=== PATIENT | male | born 1945 | race Caucasian/White ===

== ENCOUNTER 2018-04-23 07:25 | Inpatient (IN) | payer MEDICARE, BC ==
[2018-04-23] MEDS ORDERED: methylPREDNISolone 125 MG* 2 ML VIAL IV ONE (07:31)
[2018-04-23] MEDS ORDERED: Albuterol/Ipratropium NEB.SOL* Albuterol 2.5 MG/Ipratropium 0.5 MG 3 ML INH ONE (07:31)
[2018-04-23] MEDS ORDERED: NS 0.9% 1000 ML* 1,000 ML IV ONE ×2 (07:32→08:03)
[2018-04-23] MEDS ORDERED: Azithromycin IV(*) 500 MG in NS 0.9% 250 ML* 250 ML IVPB ONE (07:34)
[2018-04-23 07:42] LABS: ABS Basophils 0.1 10^3/ul (0-0.2); ABS Eosinophils 0.4 10^3/ul (0-0.6); ABS Lymphocytes 4.5 10^3/ul (1.0-4.8); ABS Monocytes 0.9 10^3/ul (0-0.8); ABS Neutrophils 7.7 10^3/ul (1.5-7.7); ABS Nucleated RBC 0 10^3/ul; Eosinophil % 3.1 % (0-6); Hematocrit 30 % (42-52); Hemoglobin 9.5 g/dl (14.0-18.0); Lymphocyte % 33.2 % (25-47); Mean Corpuscular HGB Conc 31 g/dl (31-36); Mean Corpuscular Hemoglobin 30 pg (27-31); Mean Corpuscular Volume 95 fL (80-94); Mean Platelet Volume 9.5 um3 (7.4-10.4); Nucleated Red Blood Cells % 0.1; Platelet Count 297 10^3/ul (150-450); Red Blood Count 3.18 10^6/ul (4.00-5.40); Red Cell Distribution Width 14 % (10.5-15); White Blood Count 13.6 10^3/ul (3.5-10.8)
--- NOTE | 2018-04-23 07:54 | ED ---
Respiratory - HPI Summary HPI Summary: This patient is a 73 year old M BIBA to ED with a chief complaint of COPD exacerbation since 299 this morning. The patient notes difficulty breathing overnight and called EMS in the morning. EMS reports finding him adkins, mottled and with an episode of unresponsiveness. PIV established by EMS, patient put on CPAP with ECO2 of 10, RR 8 and SPO2 88%. Albuterol and Atrovent given by EMS. The patient rates the pain 0/10 in severity. Symptoms aggravated by nothing. Symptoms alleviated by EMS treatment. Nurse in room reports wheezing. Patient denies CP and abdominal pain. The patient reports he smokes 2 PPD. Patient is not on O2 at home. PMHx of DM and HTN. No hx of DVT. - History of Current Complaint Chief Complaint: EDRespiratoryDistress Stated Complaint: RESP DISTRESS Time Seen by Provider: 04/23/18 07:35 Hx Obtained From: Patient Onset/Duration: Sudden Onset, Lasting Hours - since 299, Still Present Current Severity: None Pain Intensity: 0 Character: Wheezing Aggravating Factor(s): Nothing Alleviating Factor(s): Other - treatment given by EMS (CPAP with ECO2 of 10, RR 8 and SPO2 88%, Albuterol and Atrovent) - Allergy/Home Medications Allergies/Adverse Reactions: Allergies Allergy/AdvReac Type Severity Reaction Status Date / Time levofloxacin Allergy Hives/Diff. Verified 04/23/18 07:36 Breathing/I tching Penicillins Allergy Rash Verified 04/23/18 07:36 PMH/Surg Hx/FS Hx/Imm Hx Endocrine/Hematology History: Reports: Hx Diabetes - TYPE 2 Cardiovascular History: Reports: Hx Hypertension - ON MEDS, Other Cardiovascular Problems/Disorders - HIGH CHOLESTEROL Respiratory History: Denies: Other Respiratory Problems/Disorders GI History: Reports: Hx Gastroesophageal Reflux Disease Denies: Other GI Disorders History: Reports: Hx Kidney Stones - current Denies: Other Problems/Disorders Musculoskeletal History: Denies: Other Musculoskeletal History Sensory History: Reports: Hx Cataracts - VINNIE Denies: Hx Hearing Aid Comment Only: Hx Contacts or Glasses - GLASSES Opthamlomology History: Reports: Hx Cataracts - VINNIE Comment Only: Hx Contacts or Glasses - GLASSES Neurological History: Reports: Hx Migraine - IN THE PAST Denies: Other Neuro Impairments/Disorders Psychiatric History: Reports: Hx Anxiety - PAST, Hx Depression - PAST - Surgical History Surgery Procedure, Year, and Place: LEFT SHOULDER , 1990, [place]. [place] [facility] [place] HYDROCELE REPAIR, 1970S. ARM FX, 1954. TONSILECTOMY A CHILD WITH ADENOIDECTOMY. [place]RETERAL ST[place] 02/[place], [facility] [place] Hx Anesthesia Reactions: No Infectious Disease History: No Infectious Disease History: Denies: Traveled Outside the [place] in Last 30 Days - Family History Known Family History: Positive: Other Family History: hiatal hernia - mother - Social History Alcohol Use: Rare Alcohol Amount: 3 PER YEAR Substance Use Type: Reports: None Smoking Status (MU): Heavy Every Day Tobacco Smoker Type: Cigarettes Amount Used/How Often: 2 PACKS A DAY Length of Time of Smoking/Using Tobacco: pack and a half a day Have You Smoked in the Last Year: Yes Review of Systems Positive: Other - per EMS, the patient was deutsch, mottled, and had 1 episode of unresponsiveness Negative: Chest Pain Positive: Other - COPD exacerbation, difficulty breathing, wheezing Negative: Abdominal Pain All Other Systems Reviewed And Are Negative: Yes Physical Exam - Summary Physical Exam Summary: GENERAL: Patient is a well developed and nourished M who is lying comfortable in the stretcher. Patient is not in any acute respiratory distress. HEAD AND FACE: Normocephalic EYES: PERRLA, EOMI x 2. EARS: Hearing grossly intact. MOUTH: Oropharynx within normal limits. NECK: Supple, trachea is midline, no adenopathy, no JVD, no carotid bruit. CHEST: Symmetric, no tenderness at palpation LUNGS: No crackles. Wheezing throughout. Increased work of breathing. CVS: Regular rhythm, Tachycardic, S1 and S2 present, no murmurs or gallops appreciated. ABDOMEN: Soft, non-tender. Bowel sounds are normal. No abdominal abnormal pulsations. EXTREMITIES: Full ROM in all major joints, no cyanosis or clubbing. Bilateral pedal edema, worse on L than on R. NEURO: Alert and oriented x 3. No acute neurological deficits. Speech is normal and follows commands. SKIN: Dry and warm Triage Information Reviewed: Yes Vital Signs On Initial Exam: Initial Vitals Temp Pulse Resp BP Pulse Ox 95.4 F 113 20 190/83 91 04/23/18 07:31 04/23/18 07:31 04/23/18 07:31 04/23/18 07:31 04/23/18 07:31 Vital Signs Reviewed: Yes Diagnostics - Vital Signs Vital Signs Temp Pulse Resp BP Pulse Ox 04/23/18 07:41 102 29 206/95 100 04/23/18 07:39 103 20 100 04/23/18 07:37 104 22 204/95 100 04/23/18 07:34 20 04/23/18 07:31 95.4 F 113 20 190/83 91 - Laboratory Lab Results: Lab Results 04/23/18 Range/Units 07:32 WBC 13.6 H (3.5-10.8) 10^3/ul RBC 3.18 L (4.00-5.40) 10^6/ul Hgb 9.5 L (14.0-18.0) g/dl Hct 30 L (42-52) % MCV 95 H (80-94) fL MCH 30 (27-31) pg MCHC 31 (31-36) g/dl RDW 14 (10.5-15) % Plt Count 297 (150-450) 10^3/ul MPV 9.5 (7.4-10.4) um3 Neut % (Auto) 56.4 (38-83) % Lymph % (Auto) 33.2 (25-47) % Turner % (Auto) 6.9 (0-7) % Eos % (Auto) 3.1 (0-6) % Baso % (Auto) 0.4 (0-2) % Absolute Neuts (auto) 7.7 (1.5-7.7) 10^3/ul Absolute Lymphs (auto) 4.5 (1.0-4.8) 10^3/ul Absolute Monos (auto) 0.9 H (0-0.8) 10^3/ul Absolute Eos (auto) 0.4 (0-0.6) 10^3/ul Absolute Basos (auto) 0.1 (0-0.2) 10^3/ul Absolute Nucleated RBC 0 10^3/ul Nucleated RBC % 0.1 Result Diagrams: 04/23/18 07:32 04/24/18 06:00 Lab Statement: Any lab studies that have been ordered have been reviewed, and results considered in the medical decision making process. - Radiology CXR Radiology Interpretation Completed By: Radiologist - In this clinical setting chest x-ray findings are most consistent with vascular congestion and/or pulmonary edema. ED physician has reviewed this radiology report. - EKG 0739 Cardiac Rate: Tachycardia - 103 BPM EKG Rhythm: Sinus Tachycardia EKG Interpretation: RBBB, LVH Disposition - Course Assessment/Plan: This patient is a 73 year old M BIBA to ED with a chief complaint of COPD exacerbation since 0300 this morning. Labs were reviewed and remarkable for pH for 7.19, pCO2 at 40, and bicarb of 15.5, consistent for metabolic acidosis. Remarkable WBC of 13.6, creatinine of 3.3 and BUN of 52, which is chronic. Lactic acid is 2.9. glucose is 375. BNP is 629. CXR reveals pulmonary edema. Covered broadly with vancomycin and aztreonam, given that he is allergic to penicillin. The patient was started on insulin drip. Patient is currently stable on BiPAP and admitted to ICU. Case discussed with Dr. De Santiago who spoke to the hospitalist, Dr. Guzman, who accepts the patient for admisison. I discussed results with patient. The patient agrees with this plan. - Diagnoses Provider Diagnoses: Difficulty breathing, Hyperglycemia - Physician Notifications Discussed Care Of Patient With: Ryan De Santiago Time Discussed With Above Provider: 08:50 Instructed by Provider To: Other - Consulted Dr. De Santiago about the patient's case ; he will consult Dr. De Santiago about the patient. Dr. De Santiago consulted Dr. Guzman who accepts the patient for admission. - Critical Care Time Critical Care Time: 30-74 min - 45 minutes Discharge - Sign-Out/Discharge Documenting (check all that apply): Patient Departure - Discharge Plan Condition: Stable Disposition: ADMITTED TO [facility] - Billing Disposition and Condition Condition: STABLE Disposition: Admitted to [facility] - Attestation Statements Document Initiated by Scribe: Yes Documenting Scribe: Jorge Crooks Provider For Whom Dao is Documenting (Include Credential): Chase Seay MD Scribe Attestation: Jorge Alvarez, scribed for Chase Seay MD on 04/24/18 at 0757. Scribe Documentation Reviewed: Yes Provider Attestation: The documentation as recorded by the scribJorge murphy accurately reflects the service I personally performed and the decisions made by me, Chase Seay MD
[2018-04-23 08:03] LABS: INR 0.9 (0.77-1.02)
[2018-04-23 08:36] LABS: EGFR Non-African American 18.2 (>60)
[2018-04-23] MEDS ORDERED: Vancomycin(*) 1,000 MG in NS 0.9% 250 ML* 250 ML IVPB ONE (08:44)
[2018-04-23] MEDS ORDERED: Insulin IVPB 100 units/100 ml 100 UNITS/100 ML UNIT IVPB ONE (08:53)
[2018-04-23] MEDS ORDERED: Aztreonam (*) 1 GM in NS 0.9% 50 ML* 50 ML IVPB SCH (09:00)
[2018-04-23] MEDS ORDERED: Acetaminophen TAB* 325 MG PO PRN (09:10)
[2018-04-23] MEDS ORDERED: NS 0.9% 1000 ML* 1,000 ML IV SCH (09:15)
[2018-04-23] MEDS ORDERED: cefTRIAXone(*) 1 GM in NS 0.9% 50 ML* 50 ML IVPB SCH ×2 (10:00→12:00)
[2018-04-23] MEDS ORDERED: Insulin IVPB 100 units/100 ml 100 UNITS/100 ML UNIT IVPB SCH (10:00)
--- NOTE | 2018-04-23 10:06 | RAD ---
INDICATION: Shortness of breath. COMPARISON: Most recent comparison chest x-rays dated March 22, 2010 TECHNIQUE: Single AP portable view of the chest was obtained. FINDINGS: Image quality is compromised due to the relative inferiority of a portable chest x-ray. An automatic external defibrillator pad is noted overlying the right upper lung. The heart and mediastinum exhibit normal size and contour. The pulmonary vasculature appears engorged and indistinct. There are faint patchy densities overlying the bilateral lungs. There is no lobar consolidation. The costophrenic angles are adequately defined. Visualized bones are normal for the patient's age. IMPRESSION: In this clinical setting chest x-ray findings are most consistent with vascular congestion and/or pulmonary edema.
[2018-04-23] MEDS ORDERED: cefTRIAXone(*) 1 GM ADVAN/BAG ONE (10:37)
[2018-04-23] MEDS ORDERED: Albuterol/Ipratropium NEB.SOL* Albuterol 2.5 MG/Ipratropium 0.5 MG 3 ML INH SCH (11:00)
[2018-04-23] MEDS ORDERED: Metoprolol Tartrate IV* 1 MG/ML 5 ML VIAL IV PRN (12:08)
[2018-04-23] MEDS ORDERED: Metoprolol Tartrate IV* 1 MG/ML 5 ML VIAL ONE (12:15)
[2018-04-23] MEDS ORDERED: Perflutren Lipid Microsphere* 3 ML VIAL ONE (12:41)
[2018-04-23] MEDS ORDERED: hydrALAZINE IV* 20 MG/ML VIAL IV SLOW PU ONE (13:00)
[2018-04-23] MEDS: Polyethylene Glycol 3350* 17 GM PACKET PO SCH ×2 (13:09→21:45)
[2018-04-23] MEDS ORDERED: Heparin VIAL(*) 5000 UNITS/ML VIAL (FIVE THOUSAND) SUBCUT SCH (14:00)
[2018-04-23] MEDS ORDERED: Morphine INJ* 2 MG/ML 1 ML SYRINGE (TWO MG - NEW SYRINGE VERSION) ONE (14:24)
[2018-04-23] MEDS ORDERED: Heparin DRIP 25,000 UNITS(*) 25,000 UNITS/500 ML BAG IV SCH (14:45)
--- NOTE | 2018-04-23 14:55 | HP ---
CC: Dr. Mcleod; Intensive Care Physician; Dr. Berhane De Santiago HISTORY AND PHYSICAL: DATE OF ADMISSION: 04/23/18 TIME OF EVALUATION: 8:45 a.m. PRIMARY CARE PHYSICIAN: Dr. Mcleod. CHIEF COMPLAINT: Shortness of breath. Please note that the history is limited as the patient is in respiratory distress on BiPAP. HISTORY OF PRESENT ILLNESS: Mr. Damon is a 73-year-old male with a past medical history of hypertension, type 2 diabetes, GERD, hyperlipidemia, nephrolithiasis, who presented to the emergency room with severe shortness of breath. The patient states that he was feeling well yesterday and around 3 in the morning, he started to feel short of breath and that progressed quickly. He states that he took a breathing treatment and the symptoms continue to worsen and then he called 911. Originally, the patient was called to the emergency room as an ABC alert as EMS found him in respiratory distress described as "deutsch , mottled, and with an episode of unresponsiveness." The patient was put on CPAP with an end tidal CO2 of 10, respiratory rate is 8, oxygen saturation of 88 % and he received albuterol and Atrovent. As per the ED records, the patient is a heavy smoker and he was hypertensive on arrival with a blood pressure of 206/95. The patient denies chest pain, palpitation. He said he had some chest tightness and he could not breathe well. At this point, he offers no other complaints. PAST MEDICAL HISTORY: 1. GERD. 2. Type 2 diabetes. 3. Hyperlipidemia, 4. Hypertension. 5. Lymphoma. 6. Nephrolithiasis. 7. CKD, stage 3. MEDICATION LIST: Medication list is not available at this time and will be obtained. ALLERGIES: With PENICILLIN, the patient had a rash and with LEVOFLOXACIN, he had hives, difficulty breathing and itching. FAMILY HISTORY: As per records is noncontributory. SOCIAL HISTORY: As per record, the patient smokes a [id number]-half a day. No history of alcohol or drug use. 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 REVIEW OF SYSTEMS: It is very limited due to the patient's respiratory distress , so all the pertinent negative and positive findings are in the HPI. PHYSICAL EXAMINATION GENERAL: The patient is an elderly gentleman, sitting up in the ED stretcher, in mild respiratory distress with BiPAP on. VITAL SIGNS: Temperature 97.0, heart rate 98, respiratory rate is 18, oxygen saturation is 100% on BiPAP 16/80, FiO2 70%, blood pressure 127/64. CHEST: Breath sounds bilaterally diminished with scattered wheeze and bibasilar rales. CVS: S1, S2. Regular rate and rhythm. ABDOMEN: Soft. Bowel sounds are present. EXTREMITIES: Mild bilateral lower extremity pitting edema. NEURO: He is alert, oriented x3. Able to move all 4 extremities. LABORATORY/IMAGING DATA: The patient had a CBC that showed WBC of 13.6, hemoglobin of 9.5, hematocrit of 30, platelets of 297 with 56% neutrophils. INR is 0.9. ABG showed pH of 7.19, pCO2 of 40, pO2 227 with a bicarb of 15. Chemistry showed sodium 137, potassium 0.7, chloride 107, bicarb of 17, anion gap of 13, BUN of 52, creatinine of 3.34, glucose 375, lactic acid of 2.9, calcium of 8.6, LFTs are normal. Troponin is 0.6, CRP 14.8, BNP 629. Chest x-ray has not yet been officially read, but to my read shows vascular congestion. EKG done 04/23 at 7:39 shows sinus tachycardia at 102 beats per minute with a right bundle-branch block and no acute ischemic changes. He has taller T waves , but the right bundle-branch block was already present in 2009. ASSESSMENT AND PLAN: Mr. Damon is a 73-year-old with a past medical history of gastroesophageal reflux disease, type 2 diabetes, hyperlipidemia, hypertension, lymphoma, nephrolithiasis, who presented to the emergency room in respiratory distress. 1. Acute hypoxemic respiratory failure. Etiology is unclear at this time. He appears to have some signs of chronic obstructive pulmonary disease exacerbation, so he will be continued on bronchodilators, steroids, ceftriaxone , and Zithromax. We will continue respiratory support with BiPAP. His initial blood gas showed a metabolic acidosis and we are going to repeat it. Another possibility is that this respiratory failure is cardiac in nature as the patient's x-rays suggest vascular congestion and he does have elevation of his troponin, but it is unclear if this is the cause or consequence of his respiratory failure. I am going to check an echocardiogram and the patient is going to have serial troponins. His EKG shows no acute ischemic changes and he has no complaints of chest pain at this time. Another possibility would be pulmonary embolism to explain the sudden onset of his shortness of breath. The patient has a right bundle-branch block on his EKG , but this is not new. He has no complaints of chest or lower extremity pain. I am going to check a lower extremity Doppler to rule out deep vein thrombosis. Unfortunately with his renal function, he cannot have a CTA of the chest, so when he is more stable, he will probably benefit from a v/Q scan. 2. Anion gap metabolic acidosis. Suspect secondary to his respiratory distress with poor perfusion, but the patient may also have mild diabetic ketoacidosis as his glucose is 375 and he has anion gap of 13. The patient will be admitted to intensive care unit, we are going to check fingersticks q.1 hour and he will be started on regular insulin drip and we will adjust according to his glucose. 3. Hypertensive urgency, likely secondary to his respiratory distress as his blood pressure is now normal after being on respiratory support with BiPAP. 4. DVT prophylaxis, the patient has a score of 4 on the DVT Prophylaxis Risk Assessment Guide and he will be started on subcutaneous heparin. 5. Code status is full. TIME SPENT: Approximately 55 minutes of critical care time was spent to complete the admission. [id number]/CPS #: [id number] MANGO
[2018-04-23] MEDS ORDERED: D5W NS 0.9% 20Meq KCL 1000 ML* 1,000 ML IV SCH (15:00)
[2018-04-23] MEDS ORDERED: nitroGLYCERIN DRIP* 25,000 MCG/250 ML BTL IV SCH (15:00)
[2018-04-23 15:03] LABS: Urine Appearance Cloudy; Urine Blood 3+ (Negative); Urine Color Yellow; Urine Ketones Negative (Negative); Urine Protein 2+(100 mg/dL) (Negative); Urine Red Blood Cell 1+(3-5/hpf) (Absent); Urine Specific Gravity 1.016 (1.010-1.030); Urine Urobilinogen Negative (Negative); Urine White Blood Cell Trace(0-5/hpf) (Absent)
[2018-04-23] MEDS ORDERED: Atorvastatin* 80 MG TAB PO ONE (15:39)
[2018-04-23] MEDS ORDERED: Heparin(*) 1000 UNIT/ML 10 ML VIAL CATH LAB IV ONE (15:56)
[2018-04-23] MEDS ORDERED: Midazolam* 1 MG/ML 10 ML VIAL (10 MG) ONE (15:56)
[2018-04-23] MEDS ORDERED: VERAPAMIL 2.5 MG/ML 2 ML VIAL ** 5 mg/2 ml ONE (15:56)
[2018-04-23] MEDS ORDERED: fentaNYL* 50 MCG/ML 2 ML VIAL (100 MCG VIAL) ONE (15:56)
[2018-04-23] MEDS ORDERED: Heparin 2 UNITS/ML IVPREMIX* 3,000 ML IV ONE (15:56)
[2018-04-23] MEDS ORDERED: nitroGLYCERIN DRIP* 25,000 MCG/250 ML BTL ONE (15:57)
[2018-04-23] MEDS ORDERED: Iodixanol* (CONTRAST) 320 MG/ML 100 ML SDV ONE (15:58)
[2018-04-23] MEDS ORDERED: Lidocaine 1%* 5 ML VIAL ONE (15:58)
--- NOTE | 2018-04-23 15:58 | ECHO ---
Patient: ARNULFO LEW [facility] Rec#: [id number] : 1945 Date: 04/23/2018 Age: 73y Height: 173 cm / 68.1 in Weight: 67 kg / 147.7 lbs Sex: M BSA: 1.8 Room#: ICU 10 Admit Date#: 04/23/2018 Type: Inpatient Referring: Micaela Seth MD Reading: Yamel Pollock MD Receiving Worker: Naida Clements,RADHACS,RDMS CC: Jignesh Mcleod MD Transthoracic Echocardiogram Indication: CHF BP: 174/78 HR: 86 Rhythm: NSR Findings History: COPD, smoker, HTN, HLD, DM Technical Comments: The study quality is fair. The study is technically limited due to the patient's history of COPD. Left Ventricle: The left ventricular chamber size is normal. Moderate concentric left ventricular hypertrophy is observed. There is a focal wall motion abnormality present.Hypokinesis of the basilar 2/3 of the posterior wall extending into the inferior wall and septum, best seen on 3 chamber view. The estimated ejection fraction is 40-45%. Abnormal left ventricular diastolic function is observed. Left Atrium: The left atrium is slightly dilated. Right Ventricle: The right ventricle is not well visualized. The right ventricular global systolic function is normal. Right Atrium: The right atrium is not well visualized. Aortic Valve: The aortic valve leaflets are moderately thickened. There is no evidence of aortic regurgitation. There is no evidence of aortic stenosis. Mitral Valve: The mitral valve leaflets are mildly thickened. There is trace to mild mitral regurgitation. There is no evidence of mitral stenosis. Tricuspid Valve: The tricuspid valve leaflets are normal. There is no evidence of tricuspid valve regurgitation. Unable to estimate the right ventricular systolic pressure. Pulmonic Valve: The pulmonic valve structure is not well visualized. Pericardium: There is no significant pericardial effusion. Aorta: The ascending aorta is not well visualized. The aortic arch is not well visualized. The aortic root is normal in size. Pulmonary Artery: The main pulmonary artery is not well visualized. Venous: The inferior vena cava appears normal in size. There is no change in the dimension of the inferior vena cava with respiration consistent with markedly increased right atrial pressure. Contrast: Definity was used to optimize study. A total of 3 ml was used. Administered by Chai (RING MAKER) Conclusions Moderate concentric left ventricular hypertrophy is observed. Posterior wall hypokinesis extending to the inferior wall and the septum. The estimated ejection fraction is 40. Abnormal left ventricular diastolic function is observed. The right ventricular global systolic function is normal. The aortic valve leaflets are moderately thickened, no evidence of significant stenosis, DI is 0.62 . There is trace to mild mitral regurgitation. No prior echo to compare. Measurements Name Value Normal Range IVSd (2D) 1.6 cm (0.6 - 1) LVPWd (2D) 1.4 cm (0.6 - 1) LVIDd (2D) 4.6 cm (3.6 - 5.4) LVIDs (2D) 3.7 cm - LV FS (2D) 20 % (25 - 45) Aortic Annulus 2.1 cm (1.4 - 2.6) Ao root diameter (2D) 2.9 cm (2.1 - 3.5) LA dimension (AP) 2D 4.4 cm (2.3 - 3.8) LAd ISD 4CH 4.5 cm (2.9 - 5.3) LA ISD 4CH W 5 cm (2.5 - 4.5) Name Value Normal Range LA ESV BP (A/L) index 26 ml/m2 - Name Value Normal Range MV E-wave Vmax 0.8 m/sec - MV deceleration time 182 msec - MV A-wave Vmax 0.8 m/sec - MV E:A ratio 1 ratio - LV septal e' Vmax 0.03 m/sec - LV lateral e' Vmax 0.08 m/sec - LV E:e' septal ratio 23 ratio - LV E:e' lateral ratio 10 ratio - Name Value Normal Range AV Vmax 1.2 m/sec - AV VTI 21 cm - AV peak gradient 6 mmHg - AV mean gradient 3 mmHg - LVOT Vmax 0.8 m/sec - LVOT VTI 13 cm - LVOT peak gradient 2.6 mmHg - LVOT mean gradient 1 mmHg - Name Value Normal Range RAP 8 mmHg - IVC diameter 2.1 cm - Name Value Normal Range PV Vmax 1.2 m/sec - PV peak gradient 6 mmHg -
[2018-04-23] MEDS ORDERED: Aspirin TAB* 325 MG ONE (16:22)
[2018-04-23] MEDS ORDERED: Furosemide IV* 10 MG/ML VIAL (40 MG) ONE (16:45)
[2018-04-23] MEDS ORDERED: methylPREDNISolone SOD 40 MG* 1 ML VIAL IV SCH (17:00)
[2018-04-23] MEDS ORDERED: niCARdipine 0.1MG/ML IVPREMIX* 20 MG/200 ML BAG ONE (17:17)
[2018-04-23] MEDS ORDERED: Ticagrelor* 90 MG TAB PO ONE (17:40)
[2018-04-23] MEDS ORDERED: Nitroglycerin TAB 0.4 MG* 0.4 MG TAB SL PRN (18:50)
[2018-04-23] MEDS: Albuterol/Ipratropium NEB.SOL* Albuterol 2.5 MG/Ipratropium 0.5 MG 3 ML INH PRN (20:07)
[2018-04-23] MEDS: Insulin LISPRO* 1 UNITS UNIT SUBCUT SCH (20:36)
[2018-04-23] MEDS: Ondansetron INJ* 2 MG/ML VIAL IV SCH (20:37)
--- NOTE | 2018-04-23 20:53 | RAD ---
EXAM: US Duplex Bilateral Lower Extremity Veins CLINICAL HISTORY: 73 years old, male; Signs and symptoms; Other: Short of breath; Additional info: Respiratory failure, R/O dvt TECHNIQUE: Real-time duplex ultrasound scan of the bilateral lower extremity veins integrating B-mode two-dimensional vascular structure, Doppler spectral analysis, color flow Doppler imaging and compression. COMPARISON: No relevant prior studies available. FINDINGS: Right deep veins: Unremarkable. No DVT in the right common femoral, femoral, proximal deep femoral or popliteal veins. The veins demonstrate normal color flow, are normally compressible, with normal phasic flow and/or augmentation response. Right superficial veins: Unremarkable. No thrombus in the visualized right great saphenous vein. Left deep veins: Unremarkable. No DVT in the left common femoral, femoral, proximal deep femoral or popliteal veins. The veins demonstrate normal color flow, are normally compressible, with normal phasic flow and/or augmentation response. Left superficial veins: Unremarkable. No thrombus in the visualized left great saphenous vein. Soft tissues: No acute findings. No popliteal cyst. IMPRESSION: Normal bilateral lower extremity duplex venous ultrasound.
[2018-04-23] MEDS ORDERED: Metoprolol Tartrate TAB* 25 MG PO SCH (21:00)
--- NOTE | 2018-04-23 21:01 | CONS ---
CC: Jignesh Mcleod MD CARDIOLOGY CONSULTATION REPORT: DATE OF CONSULT: 04/23/18 REASON FOR CONSULT: Shortness of breath, mild elevation in troponins, concern for ischemia. CHIEF COMPLAINT: Chest tightness and shortness of breath. HISTORY OF PRESENT ILLNESS: Mr. Damon is a 73-year-old gentleman with known renal insufficiency, ath erosclerotic risk of hypertension, type 2 diabetes and dyslipidemia but no past cardiac history. The patient has been constipated, was trying to have a bowel movement and was successful and afterwar ds developed acute shortness of breath and tightness around the lower ribcage, chest and epigastric a naveen. It was quite severe and the supervisor toy parts former were called. He was found deutsch, mottled and unresponsive. The patient was admitted to the unit through the ED, but has had ongoing shortness of breath and ches t tightness. His initial troponin was 0.6. An ECG showed some nonspecific lateral ST depression. PAST MEDICAL HISTORY: 1. Chronic renal insufficiency stage 3. 2. Type 2 diabetes. 3. Dyslipidemia. 4. Hypertension. 5. Reflux. 6. Lymphoma. 7. Nephrolithiasis. CURRENT INPATIENT MEDICATIONS: Include: 1. Albuterol nebulizer. 2. Subcutaneous heparin, converted to heparin drip. 3. Insulin. 4. Lopressor 25 mg b.i.d. 5. Morphine sulfate p.r.n. 6. Nitroglycerin drip. 7. MiraLax. 8. Potassium. ALLERGIES: Include LEVOFLOXACIN, and PENICILLIN. FAMILY HISTORY: Significant in that his father of a heart attack at age 64. SOCIAL HISTORY: The patient is an active smoker, a pack and a half a day. Denies recreational drug use. 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 REVIEW OF SYSTEMS: A 15-point review of system was positive for constipation. He was vague about an y medication adjustments recently. Positive for the acute onset of chest discomfort and shortness of breath. Negative for recent fevers, chills, sweats. PHYSICAL EXAM: The patient is 5 feet 8 inches, weighs 148 pounds with a BMI of 22.5. Vital Signs: On arrival to the emergency room, blood pressure 190/83, pulse is 113 and regular, respiratory rate 2 0, afebrile, oxygen saturation is 91% on CPAP. Currently, the patient's blood pressure is 159/59, pulse is 91, respiratory rate is 30, oxygen satura tion is 94% with oxygen of 50%. The patient is a tachypneic older gentleman, lying at 40 degrees, a bit vague (recent morphine). Psychologically pleasant and cooperative. Neurologically again vague w ith recent morphine, but awake, alert, and oriented to person and place. I did not check for time. He follows commands well and speech is articulate. HEENT: Mucous membranes moderately moist with ma sk on. Neck: No carotid bruits appreciated. Breath sounds good effort, few crackles in the bases. Coronary: S1, S2 regular with a soft systolic murmur heard in the upper sternal border. Abdomen: Active bowel sounds. Soft, nontender. He has strong radial pulses and 1 to 2+ posterior tibial puls es that are symmetrical. DIAGNOSTIC STUDIES/LAB DATA: A 12-lead ECG today shows normal sinus rhythm, 85 beats per minute, QRS axis -75, normal AV conduction times. He has a right bundle- branch block and he has a very subtle ST depression in the lateral leads, unchanged from EKG this morning. When compared with the old EKG of 2009, at that time he had a left anterior fascicular block and right bundle-branch block but no Q' s in the inferior leads as he does today. Sodium 137, potassium 3.7, bicarb 17, BUN 52, creatinine 3.34, glucose 375, lactic acid 2.9. AST 18, ALT 16. Troponin #1 of 0.60. Troponin #2 of 1.33. Troponin #3 of 31.42. White count 13.6, hemogl obin 9.5, hematocrit 30 (baseline in 2016 was 35). ABG from 7:40 this morning: pH 7.19, pCO2 of 40, pO2 of 227. Venous blood gas from 2 p.m. today: pH 7.16, pCO2 of 47, pO2 of 28. Venous oxygenatio n 41, base excess -11. Echocardiogram showed inferior wall hypokinesis and aortic valve sclerosis, full report to follow. Chest x-ray from 7:30 this morning, consistent with vascular congestion/pulmonary edema. SUMMARY: In summary, Vasquez Damon is a 73-year-old gentleman, who presented with acute onset of shor tness of breath and chest tightness following a difficult bowel movement with constipation. He was f ound obtunded and responded to CPAP in terms of respiratory distress, but continues to have ongoing c hest tightness and shortness of breath. Although his EKG did not show remarkable findings and he may have even had an old inferior wall myocardial infarction with Q's in lead 3 and aVF, the story and t roponins are very concerning for an acute inferior wall myocardial infarction, possibly circumflex as this can be hidden on EKG. As he has ongoing pain despite beta-blockers, heparin and nitro drip and troponins rising acutely, we have discussed going to the labor standards director even with the risk to his kidneys. The case has been discussed with Dr. Olsen and the labor standards director has been alerted. In the interim, we will continue with aggressive risk factor modification. I will initiate a statin as it is not listed as an allergy and he has a history of dyslipidemia and LFTs are normal. I will l eave the decision about anti-platelet agents in Dr. Olsen' hands. Mr. Damon is a high risk candidat e for interventions, but I think he is at higher risk for not intervening. I did discuss the risk of the need for dialysis and permanent kidney damage with the patient. [id number]/[facility] #: [id number]
[2018-04-23] MEDS: Ticagrelor* 90 MG TAB PO SCH (21:45)
[2018-04-23] MEDS: Metoprolol Tartrate TAB* 25 MG PO SCH (21:46)
[2018-04-23 21:47] LABS: EGFR Non-African American 20.2 (>60)
--- NOTE | 2018-04-23 23:13 | CATH ---
CC: Dr. Mcleod; Sabi Olsen MD * STENT REPORT: DATE OF PROCEDURE: 04/23/18 - ROOM #ICU-10 PRIMARY CARE PHYSICIAN: Dr. Mcleod. PROCEDURE: Right radial artery access, left heart catheterization, bilateral selective coronary cineangiography, FFR evaluation left main. Stent placement RCA 3.5 x 20 mm drug-eluting stent. FFR evaluation distal RCA. Angiosculpt Angioplasty RPDA 2.5 x 15, stent placement distal RCA 2.5 x 20 Synergy drug- eluting stent post dilated to 2.75 mm. HISTORY: A 73-year-old male with CKD stage 3, diabetes, hypertension, and hyperlipidemia; initially presented with diagnoses of respiratory failure and DKA. Subsequent history revealed a component of chest discomfort, his troponin increased to 30, he developed inferior Q-waves. Cardiology was consulted. CXR showed CHF. Echocardiogram showed an inferior wall-motion abnormality with LVEF of 40% to 45%. Pre labor arbitrator hearing office, he was in respiratory distress with expiratory wheezing and tachypnea, had been receiving IV fluids. ACCESS: Right radial artery sheath 6-F Slender. MEDICATIONS: 1. Lasix 80 mg IV in CCL prior to cath. 2. Nitroglycerin IV at 30 mcg per minute, titrated up to 90 mcg per minute because of persisting hypertension. At the end of the case, Cardene 5 mg per hour IV was added after 100 mcg of Cardene IV, reduced his systolic blood pressure to 140. 3. Radial cocktail 3000 units, nitroglycerin 300 mcg, verapamil 3 mg IA. 4. Additional heparin 2000 units, 2000 units. 5. IV adenosine was used for assessment of the left main with FFR. The adenosine was not required for assessment of the distal RCA stenosis given a significant resting abnormal FFR. DIAGNOSTIC CATHETER: 5F TIG4 which was also used to measure LV pressure. GUIDING CATHETER: RCA 6F R4, wire 14 BMW. After diagnostic coronary angiography, FFR of the left main was performed using the TIG4 catheter and IV adenosine with the catheter disengaged from the ostium. FFR was nonischemic. Left main FFR was 0.85. The 6F R4 guide was then introduced, with the plan of revascularizing the ulcerated mid RCA stenosis and then evaluate the more distal complex bifurcation disease with FFR with the hope of not needing to use additional contrast given his severe renal dysfunction. The mid RCA was stented with a 3.5 x 20 Synergy drug-eluting stent deployed at 11 atmospheres and then post dilated with a 3.5 x 20 NC balloon to 20 atmospheres for 30 seconds. FFR wire was then positioned in the RCA continuation where resting FFR was 0.66, ischemic. It was then redirected into the PDA where the FFR was 0.57, again ischemic. A 2.5 x 15 AngioSculpt balloon was therefore advanced over the FFR wire into the PDA ostium where it was inflated to 8 atmospheres for 2 minutes. The AngioSculpt balloon was removed, a 2.5 x 20 Synergy drug-eluting stent was then deployed across the PDA ostium at 11 atmospheres and then postdilated with a 2.75 x 20 NC balloon to 16 atmospheres at 30 seconds. Angiographic reassessment demonstrated a good angiographic result. Hemostatic band was used for right radial artery hemostasis. HEMODYNAMICS: Initial BP 182/88, precontrast LV pressure 163/14-35, no aortic valve gradient on pull back. ANGIOGRAPHY: Due to very low GFR # of injections and contrast per injection were minimized. Left main. The left main is short, has an ostial eccentric 50% stenosis seen best in the ROMERO cranial projection. This was hemodynamically insignificant by FFR. LAD. The LAD is calcified, moderate in size, extends to the apex, with a moderate diagonal. The LAD has no flow-limiting stenosis. Circumflex. The circumflex is not dominant, is moderate, there is a high first marginal which has a fairly short 80% stenosis which was not approached. This is followed by a small second marginal, circumflex ends with a small posterolateral. RCA. The RCA is large, dominant with a large distribution, has a proximal luminal irregularity, before the crux there is an ulcerated 80% stenosis with some haziness. The vessel then reconstitutes, then tapers, and ends with another 80% stenosis at the crux. The PDA is moderate, RCA continuation supplies a smaller and then a moderate posterolateral. Post FFR, left main and LAD anatomy is unchanged. After revascularization of the RCA mid and distal, flow is JOSE-3, including into the PDA. The PDA ostium has less than 50% stenosis, was not redilated. Distal RCA continuation is unchanged with JOSE-3 flow. CONCLUSION: 1. Two-vessel disease of circumflex OM and RCA, with intermediate ostial left main stenosis. 2. Normal FFR, left main. Excellent angiographic result with drug-eluting stent placement mid RCA, as well as distal RCA after angiosculpt balloon dilatation of the RPDA with markedly ischemic resting FFR. 3. Markedly elevated LVDP in the setting of hypertension and heart failure precath. 4. Hypertension treated with titrated IV nitroglycerin as well as Cardene. 5. Successful right radial artery access. 6. Severe renal insufficiency. [id number]/[facility] #: [id number] [place]
[2018-04-24] MEDS ORDERED: Acetaminophen TAB* 325 MG PO PRN (00:43)
[2018-04-24] MEDS ORDERED: Acetaminophen TAB* 325 MG ONE (01:05)
[2018-04-24] MEDS: Ondansetron INJ* 2 MG/ML VIAL IV SCH ×6 (02:42→20:49)
[2018-04-24] MEDS: Insulin GLARGINE(*) 1 UNITS UNIT SUBCUT SCH (02:48)
[2018-04-24] MEDS: Metoprolol Tartrate TAB* 25 MG PO SCH ×4 (02:51→20:33)
[2018-04-24] MEDS: Insulin LISPRO* 1 UNITS UNIT SUBCUT SCH ×6 (06:44→21:15)
[2018-04-24 07:49] LABS: EGFR Non-African American 20.2 (>60)
[2018-04-24] MEDS ORDERED: Azithromycin IV(*) 500 MG in NS 0.9% 250 ML* 250 ML IVPB SCH (08:00)
[2018-04-24] MEDS: Ticagrelor* 90 MG TAB PO SCH ×2 (08:51→21:33)
[2018-04-24] MEDS: Aspirin EC TAB* 81 MG TAB.EC PO SCH (08:52)
[2018-04-24] MEDS: Polyethylene Glycol 3350* 17 GM PACKET PO SCH ×2 (08:52→21:15)
[2018-04-24] MEDS ORDERED: Isosorbide Mononitrate ER TAB* 30 MG PO SCH (09:00)
[2018-04-24 13:13] LABS: ABS Basophils 0 10^3/ul (0-0.2); ABS Eosinophils 0 10^3/ul (0-0.6); ABS Lymphocytes 0.8 10^3/ul (1.0-4.8); ABS Monocytes 0.6 10^3/ul (0-0.8); ABS Neutrophils 16.3 10^3/ul (1.5-7.7); ABS Nucleated RBC 0 10^3/ul; Eosinophil % 0 % (0-6); Hematocrit 21 % (42-52); Hemoglobin 7.1 g/dl (14.0-18.0); Lymphocyte % 4.6 % (25-47); Mean Corpuscular HGB Conc 33 g/dl (31-36); Mean Corpuscular Hemoglobin 31 pg (27-31); Mean Corpuscular Volume 93 fL (80-94); Nucleated Red Blood Cells % 0.1; Platelet Count 205 10^3/ul (150-450); Red Blood Count 2.31 10^6/ul (4.00-5.40); Red Cell Distribution Width 14 % (10.5-15); White Blood Count 17.7 10^3/ul (3.5-10.8)
[2018-04-24] MEDS: Atorvastatin* 80 MG TAB PO SCH (17:14)
[2018-04-24] MEDS ORDERED: Isosorbide Mononitrate ER TAB* 30 MG PO ONE (19:23)
--- NOTE | 2018-04-24 20:02 | PN ---
Date of Service: 04/24/18 Critical Care Services: Major problem today is a lower GI bleed - about 500 mls of BRB per rectum. Patient has a history of diverticulosis. Is scheduled for 2 units of packed RBCs. Has been hemodynamically stable. Vital Signs: Temp Pulse Resp BP SpO2 FiO2 98.8 F 75 20 181/75 97 55 Physical Exam: Gen:Alert, oriented Lungs: No crackles or wheezes Abdomen:Not distended Extremities:No cyanosis or edema Fluid Balance (Past 24 Hours): 04/24/18 04/25/18 06:59 06:59 Intake Total 3647 1125 Output Total 800 300 Balance 2847 825 Weight 154 lb Intake: IV Fluids 2847 165 D5W NS 20 meq KCL 1057 165 NS (0.9%) 290 IVPB 55 ABX - CEFTRIAXONE 55 Medicated IV 405 CC - Nicarpidine/Cardene 184 CC - Nitroglycerine/ 221 Tridil Oral 340 960 Output: Urine 800 300 Other: Estimated Void Medium Date of Last Bowel 02/22/18 Movement Estimated Stool Amount Large # Voids 4 Labs: 04/24/18 04/24/18 04/24/18 01:00 02:44 06:00 Sodium 133 L Potassium 5.0 Chloride 107 Carbon Dioxide 15 L Anion Gap 11 BUN 58 H Creatinine 3.05 BUN/Creatinine Ratio 19.0 Glucose 167 H POC Glucose (mg/dL) 185 H Calcium 8.2 L Total Creatine Kinase 799 H 647 H CK-MB (CK-2) 112.9 H 89.5 H Troponin I > 78.00 H* > 74.00 H* Triglycerides Cholesterol LDL Cholesterol HDL Cholesterol Blood Type Antibody Screen Crossmatch 04/24/18 04/24/18 04/24/18 12:30 13:00 16:13 WBC 17.7 Hgb 7.1 Hct 21 MCV 93 MCH 31 MCHC 33 RDW 14 Plt Count 205 Sodium Potassium Chloride Carbon Dioxide Anion Gap BUN Creatinine Est GFR ( Amer) Est GFR (Non-Af Amer) BUN/Creatinine Ratio Glucose POC Glucose (mg/dL) 234 H Calcium Total Creatine Kinase CK-MB (CK-2) Troponin I Triglycerides Cholesterol LDL Cholesterol HDL Cholesterol Blood Type O Positive Antibody Screen Negative Crossmatch See Detail Studies: GI Consult Nutrition: Oral diet Impression: 1. Lower GI bleeding (one episode), probably diverticular in origin, and facilitated by antiplatelet Rx for stented coronary arteries. 2. Renal insufficiency (chronic) - stable at the present time. Plan: 1. Plan is to continue antiplatelet Rx for now. 2. Transfuse 2 units packed RBCs - keep Hb > 7 g/dL 3. Keep systolic BP at 150 mm Hg or lower (for LV dysfunction). 4. Watch for return of lower GI bleed. Critical Care Time: 60 minutes
[2018-04-24] MEDS: Morphine INJ* 2 MG/ML 1 ML SYRINGE (TWO MG - NEW SYRINGE VERSION) IV PRN (20:29)
[2018-04-24] MEDS: niCARdipine 0.1MG/ML IVPREMIX* 20 MG/200 ML BAG IV SCH (20:41)
--- NOTE | 2018-04-24 20:56 | CONS ---
CC: Dr. De Santiago; Dr. Mcleod; Dr. Olson * CONSULTATION REPORT: DATE OF CONSULT: 04/24/18 REQUESTING PHYSICIAN: Dr. De Santiago. INDICATION: Bright red blood per rectum. NARRATIVE: Mr. Damon is a pleasant 73-year-old gentleman with a history of GERD , type 2 diabetes, hyperlipidemia, nephrolithiasis, and hypertension, who came to the emergency room yesterday. In the emergency room, he was having chest pain, was seen by Cardiology, and it was felt he should need a cardiac catheterization. He underwent a cardiac catheterization and had 2 stents placed. He was started on Brilinta. This morning, he felt the urge to have a bowel movement and had a bowel movement that contained a moderate amount of bright red blood. He denies any pain. He does have a history of pushing and straining as he is constipated. Of note, he did just have a colonoscopy in May of 2017, at which time internal hemorrhoids and diverticulosis was noted. A few benign polyps were removed. The patient again denies any abdominal pain. There have been no changes in his vital signs. His heart rate has not changed and his blood pressure has not changed at all. The stool was bright red blood. A few hours later, he had another urge, smaller bowel movements that had just slightly darker bright red or a slightly darker red stool. Nothing that was black. He did have a repeat hemoglobin and it was found to be 7.1 and he has been started on blood. We are now being consulted to manage GI bleeding. PAST MEDICAL HISTORY: Please see the HPI. MEDICATIONS: Upon admission include: 1. Albuterol. 2. Insulin. 3. Lopressor. 4. MiraLax. 5. Potassium. ALLERGIES: LEVO and PENICILLIN. FAMILY HISTORY: Coronary artery disease. SOCIAL HISTORY: He continues to smoke. REVIEW OF SYSTEMS: Twelve systems were reviewed other than that mentioned in the HPI were unremarkable. PHYSICAL EXAM: Temperature is normal, blood pressure is 152/65, pulse is 71, O2 sat is 98% on room air. General: Well-appearing elderly male, appears as his stated age. Alert, oriented, pleasant, and fluent. HEENT: Mucous membranes are moist without lesions, ulcers, or exudate. Neck is supple. Trachea is midline. Head is normocephalic, atraumatic. Heart: Regular rate and rhythm. Lungs: Clear to auscultation. Abdomen is obese, positive bowel sounds. Soft, nontender, nondistended. No hepatosplenomegaly, masses, rebound , or guarding. Skin is warm and dry. LABORATORY DATA: Of note, hemoglobin is 7.1 down from 9.5, platelets of 205, white count of 17.7. BUN is 58, creatinine is 3.05. ASSESSMENT AND PLAN: This is a 73-year-old gentleman with coronary artery disease, status post recent stents yesterday, who is now on Brilinta, who has developed gastrointestinal bleed, likely this is a lower gastrointestinal bleed given the fact that his BUN is elevated, but still nonetheless stable. His vital signs are stable. These 2 things do point somewhat against this being a brisk upper gastrointestinal bleed. He also recently just had a colonoscopy 10 months ago, which revealed moderate diverticulosis on the left side and internal hemorrhoids. Most likely, he could be experiencing a lower gastrointestinal bleed secondary to diverticulosis. Unfortunately, he is now on anticoagulation for his stents. I will talk this over with a physician office secretary. I did page Dr. Olson, who is in the middle of a procedure right now and I will discuss this with him later on today. My concern is if we continue the Brilinta , he has had increased risk for further bleeding, however often times diverticular bleeding will stop on its own. I do not think we need to jump right in and do a colonoscopy right now as he just had one 10 months ago, I am not concerned about more ominous findings, and I again do not think that this is an upper gastrointestinal bleed given the normal BUN and normal vital signs. I do need to discuss with Dr. Olson what the patient's risk for occlusion of the stent if we stop the Brilinta that may be more of a risk than any further continued bleeding from potential diverticular bleed. I will discuss this later with Dr. Olson. [id number]/[facility] #: [id number] [facility]ITAL[facility]adine
[2018-04-24 22:42] LABS: Hematocrit 29 % (42-52); Hemoglobin 9.4 g/dl (14.0-18.0)
[2018-04-25] MEDS: Albuterol/Ipratropium NEB.SOL* Albuterol 2.5 MG/Ipratropium 0.5 MG 3 ML INH PRN (00:03)
[2018-04-25] MEDS: niCARdipine 0.1MG/ML IVPREMIX* 20 MG/200 ML BAG IV SCH ×5 (00:04→20:40)
[2018-04-25] MEDS: Insulin GLARGINE(*) 1 UNITS UNIT SUBCUT SCH (01:00)
[2018-04-25] MEDS: Insulin LISPRO* 1 UNITS UNIT SUBCUT SCH ×6 (01:00→21:12)
[2018-04-25] MEDS: Ondansetron INJ* 2 MG/ML VIAL IV SCH ×6 (01:57→20:44)
[2018-04-25] MEDS: Metoprolol Tartrate TAB* 25 MG PO SCH ×2 (02:00→09:10)
[2018-04-25] MEDS ORDERED: Furosemide IV* 10 MG/ML VIAL (40 MG) IV ONE (02:58)
[2018-04-25 05:10] LABS: Hematocrit 27 % (42-52); Hemoglobin 8.9 g/dl (14.0-18.0)
[2018-04-25] MEDS: Isosorbide Mononitrate ER TAB* 30 MG PO SCH (09:10)
[2018-04-25] MEDS: Aspirin EC TAB* 81 MG TAB.EC PO SCH (09:10)
[2018-04-25] MEDS: Ticagrelor* 90 MG TAB PO SCH ×2 (09:11→20:44)
[2018-04-25] MEDS: Polyethylene Glycol 3350* 17 GM PACKET PO SCH ×2 (09:11→20:43)
[2018-04-25] MEDS ORDERED: Pantoprazole IV* 40 MG IV ONE (09:22)
--- NOTE | 2018-04-25 09:32 | PN ---
Progress Note - Progress Note Date of Service: 04/25/18 Note: Progress Note -- Critical Care 24 hour events/significant events: -in ICU, vomiting this morning, brownish material, possible coffee ground. BP stable, awake/alert. No abd pain. No further bowel movements since yesterday. s/ p 2 prbc yesterday Tele: NSR Vitals: Vital Signs Temp 97.4 F 04/25/18 08:00 Pulse 84 04/25/18 08:00 Resp 17 04/25/18 08:00 BP 129/71 04/25/18 08:00 Pulse Ox 97 04/25/18 08:00 Intake & Output 04/24/18 04/25/18 04/25/18 18:59 06:59 18:59 Intake Total 1125 1441 Output Total 300 750 Balance 825 691 Weight 71.6 kg Intake: IV Fluids 165 35 D5W NS 20 meq KCL 165 NS to Maintain IV Patency 35 Medicated IV 632 CC - Nicarpidine/Cardene 632 Oral 960 180 Packed Cells 594 Output: Urine 300 300 Emesis 450 Other: Date of Last Bowel 02/22/18 Movement Estimated Stool Amount Large O2/Vent: hiflow 100% 30lpm Infusions: cardene Medications: Acetaminophen (Tylenol Tab*) 650 mg PO Q6H PRN PRN Reason: PAIN Albuterol/Ipratropium (Duoneb (Albuterol 2.5 Mg/Ipratropium 0.5 Mg)) 1 neb INH Q4H PRN PRN Reason: SOB/WHEEZING Last Admin: 04/25/18 00:03 Dose: 1 neb Aspirin (Aspirin Ec Tab*) 81 mg PO DAILY [facility] Last Admin: 04/25/18 09:10 Dose: Not Given Atorvastatin Calcium (Lipitor*) 80 mg PO 1700 [facility] Last Admin: 04/24/18 17:14 Dose: 80 mg Insulin Human Regular (Insulin Regular Ivpb) 100 units in 100 mls @ 6.713 mls/ hr IVPB .(INITIAL RATE) [facility]; Protocol Nitroglycerin/Dextrose (Nitroglycerin Drip*) 25,000 mcg in 250 mls @ 6 mls/hr IV .PER PARAMETERS [facility]; Protocol Last Admin: 04/23/18 15:18 Dose: 3 mls/hr Nicardipine/Sodium Chloride (Cardene 0.1mg/Ml Ivpremix*) 20 mg in 200 mls @ 50 mls/hr IV .(as Initial Rate) COUNTS INCLUDE 234 BEDS AT THE [facility] Last Admin: 04/25/18 08:43 Dose: 50 mls/hr Pantoprazole Sodium 80 mg/ (Sodium Chloride) 250 mls @ 25 mls/hr IVPB Q10H COUNTS INCLUDE 234 BEDS AT THE [facility] Insulin Glargine (Lantus(*)) 10 units SUBCUT Q24H COUNTS INCLUDE 234 BEDS AT THE [facility] Last Admin: 04/25/18 01:00 Dose: 10 unit Insulin Human Lispro (Humalog*) 0 units SUBCUT Q4H COUNTS INCLUDE 234 BEDS AT THE [facility]; Protocol Last Admin: 04/25/18 09:00 Dose: 2 unit Isosorbide Mononitrate (Imdur Er Tab*) 60 mg PO DAILY COUNTS INCLUDE 234 BEDS AT THE [facility] Last Admin: 04/25/18 09:10 Dose: Not Given Metoprolol Tartrate (Lopressor Iv*) 2.5 mg IV Q6H COUNTS INCLUDE 234 BEDS AT THE [facility] Morphine Sulfate (Morphine Inj ((Syringe))*) 4 mg IV Q2H PRN PRN Reason: PAIN Last Admin: 04/24/18 20:29 Dose: 4 mg Nitroglycerin (Nitroglycerin Tab 0.4 Mg*) 0.4 mg SL Q5M PRN PRN Reason: ANGINA Ondansetron HCl (Zofran Inj*) 4 mg IV Q4H COUNTS INCLUDE 234 BEDS AT THE [facility] Last Admin: 04/25/18 04:46 Dose: 4 mg Polyethylene Glycol/Electrolytes (Miralax*) 17 gm PO BID COUNTS INCLUDE 234 BEDS AT THE [facility] Last Admin: 04/25/18 09:11 Dose: Not Given Ticagrelor (Brilinta*) 90 mg PO BID COUNTS INCLUDE 234 BEDS AT THE [facility] Last Admin: 04/25/18 09:11 Dose: Not Given Physical Exam: General: awake, alert, no distress, no diaphoresis Head: normocephalic, atraumatic HEENT: no pallor, no icterus, moist mucous membranes Neck: soft, supple, no jvd, no stridor CVS: normal rate, regular, no murmur Resp: bilateral air entry, no rhales, no wheeze, no rhonchi, no acc muscle use Abdomen: soft, NT, minimal distension, nondistended, bowel sounds present Ext: pulses+, warm, no edema Skin: intact Neuro: awake, alert, orientedx3, moving all extremities, no gross focal deficit Labs: Laboratory Results - last 24 hr 04/24/18 04/24/18 04/24/18 12:13 12:30 13:00 WBC 17.7 H RBC 2.31 L Hgb 7.1 L Hct 21 L MCV 93 MCH 31 MCHC 33 RDW 14 Plt Count 205 MPV 10.0 Neut % (Auto) 92.3 H Lymph % (Auto) 4.6 L [place] % (Auto) 3.1 Eos % (Auto) 0 Baso % (Auto) 0 Absolute Neuts (auto) 16.3 H Absolute Lymphs (auto) 0.8 L Absolute Monos (auto) 0.6 Absolute Eos (auto) 0 Absolute Basos (auto) 0 Absolute Nucleated RBC 0 Nucleated RBC % 0.1 POC Glucose (mg/dL) 243 H Blood Type O Positive Antibody Screen Negative Crossmatch See Detail Transfusion React Rpt Donor Unit # Post-Trans Blood Type Post-Trans [facility] 04/24/18 04/24/18 04/24/18 16:13 20:53 21:52 WBC RBC Hgb Hct MCV MCH MCHC RDW Plt Count MPV Neut % (Auto) Lymph % (Auto) [place] % (Auto) Eos % (Auto) Baso % (Auto) Absolute Neuts (auto) Absolute Lymphs (auto) Absolute Monos (auto) Absolute Eos (auto) Absolute Basos (auto) Absolute Nucleated RBC Nucleated RBC % POC Glucose (mg/dL) 234 H 159 H Blood Type Antibody Screen Crossmatch Transfusion React Rpt Donor Unit # [id number] Post-Trans Blood Type O Positive Post-Trans [facility] Negative 04/24/18 04/25/18 04/25/18 22:30 00:24 04:44 WBC RBC Hgb 9.4 L Hct 29 L MCV MCH MCHC RDW Plt Count MPV Neut % (Auto) Lymph % (Auto) [place] % (Auto) Eos % (Auto) Baso % (Auto) Absolute Neuts (auto) Absolute Lymphs (auto) Absolute Monos (auto) Absolute Eos (auto) Absolute Basos (auto) Absolute Nucleated RBC Nucleated RBC % POC Glucose (mg/dL) 135 H 170 H Blood Type Antibody Screen Crossmatch Transfusion React Rpt Donor Unit # Post-Trans Blood Type Post-Trans [place] 04/25/18 04/25/18 04:50 08:17 WBC RBC Hgb 8.9 L Hct 27 L MCV MCH MCHC RDW Plt Count MPV Neut % (Auto) Lymph % (Auto) [place] % (Auto) Eos % (Auto) Baso % (Auto) Absolute Neuts (auto) Absolute Lymphs (auto) Absolute Monos (auto) Absolute Eos (auto) Absolute Basos (auto) Absolute Nucleated RBC Nucleated RBC % POC Glucose (mg/dL) 153 H Blood Type Antibody Screen Crossmatch Transfusion React Rpt Donor Unit # Post-Trans Blood Type Post-Trans [facility] Imaging: LE duplex 04/24 negative dvt TTE 04/24 LVEF 40-45%, posterior wall hypokinesis cxr 04/24 pulm congestion+ Assessment: 73y M pmhx of DM, HTN, smoker, CKD3, Lymphoma; comes to ER for respiratory distress, hypoxia, suspected COPD exacerbation. Noted to have elevated troponins. Taken to lab director, noted to have severe mid/distal RCA disease, s/p PCI x2. In ICU, developed lower GI bleed, s/p 2 prbc. -Acute hypoxic respiratory failure -pulmonary congestion -acute decompensated LV systolic heart failure -NSTEMI, s/p PCI to RCA x2 -Ischemic CMP -Lower GI bleeding -acute blood loss anemia -hypertension CKD3 Plan: Neuro- stable; delirium prec. CVS- hypertensive, cont cardene, titrate to keep SBP <140. cont metoprolol to IV 2.5mg q6h. Cont asa/brillinta PO; may need integrillin if unable to take PO later today. hold IVF. monitor h/h, keep >7 Resp- hypoxic, noted pulm congestion yesterday. s/p IV lasix. CXR today. No wheezing noted. Lasix PRN. ID- afebrile. last wbc 17, pending cbc today. nontoxic appearing. cxr with congestion. blood cultures. hold abx for now. GI- NPO. vomiting, antiemetics prn. suspected Lower GI bleed. some upper brownish material. monitoring h/h. start PPI infusion. KUB today. GI consult for possible EGD/colonoscopy. NPO. insert ngt. Renal-CKD 3, monitor K and bicarb. metabolic acidosis from prior. pending BMP. no rodriguez. s/p cardiac cath 04/25 Heme- acute blood loss; s/p prbc x2; hg 8.9 this morning. check h/h q6h. plt okay, on DAPT. resume DAPT for coronary stents. Endo- fingersticks, insulin protocol Musculsk- pressure ulcer prophylaxis. oob to chair Wounds- none Nutrition- NPO DVT prophylaxis: scds GI prophylaxis: ppi Central Line: no Arterial Line: no Rodriguez Cathetor: no Disposition: ICU Code Status: full code Total Critical Care time is 30 minutes, excluding procedures/teaching Robert Helms MD [employer] C[employer] (Electronically Signed)
[2018-04-25] MEDS: Metoprolol Tartrate IV* 1 MG/ML 5 ML VIAL IV SCH ×3 (10:29→21:12)
[2018-04-25] MEDS: Pantoprazole IV* 80 MG in NS 0.9% 250 ML* 250 ML IVPB SCH ×2 (10:30→20:40)
[2018-04-25 11:41] LABS: Hematocrit 25 % (42-52); Hemoglobin 8.4 g/dl (14.0-18.0)
[2018-04-25] MEDS ORDERED: Furosemide IV* 10 MG/ML VIAL (40 MG) IV SLOW PU ONE (12:56)
[2018-04-25 13:13] LABS: EGFR Non-African American 17.5 (>60)
[2018-04-25 13:35] LABS: Mean Corpuscular HGB Conc 33 g/dl (31-36); Mean Corpuscular Hemoglobin 29 pg (27-31); Mean Corpuscular Volume 88 fL (80-94); Mean Platelet Volume 9.6 um3 (7.4-10.4); Platelet Count 199 10^3/ul (150-450); Red Blood Count 2.91 10^6/ul (4.00-5.40); Red Cell Distribution Width 17 % (10.5-15); White Blood Count 16.2 10^3/ul (3.5-10.8)
[2018-04-25 13:36] LABS: ABS Basophils 0 10^3/ul (0-0.2); ABS Eosinophils 0 10^3/ul (0-0.6); ABS Lymphocytes 0.7 10^3/ul (1.0-4.8); ABS Monocytes 0.9 10^3/ul (0-0.8); ABS Nucleated RBC 0 10^3/ul; Eosinophil % 0 % (0-6); Lymphocyte % 3.2 % (25-47); Mean Corpuscular HGB Conc 32 g/dl (31-36); Mean Corpuscular Hemoglobin 29 pg (27-31); Mean Corpuscular Volume 89 fL (80-94); Mean Platelet Volume 9.9 um3 (7.4-10.4); Nucleated Red Blood Cells % 0; Platelet Count 214 10^3/ul (150-450); Red Blood Count 3.01 10^6/ul (4.00-5.40); Red Cell Distribution Width 17 % (10.5-15); White Blood Count 20.5 10^3/ul (3.5-10.8)
--- NOTE | 2018-04-25 13:52 | RAD ---
INDICATION: Congestion. COMPARISON: April 23, 2018 TECHNIQUE: An AP portable view obtained at 1024 hours is submitted. FINDINGS: Bones/Soft Tissues: There are no acute bony findings. Cardiomediastinal: The heart is normal in size. Central pulmonary vessels and interstitium are prominent consistent with worsening vascular congestion. Lungs: Interstitial and alveolar changes most consistent with interstitial and alveolar edema. Pleura: Moderate-sized bilateral pleural effusions. Other: None IMPRESSION: INTERSTITIAL AND ALVEOLAR EDEMA WITH WORSENING.
--- NOTE | 2018-04-25 13:57 | RAD ---
INDICATION: Vomiting. GI bleed. Distention COMPARISON: None TECHNIQUE: A single view of the abdomen is submitted. FINDINGS: Bones: There are no acute bony findings. Soft tissues: The soft tissues appear normal. The psoas margins are sharp. Bowel gas pattern: There is no obstruction. There is a posterior bowel gas. Calcifications: There are no abnormal calcifications. Other: None IMPRESSION: NO ACUTE DIAGNOSTIC FINDINGS.
[2018-04-25] MEDS ORDERED: fentaNYL* 50 MCG/ML 2 ML VIAL (100 MCG VIAL) ONE (13:59)
[2018-04-25] MEDS ORDERED: Midazolam* 1 MG/ML 10 ML VIAL (10 MG) ONE (13:59)
[2018-04-25 17:56] LABS: Hematocrit 25 % (42-52); Hemoglobin 8.2 g/dl (14.0-18.0)
[2018-04-25] MEDS: Atorvastatin* 80 MG TAB PO SCH (20:44)
[2018-04-25] MEDS: Morphine INJ* 2 MG/ML 1 ML SYRINGE (TWO MG - NEW SYRINGE VERSION) IV PRN (23:12)
--- NOTE | 2018-04-25 23:21 | PRO ---
DATE: 04/25/18 - ROOM #ICU-10 REFERRING PHYSICIANS: Jignesh Mcleod; Berhane Olson.* PROCEDURE: Upper gastrointestinal endoscopy through fourth portion of duodenum. INDICATION: This 73-year-old man who came in with an acute coronary, troponins well over 50, apparently had 2 stents placed 2 days ago, had some bright red rectal bleeding yesterday, and then overnight persisting nausea and emesis that became coffee-ground and thus an NG tube was placed today. He had a colonoscopy in fall showing diverticulosis and that seemed to fit his symptoms yesterday. Today, looking in the old database, he did have upper endoscopy by Dr. Tirado, October 2008, showing severe erosive GERD and a stricture that was dilated. He was placed on omeprazole and says he continues on that. He did not list that originally with his history and physical. He originally denied any history of gastrointestinal problems or surgery or procedures and then suddenly recalled Dr. Tirado' name. He denies any use of NSAIDs and multiple trade names were used. He says he has been on disability from work for many years but says not working, the pain has faded away and he is not on any chronic pain medicines. On admission, his hemoglobin was 9.5 and dropped to 7.1, so he was transfused 2 units. He has been placed on Protonix drip late morning today. Discussion was held with Dr. Olson and Dr. Helms and the information for upper endoscopy was felt to be worth the procedural risk of moderate sedation. ENDOSCOPIST: Dr. Rajan. MEDICATIONS: Midazolam 4.5, 75 fentanyl. FINDINGS: He is a somewhat chronically ill-appearing older man, in no overt distress at this time. He has an NG placed. His lungs are clear but effort is poor. Heart sounds are regular. The abdomen is mildly rounded with positive bowel sounds, though no mechanical sounds. There is no tenderness and there is medium consistency "neither soft nor firm". There are no masses. EGD: Larynx - symmetric, limited views. Esophagus - normal mucosa in the upper and mid esophagus and then beginning at 35 to 36, there is some granular eroded change though no obvious stricture. There is no clear hiatal hernia with EG junction at 40 to 41. Stomach - bilious secretions and a couple of pills are present. There are no ulcers or erosions in the stomach. The rugal pattern appears normal. The antrum appears normal. Duodenum - the pylorus, bulb, and second through fourth portions appear normal. IMPRESSION: 1. Erosive esophagitis - moderate. 2. Otherwise normal EGD. 3. Anemia and bright red rectal bleeding - I agree a lower source is most likely the etiology of this, although his BUN has gone up to 71, total corresponding rising creatinine to 3.45. He will be continuing Brilinta. He will continue his PPI drip and then can transition to twice a day oral PPI. [id number]/[facility] #: [id number] [employer]
[2018-04-26] MEDS: Insulin LISPRO* 1 UNITS UNIT SUBCUT SCH ×6 (00:47→21:32)
[2018-04-26] MEDS: Insulin GLARGINE(*) 1 UNITS UNIT SUBCUT SCH (00:50)
[2018-04-26] MEDS: Ondansetron INJ* 2 MG/ML VIAL IV SCH ×6 (00:51→21:32)
[2018-04-26] MEDS: niCARdipine 0.1MG/ML IVPREMIX* 20 MG/200 ML BAG IV SCH ×5 (00:56→20:30)
[2018-04-26] MEDS ORDERED: Furosemide IV* 10 MG/ML VIAL (40 MG) IV ONE (03:28)
[2018-04-26] MEDS: Metoprolol Tartrate IV* 1 MG/ML 5 ML VIAL IV SCH ×4 (03:59→21:32)
[2018-04-26 05:53] LABS: Hematocrit 25 % (42-52); Hemoglobin 8.3 g/dl (14.0-18.0); Mean Corpuscular HGB Conc 33 g/dl (31-36); Mean Corpuscular Hemoglobin 29 pg (27-31); Mean Corpuscular Volume 88 fL (80-94); Platelet Count 219 10^3/ul (150-450); Red Blood Count 2.84 10^6/ul (4.00-5.40); Red Cell Distribution Width 17 % (10.5-15); White Blood Count 14.8 10^3/ul (3.5-10.8)
[2018-04-26 06:19] LABS: EGFR Non-African American 16.3 (>60)
[2018-04-26] MEDS: Pantoprazole IV* 80 MG in NS 0.9% 250 ML* 250 ML IVPB SCH (07:01)
[2018-04-26] MEDS: Ticagrelor* 90 MG TAB PO SCH (08:10)
[2018-04-26] MEDS: Polyethylene Glycol 3350* 17 GM PACKET PO SCH ×2 (08:11→21:33)
[2018-04-26] MEDS: Isosorbide Mononitrate ER TAB* 30 MG PO SCH (08:11)
[2018-04-26] MEDS: Aspirin EC TAB* 81 MG TAB.EC PO SCH (08:11)
--- NOTE | 2018-04-26 11:20 | PN ---
Progress Note - Progress Note Date of Service: 04/26/18 Note: Progress Note -- Critical Care 24 hour events/significant events: -nauseous this morning; no further blood or bleeding from below or vomitting of coffee ground -s/p EGD 04/25 - old gastritis noted and esophageal erosions only -remains on cardene -no headache/cp/sob/dizziness. no diarrhea. Tele: NSR Vitals: Vital Signs Temp 99.8 F 04/26/18 08:00 Pulse 86 04/26/18 07:00 Resp 16 04/26/18 08:00 BP 145/66 04/26/18 07:00 Pulse Ox 98 04/26/18 07:00 Intake & Output 04/25/18 04/26/18 04/26/18 18:59 06:59 18:59 Intake Total 656.8 1231 Output Total 1150 1375 Balance -493.2 -144 Weight 66.9 kg Intake: Medicated IV 356.8 1051 CC - Nicarpidine/Cardene 280 660 Protonix 76.8 391 Oral 300 180 Output: NG Tube Drainage Amount 650 Urine 500 1375 Other: Date of Last Bowel 04/25/18 Movement Estimated Stool Amount Medium O2/Vent: hiflow 100% 40lpm Infusions: cardene Medications: Acetaminophen (Tylenol Tab*) 650 mg PO Q6H PRN PRN Reason: PAIN Albuterol/Ipratropium (Duoneb (Albuterol 2.5 Mg/Ipratropium 0.5 Mg)) 1 neb INH Q4H PRN PRN Reason: SOB/WHEEZING Last Admin: 04/25/18 00:03 Dose: 1 neb Aspirin (Aspirin Ec Tab*) 81 mg PO DAILY [facility] Last Admin: 04/26/18 08:11 Dose: 81 mg Atorvastatin Calcium (Lipitor*) 80 mg PO 1700 [facility] Last Admin: 04/25/18 20:44 Dose: 80 mg Carvedilol (Coreg Tab*) 6.25 mg PO BID [facility] Clopidogrel Bisulfate (Plavix Tab*) 300 mg PO ONCE ONE Stop: 04/26/18 18:01 Clopidogrel Bisulfate (Plavix Tab*) 75 mg PO DAILY [facility] Insulin Human Regular (Insulin Regular Ivpb) 100 units in 100 mls @ 6.713 mls/ hr IVPB .(INITIAL RATE) [facility]; Protocol Nitroglycerin/Dextrose (Nitroglycerin Drip*) 25,000 mcg in 250 mls @ 6 mls/hr IV .PER PARAMETERS [facility]; Protocol Last Admin: 04/23/18 15:18 Dose: 3 mls/hr Nicardipine/Sodium Chloride (Cardene 0.1mg/Ml Ivpremix*) 20 mg in 200 mls @ 50 mls/hr IV .(as Initial Rate) [facility] Last Admin: 04/26/18 08:23 Dose: 50 mls/hr Insulin Glargine (Lantus(*)) 10 units SUBCUT Q24H [facility] Last Admin: 04/26/18 00:50 Dose: 10 unit Insulin Human Lispro (Humalog*) 0 units SUBCUT Q4H [facility]; Protocol Last Admin: 04/26/18 09:12 Dose: 2 unit Isosorbide Mononitrate (Imdur Er Tab*) 60 mg PO DAILY [facility] Last Admin: 04/26/18 08:11 Dose: 60 mg Metoprolol Tartrate (Lopressor Iv*) 2.5 mg IV Q6H [facility] Last Admin: 04/26/18 08:09 Dose: 2.5 mg Morphine Sulfate (Morphine Inj ((Syringe))*) 4 mg IV Q2H PRN PRN Reason: PAIN Last Admin: 04/25/18 23:12 Dose: 4 mg Nitroglycerin (Nitroglycerin Tab 0.4 Mg*) 0.4 mg SL Q5M PRN PRN Reason: ANGINA Ondansetron HCl (Zofran Inj*) 4 mg IV Q4H [facility] Last Admin: 04/26/18 08:07 Dose: 4 mg Pantoprazole Sodium (Protonix Iv*) 40 mg IV BID [facility] Polyethylene Glycol/Electrolytes (Miralax*) 17 gm PO BID [facility] Last Admin: 04/26/18 08:11 Dose: Not Given Prochlorperazine Edisylate (Compazine Inj*) 5 mg IV Q6H PRN PRN Reason: NAUSEA/VOMITING Physical Exam: General: awake, alert, no distress, no diaphoresis Head: normocephalic, atraumatic HEENT: no pallor, no icterus, moist mucous membranes Neck: soft, supple, no jvd, no stridor CVS: normal rate, regular, no murmur Resp: bilateral air entry, no rhales, no wheeze, no rhonchi, no acc muscle use Abdomen: soft, NT, minimal distension, nondistended, bowel sounds present Ext: pulses+, warm, no edema Skin: intact Neuro: awake, alert, orientedx3, moving all extremities, no gross focal deficit Labs: Laboratory Results - last 24 hr 04/24/18 04/25/18 04/25/18 21:52 04:50 08:50 WBC 20.5 H RBC 3.01 L Hgb Hct MCV 89 MCH 29 MCHC 32 RDW 17 H Plt Count 214 MPV 9.9 Neut % (Auto) 92.5 H Lymph % (Auto) 3.2 L [place] % (Auto) 4.2 Eos % (Auto) 0 Baso % (Auto) 0.1 Absolute Neuts (auto) 19.0 H Absolute Lymphs (auto) 0.7 L Absolute Monos (auto) 0.9 H Absolute Eos (auto) 0 Absolute Basos (auto) 0 Absolute Nucleated RBC 0 Nucleated RBC % 0 Sodium 135 Potassium 4.6 Chloride 106 Carbon Dioxide 17 L Anion Gap 12 H BUN 71 H Creatinine 3.45 H Est GFR ( Amer) 21.2 Est GFR (Non-Af Amer) 17.5 BUN/Creatinine Ratio 20.6 H Glucose 161 H POC Glucose (mg/dL) Calcium 8.5 L Total Creatine Kinase 186 CK-MB (CK-2) 21.1 H Troponin I 17.27 H* Reaction Interpretation 04/25/18 04/25/18 04/25/18 11:20 12:19 16:53 WBC 16.2 H RBC 2.91 L Hgb 8.4 L Hct 25 L MCV 88 MCH 29 MCHC 33 RDW 17 H Plt Count 199 MPV 9.6 Neut % (Auto) Lymph % (Auto) [place] % (Auto) Eos % (Auto) Baso % (Auto) Absolute Neuts (auto) Absolute Lymphs (auto) Absolute Monos (auto) Absolute Eos (auto) Absolute Basos (auto) Absolute Nucleated RBC Nucleated RBC % Sodium Potassium Chloride Carbon Dioxide Anion Gap BUN Creatinine Est GFR ( Amer) Est GFR (Non-Af Amer) BUN/Creatinine Ratio Glucose POC Glucose (mg/dL) 141 H 131 H Calcium Total Creatine Kinase CK-MB (CK-2) Troponin I Reaction Interpretation 04/25/18 04/25/18 04/26/18 17:50 20:49 00:46 WBC RBC Hgb 8.2 L Hct 25 L MCV MCH MCHC RDW Plt Count MPV Neut % (Auto) Lymph % (Auto) [place] % (Auto) Eos % (Auto) Baso % (Auto) Absolute Neuts (auto) Absolute Lymphs (auto) Absolute Monos (auto) Absolute Eos (auto) Absolute Basos (auto) Absolute Nucleated RBC Nucleated RBC % Sodium Potassium Chloride Carbon Dioxide Anion Gap BUN Creatinine Est GFR ( Amer) Est GFR (Non-Af Amer) BUN/Creatinine Ratio Glucose POC Glucose (mg/dL) 234 H 95 Calcium Total Creatine Kinase CK-MB (CK-2) Troponin I Reaction Interpretation 04/26/18 04/26/18 04/26/18 04:42 05:40 05:40 WBC 14.8 H RBC 2.84 L Hgb 8.3 L Hct 25 L MCV 88 MCH 29 MCHC 33 RDW 17 H Plt Count 219 MPV 9.0 Neut % (Auto) Lymph % (Auto) [place] % (Auto) Eos % (Auto) Baso % (Auto) Absolute Neuts (auto) Absolute Lymphs (auto) Absolute Monos (auto) Absolute Eos (auto) Absolute Basos (auto) Absolute Nucleated RBC Nucleated RBC % Sodium 139 Potassium 4.0 Chloride 108 Carbon Dioxide 21 L Anion Gap 10 BUN 70 H Creatinine 3.66 H Est GFR ( Amer) 19.8 Est GFR (Non-Af Amer) 16.3 BUN/Creatinine Ratio 19.1 Glucose 131 H POC Glucose (mg/dL) 133 H Calcium 8.3 L Total Creatine Kinase CK-MB (CK-2) Troponin I Reaction Interpretation 04/26/18 07:47 WBC RBC Hgb Hct MCV MCH MCHC RDW Plt Count MPV Neut % (Auto) Lymph % (Auto) [place] % (Auto) Eos % (Auto) Baso % (Auto) Absolute Neuts (auto) Absolute Lymphs (auto) Absolute Monos (auto) Absolute Eos (auto) Absolute Basos (auto) Absolute Nucleated RBC Nucleated RBC % Sodium Potassium Chloride Carbon Dioxide Anion Gap BUN Creatinine Est GFR ( Amer) Est GFR (Non-Af Amer) BUN/Creatinine Ratio Glucose POC Glucose (mg/dL) 154 H Calcium Total Creatine Kinase CK-MB (CK-2) Troponin I Reaction Interpretation Imaging: LE duplex 04/24 negative dvt TTE 04/24 LVEF 40-45%, posterior wall hypokinesis cxr 04/24 pulm congestion+ Assessment: 73y M pmhx of DM, HTN, smoker, CKD3, Lymphoma; comes to ER for respiratory distress, hypoxia, suspected COPD exacerbation. Noted to have elevated troponins. Taken to bolt labeler, noted to have severe mid/distal RCA disease, s/p PCI x2. In ICU, developed lower GI bleed, s/p 2 prbc. -Acute hypoxic respiratory failure -pulmonary congestion -acute decompensated LV systolic heart failure -NSTEMI, s/p PCI to RCA x2 -Ischemic CMP -Lower GI bleeding -acute blood loss anemia -hypertension -KATIE on CKD3 Plan: Neuro- stable; delirium prec. CVS- hypertensive, cont cardene, titrate to keep SBP <140. start coreg 6.25 bid today. metoprolol to IV 2.5mg q6h. start to wean cardene and PO meds started. Possible n/v from brillinta? discussed with cardgiology, change to plavix 300mg load and 75mg daily. cont statin/asa. monitor h/h Resp- on hiflow, discussed with resp, wean down. no resp distress. diuresed. s/ p IV lasix. No wheezing noted. Lasix PRN. ID- afebrile. wbc 15. nontoxic appearing. cxr with congestion. blood cultures neg so far. monitoring off abx. GI- clear liquid diet, but has vomitting. zofran prn, added compazine also. change PPi to IV bid. No further bleeding noted. hg stable. s/p EGD 04/25 with old gastritis only. Renal- KATIE on CKD 3, K okay, bicarb okay. Cr up, s/p IV lasix. hold lasix today. some loss form vomitting also. no rodriguez. s/p cardiac cath 04/25 Heme- acute blood loss; s/p prbc x2; hg 8.3 this morning. h/h daily. plt okay, on DAPT for coronary stents. Endo- fingersticks, insulin protocol Musculsk- pressure ulcer prophylaxis. oob to chair Wounds- none Nutrition- clear liquid diet DVT prophylaxis: scds GI prophylaxis: ppi Central Line: no Arterial Line: no Rodriguez Cathetor: no Disposition: ICU Code Status: full code Robert Helms MD [employer] Building [employer] (Electronically Signed)
[2018-04-26] MEDS: Pantoprazole IV* 40 MG IV SCH ×2 (12:28→21:33)
[2018-04-26] MEDS: PROCHLORPERAZINE INJ 5 MG/ML 2 ML VIAL IV PRN ×2 (12:50→20:30)
[2018-04-26] MEDS: Atorvastatin* 80 MG TAB PO SCH (16:39)
[2018-04-26] MEDS ORDERED: Clopidogrel TAB* 300 MG PO ONE (18:00)
[2018-04-26] MEDS: Carvedilol TAB* 6.25 MG PO SCH (21:32)
[2018-04-26] MEDS ORDERED: LORazepam INJ* 2 MG/ML 1 ML VIAL IV PUSH ONE (22:22)
[2018-04-26] MEDS ORDERED: Calcium Carbonate CHEW TAB* 500 MG (TUMS) PO PRN (23:15)
[2018-04-26] MEDS ORDERED: Calcium Carbonate CHEW TAB* 500 MG (TUMS) ONE (23:19)
[2018-04-27] MEDS: Ondansetron INJ* 2 MG/ML VIAL IV SCH ×6 (01:02→20:01)
[2018-04-27] MEDS: Insulin GLARGINE(*) 1 UNITS UNIT SUBCUT SCH (01:27)
[2018-04-27] MEDS: Insulin LISPRO* 1 UNITS UNIT SUBCUT SCH ×6 (01:28→20:43)
[2018-04-27] MEDS: PROCHLORPERAZINE INJ 5 MG/ML 2 ML VIAL IV PRN (02:28)
[2018-04-27] MEDS ORDERED: Al Hydrox/Mg Hydrox/Simet LIQ* 30 ML UDC PO PRN (02:39)
[2018-04-27] MEDS: Albuterol/Ipratropium NEB.SOL* Albuterol 2.5 MG/Ipratropium 0.5 MG 3 ML INH PRN (02:53)
[2018-04-27 03:35] LABS: Hematocrit 23 % (42-52); Hemoglobin 7.4 g/dl (14.0-18.0); Mean Corpuscular HGB Conc 33 g/dl (31-36); Mean Corpuscular Hemoglobin 29 pg (27-31); Mean Corpuscular Volume 89 fL (80-94); Mean Platelet Volume 8.9 um3 (7.4-10.4); Platelet Count 198 10^3/ul (150-450); Red Blood Count 2.54 10^6/ul (4.00-5.40); Red Cell Distribution Width 16 % (10.5-15); White Blood Count 13.1 10^3/ul (3.5-10.8)
[2018-04-27] MEDS ORDERED: ALPRAZolam TAB* 0.25 MG PO ONE (03:44)
[2018-04-27] MEDS: Metoprolol Tartrate IV* 1 MG/ML 5 ML VIAL IV SCH ×4 (04:11→22:24)
[2018-04-27 05:17] LABS: EGFR Non-African American 13.6 (>60)
--- NOTE | 2018-04-27 07:43 | RAD ---
INDICATION: Nausea and vomiting COMPARISON: Chest x-ray April 25, 2018 TECHNIQUE: A single view of the abdomen is submitted. FINDINGS: Bones: There are no acute bony findings. Soft tissues: The soft tissues appear normal. The psoas margins are sharp. Bowel gas pattern: There is a paucity of bowel gas Calcifications: There are no abnormal calcifications. Other: There are bilateral pleural effusions right greater than left. These effusions are smaller IMPRESSION: NO ACUTE DIAGNOSTIC FINDINGS.
[2018-04-27] MEDS: Carvedilol TAB* 6.25 MG PO SCH ×2 (09:03→20:06)
[2018-04-27] MEDS: Clopidogrel TAB* 75 MG PO SCH (09:03)
[2018-04-27] MEDS: Aspirin EC TAB* 81 MG TAB.EC PO SCH (09:03)
[2018-04-27] MEDS: Polyethylene Glycol 3350* 17 GM PACKET PO SCH ×2 (09:07→21:06)
[2018-04-27] MEDS: Pantoprazole IV* 40 MG IV SCH (09:07)
--- NOTE | 2018-04-27 09:14 | PN ---
Progress Note - Progress Note Date of Service: 04/27/18 Note: Progress Note -- Critical Care 24 hour events/significant events: -less nausea overnight, no vomitting; bowel movement+ -off cardene now -no cp; mild sob -afebrile Tele: NSR Vitals: Vital Signs Temp 97.9 F 04/27/18 08:00 Pulse 75 04/27/18 06:00 Resp 19 04/27/18 06:00 BP 111/42 04/27/18 06:00 Pulse Ox 89 04/27/18 06:00 Intake & Output 04/26/18 04/27/18 04/27/18 18:59 06:59 18:59 Intake Total 618 499 Output Total 400 240 Balance 218 259 Weight 72.2 kg Intake: Medicated IV 618 409 CC - Nicarpidine/Cardene 452 409 Protonix 166 Oral 90 Output: Urine 400 240 Other: # Bowel Movements 1 Estimated Stool Amount Small Small O2/Vent: NC 15L Infusions: heplock Medications: Acetaminophen (Tylenol Tab*) 650 mg PO Q6H PRN PRN Reason: PAIN Al Hydrox/Mg Hydrox/Simethicone (Maalox Plus*) 30 ml PO ONCE PRN PRN Reason: INDIGESTION Last Admin: 04/27/18 04:11 Dose: 30 ml Albuterol/Ipratropium (Duoneb (Albuterol 2.5 Mg/Ipratropium 0.5 Mg)) 1 neb INH Q4H PRN PRN Reason: SOB/WHEEZING Last Admin: 04/27/18 02:53 Dose: 1 neb Aspirin (Aspirin Ec Tab*) 81 mg PO DAILY [facility] Last Admin: 04/27/18 09:03 Dose: 81 mg Calcium Carbonate (Tums*) 500 mg PO Q4H PRN PRN Reason: INDIGESTION Carvedilol (Coreg Tab*) 6.25 mg PO BID [facility] Last Admin: 04/27/18 09:03 Dose: 6.25 mg Clopidogrel Bisulfate (Plavix Tab*) 75 mg PO DAILY [facility] Last Admin: 04/27/18 09:03 Dose: 75 mg Insulin Human Regular (Insulin Regular Ivpb) 100 units in 100 mls @ 6.713 mls/ hr IVPB .(INITIAL RATE) [facility]; Protocol Nitroglycerin/Dextrose (Nitroglycerin Drip*) 25,000 mcg in 250 mls @ 6 mls/hr IV .PER PARAMETERS [facility]; Protocol Last Admin: 04/23/18 15:18 Dose: 3 mls/hr Nicardipine/Sodium Chloride (Cardene 0.1mg/Ml Ivpremix*) 20 mg in 200 mls @ 50 mls/hr IV .(as Initial Rate) [facility] Last Admin: 04/26/18 20:30 Dose: 50 mls/hr Insulin Glargine (Lantus(*)) 10 units SUBCUT Q24H [facility] Last Admin: 04/27/18 01:27 Dose: 10 unit Insulin Human Lispro (Humalog*) 0 units SUBCUT Q4H [facility]; Protocol Last Admin: 04/27/18 09:04 Dose: 2 unit Metoprolol Tartrate (Lopressor Iv*) 2.5 mg IV Q6H [facility] Last Admin: 04/27/18 09:07 Dose: 2.5 mg Morphine Sulfate (Morphine Inj ((Syringe))*) 4 mg IV Q2H PRN PRN Reason: PAIN Last Admin: 04/25/18 23:12 Dose: 4 mg Nitroglycerin (Nitroglycerin Tab 0.4 Mg*) 0.4 mg SL Q5M PRN PRN Reason: ANGINA Ondansetron HCl (Zofran Inj*) 4 mg IV Q4H [facility] Last Admin: 04/27/18 09:04 Dose: 4 mg Pantoprazole Sodium (Protonix Iv*) 40 mg IV BID [facility] Last Admin: 04/27/18 09:07 Dose: 40 mg Polyethylene Glycol/Electrolytes (Miralax*) 17 gm PO BID [facility] Last Admin: 04/27/18 09:07 Dose: Not Given Prochlorperazine Edisylate (Compazine Inj*) 5 mg IV Q6H PRN PRN Reason: NAUSEA/VOMITING Last Admin: 04/27/18 02:28 Dose: 5 mg Physical Exam: General: awake, alert, no distress, no diaphoresis Head: normocephalic, atraumatic HEENT: no pallor, no icterus, moist mucous membranes Neck: soft, supple, no jvd, no stridor CVS: normal rate, regular, no murmur Resp: bilateral air entry, no rhales, no wheeze, no rhonchi, no acc muscle use Abdomen: soft, NT, nondistended, bowel sounds present Ext: pulses+, warm, no edema Skin: intact Neuro: awake, alert, orientedx3, moving all extremities, no gross focal deficit Labs: Laboratory Results - last 24 hr 04/26/18 04/26/18 04/26/18 07:47 12:38 16:39 WBC RBC Hgb Hct MCV MCH MCHC RDW Plt Count MPV Sodium Potassium Chloride Carbon Dioxide Anion Gap BUN Creatinine Est GFR ( Amer) Est GFR (Non-Af Amer) BUN/Creatinine Ratio Glucose POC Glucose (mg/dL) 154 H 104 H 192 H Calcium Total Bilirubin AST ALT Alkaline Phosphatase Troponin I Total Protein Albumin Globulin Albumin/Globulin Ratio 04/26/18 04/26/18 04/27/18 21:15 22:41 01:16 WBC RBC Hgb Hct MCV MCH MCHC RDW Plt Count MPV Sodium Potassium Chloride Carbon Dioxide Anion Gap BUN Creatinine Est GFR ( Amer) Est GFR (Non-Af Amer) BUN/Creatinine Ratio Glucose POC Glucose (mg/dL) 233 H 182 H Calcium Total Bilirubin AST ALT Alkaline Phosphatase Troponin I 8.97 H* Total Protein Albumin Globulin Albumin/Globulin Ratio 04/27/18 04/27/18 04/27/18 03:10 03:10 04:15 WBC 13.1 H RBC 2.54 L Hgb 7.4 L Hct 23 L MCV 89 MCH 29 MCHC 33 RDW 16 H Plt Count 198 MPV 8.9 Sodium 134 L Potassium 4.5 Chloride 103 Carbon Dioxide 19 L Anion Gap 12 H BUN 78 H Creatinine 4.29 H Est GFR ( Amer) 16.5 Est GFR (Non-Af Amer) 13.6 BUN/Creatinine Ratio 18.2 Glucose 118 H POC Glucose (mg/dL) 113 H Calcium 8.0 L Total Bilirubin 0.60 AST 27 ALT 21 Alkaline Phosphatase 62 Troponin I 8.68 H* Total Protein 6.0 L Albumin 3.4 Globulin 2.6 Albumin/Globulin Ratio 1.3 Imaging: LE duplex 04/24 negative dvt TTE 04/24 LVEF 40-45%, posterior wall hypokinesis cxr 04/24 pulm congestion+ Assessment: 73y M pmhx of DM, HTN, smoker, CKD3, Lymphoma; comes to ER for respiratory distress, hypoxia, suspected COPD exacerbation. Noted to have elevated troponins. 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 In ICU, developed lower GI bleed, s/p 2 prbc. -Acute hypoxic respiratory failure -pulmonary congestion -acute decompensated LV systolic heart failure -NSTEMI, s/p PCI to RCA x2 -Ischemic CMP -Lower GI bleeding -acute blood loss anemia -hypertension -KATIE on CKD3 -Bronchospasm Plan: Neuro- stable; delirium prec. CVS- off cardene; cont coreg 6.25mg bid; add norvasc 5mg daily. hold acei/arb due to CKD. keep SBP <140. cont asa/plavix for CAD. Statin held for now. drop in h/h, will need 2 prbc. Resp- on NC 15 L now; unclear why. CXR now, add on BNP. hold lasix for now. no cough, no sputum; mild wheezing+. add steroids, bronchodilators q4h. ID- afebrile. wbc 13, decreasing. nontoxic appearing. CXR today. blood cultures neg so far. monitoring off abx. GI- -clear liquid diet, tolerating some. nausea/vom decreased now. no bleeding noted further so far from lower. zofran/compazine prn. PPI PO bid. Drop in h/h noted; not on AC. transfuse 2 prbc. Have to consider lower EGD now, will discuss with GI. -s/p EGD 04/25 with old gastritis only. Renal- KATIE on CKD 3; Cr still rising. K 4.5, mild metabolic acidosis. mulitfactorial etiology of KATIE - GI bleed, GI loss from vomitting, CHF exacc, NSTEMI requiring cath and some degree of DANIEL developing; no evidence of shock. no karl/arbs. Renal consult. hold lasix for now, pending cxr, prn after PRBC. Heme- acute blood loss; h/h 7.4, hypoxia. transfuse 2 prbc. GI losses still? plt okay, on DAPT for coronary stents. Endo- fingersticks, insulin protocol Musculsk- pressure ulcer prophylaxis. oob to chair Wounds- none Nutrition- clear liquid diet DVT prophylaxis: scds GI prophylaxis: ppi Central Line: no Arterial Line: no Daily Cathetor: no Disposition: ICU Code Status: full code Total critical care time 35 min, not including procedures/teaching Robert Helms MD Safe Deposit Clerk (Electronically Signed)
[2018-04-27] MEDS ORDERED: methylPREDNISolone 125 MG* 2 ML VIAL IV ONE (09:33)
--- NOTE | 2018-04-27 09:44 | RAD ---
INDICATION: Hypoxia COMPARISON: Most recent comparison chest x-rays dated April 25, 2018 TECHNIQUE: Single AP portable view of the chest was obtained. FINDINGS: Image quality is compromised due to the relative inferiority of a portable chest x-ray. Similar the prior chest x-ray there is mild cardiomegaly. There are densities of securing the bilateral lung bases causing bilateral costophrenic angle blunting. The pulmonary vasculature is engorged and indistinct. Visualized bones are normal for the patient's age. IMPRESSION: Chest x-ray findings are consistent with cardiogenic pulmonary edema similar in appearance to the most recent chest x-ray. Densities at the bilateral lung bases could be pleural effusion with or without compressive atelectasis. Overall the degree of aeration is slightly improved when compared to the eighth 2017 chest x-ray.
[2018-04-27] MEDS: Albuterol/Ipratropium NEB.SOL* Albuterol 2.5 MG/Ipratropium 0.5 MG 3 ML INH SCH ×4 (11:17→23:24)
--- NOTE | 2018-04-27 11:57 | CONS ---
CC: Dr. Monika Crooks, [facility] in [place]; Dr. Jignesh Mcleod * NEPHROLOGY CONSULTATION: DATE OF CONSULT: HISTORY OF PRESENT ILLNESS: Mr. Damon is a 73-year-old gentleman with a history of chronic renal insufficiency secondary to diabetes mellitus and hypertension. He presented because of chest tightness and shortness of breath and was found to have coronary artery disease, had a cardiac catheterization and received 2 stents. It is noted that his serum creatinine has been rising since then. His course has also been complicated by gastrointestinal bleed, probably secondary to gastritis, but he also has a history of bright red blood per rectum and a known history of diverticulitis. He is presently feeling somewhat better, but he is tired. He does have some anorexia. He has some orthopnea. PAST MEDICAL HISTORY: Significant for stage 3 chronic kidney disease, hyperlipidemia, gastroesophageal reflux disease. He has a history of lymphoma and he has history of nephrolithiasis as well as previously noted diabetes mellitus type 2. MEDICATIONS: At the time of admission included: 1. Albuterol nebulizer. 2. Insulin. 3. Lopressor 25 mg b.i.d. 4. Nitroglycerin drip. 5. MiraLax. 6. He has received some supplemental potassium. ALLERGIES: He is allergic to LEVOFLOXACIN and PENICILLIN. FAMILY HISTORY: Significant for his father had heart attack age 64. SOCIAL HISTORY: He smokes approximately a pack and half cigarettes per day. REVIEW OF SYSTEMS: No visual disturbances, no hearing problems. He has a history of constipation. He has nocturia typically 3 times per night. He has no pedal edema. No arthropathies. PHYSICAL EXAM: He is a well-developed, obviously fatigued gentleman. He is afebrile. Blood pressure is 132/51 with a pulse of 71, respirations 24. He is anicteric. His extraocular muscles are intact. Mucous membranes are moist. The chest revealed some wheezing, but I heard no rales. The heart revealed regular rhythm. I could not hear any murmurs. The abdomen is soft and nontender. Bowel sounds are positive. He has trace pedal edema. LABORATORY DATA: Review of his laboratory studies reveals a white count of 13.1 , hemoglobin of 7.4, he had been up to 9.4 on 04/24/18 after transfusion, platelet of 198,000. Sodium 134, potassium 4.5, total CO2 of 19, chloride 103, BUN 78, creatinine of 4.29 up from a baseline of 2.6 in 2016. Calcium 8 with an albumin of 3.4. Urine analysis reveals 2+ protein, 3+ blood, some hyaline and granular casts. IMPRESSION: Acute on chronic renal insufficiency. This is likely multifactorial and that he did have non-ST segment elevation myocardial infarction. He did have a dye load. His ejection fraction is suppressed to 45% . At the present time, we do not need to proceed on with dialysis, obviously nephrotoxin should be avoided. I would probably buffer his acidosis with Bicitra 15 cc t.i.d. I have discussed the case with Dr. Helms and Dr. Olson. [id number]/[facility] #: [id number] MANGO
[2018-04-27] MEDS ORDERED: Piperacillin/Tazobac ADVAN(*) 3.375 GM in NS 0.9% 100 ML* 100 ML IVPB SCH (12:00)
[2018-04-27] MEDS: cefTRIAXone(*) 1 GM in NS 0.9% 50 ML* 50 ML IVPB SCH (12:36)
[2018-04-27] MEDS: metroNIDAZOLE IV 500 MG/100ML* 500 MG/100 ML BAG IVPB SCH (13:32)
[2018-04-27] MEDS: Morphine INJ* 2 MG/ML 1 ML SYRINGE (TWO MG - NEW SYRINGE VERSION) IV PRN (14:05)
[2018-04-27] MEDS: methylPREDNISolone SOD 40 MG* 1 ML VIAL IV SCH (20:01)
[2018-04-27] MEDS: CMC:Pantoprazole TAB (NF) 40 MG TAB PO SCH (20:44)
[2018-04-27] MEDS ORDERED: amLODIPine TAB* 5 MG PO ONE (21:00)
[2018-04-27] MEDS ORDERED: Atorvastatin* 80 MG TAB PO ONE (21:00)
[2018-04-27] MEDS ORDERED: Furosemide IV* 10 MG/ML 2 ML VIAL (20 MG) IV SLOW PU ONE (22:39)
[2018-04-28] MEDS: Albuterol 2.5 MG/3 ML NEB.SOL* (0.083%) INH SCH ×2 (01:02→01:14)
[2018-04-28] MEDS: Insulin LISPRO* 1 UNITS UNIT SUBCUT SCH ×6 (01:18→20:01)
[2018-04-28] MEDS: Insulin GLARGINE(*) 1 UNITS UNIT SUBCUT SCH (01:18)
[2018-04-28] MEDS: metroNIDAZOLE IV 500 MG/100ML* 500 MG/100 ML BAG IVPB SCH ×2 (01:18→13:57)
[2018-04-28] MEDS: Albuterol/Ipratropium NEB.SOL* Albuterol 2.5 MG/Ipratropium 0.5 MG 3 ML INH SCH ×8 (01:58→07:53)
[2018-04-28] MEDS ORDERED: Albuterol 2.5 MG/3 ML NEB.SOL* (0.083%) INH ONE (01:59)
[2018-04-28] MEDS: Ondansetron INJ* 2 MG/ML VIAL IV SCH ×6 (03:21→21:05)
[2018-04-28] MEDS: Morphine INJ* 2 MG/ML 1 ML SYRINGE (TWO MG - NEW SYRINGE VERSION) IV PRN (03:26)
[2018-04-28] MEDS: Metoprolol Tartrate IV* 1 MG/ML 5 ML VIAL IV SCH (03:55)
[2018-04-28] MEDS ORDERED: LORazepam INJ* 2 MG/ML 1 ML VIAL IV PUSH ONE (04:19)
[2018-04-28] MEDS ORDERED: LORazepam INJ* 2 MG/ML 1 ML VIAL ONE (04:22)
[2018-04-28 05:58] LABS: Hematocrit 34 % (42-52); Hemoglobin 11.3 g/dl (14.0-18.0); Mean Corpuscular HGB Conc 34 g/dl (31-36); Mean Corpuscular Hemoglobin 29 pg (27-31); Mean Corpuscular Volume 87 fL (80-94); Mean Platelet Volume 9.3 um3 (7.4-10.4); Platelet Count 211 10^3/ul (150-450); Red Blood Count 3.89 10^6/ul (4.00-5.40); Red Cell Distribution Width 16 % (10.5-15); White Blood Count 8.2 10^3/ul (3.5-10.8)
[2018-04-28 06:13] LABS: EGFR Non-African American 12.8 (>60)
[2018-04-28] MEDS: Carvedilol TAB* 6.25 MG PO SCH ×4 (08:32→21:09)
[2018-04-28] MEDS: amLODIPine TAB* 5 MG PO SCH ×3 (08:32→11:55)
[2018-04-28] MEDS: Aspirin EC TAB* 81 MG TAB.EC PO SCH ×2 (08:32→11:55)
[2018-04-28] MEDS: Clopidogrel TAB* 75 MG PO SCH ×2 (08:32→11:55)
--- NOTE | 2018-04-28 08:32 | RAD ---
INDICATION: Short of breath COMPARISON: April 27, 2018 TECHNIQUE: An AP portable view obtained at 0813 hours is submitted. FINDINGS: Bones/Soft Tissues: There are no acute bony findings. Cardiomediastinal: The heart is normal in size. The central pulmonary vessels and interstitium are prominent with mild worsening consistent with worsening vascular congestion. Lungs: Interstitial and alveolar edema. Given these diffuse changes, coexistent infiltrates are not excluded radiographically. Pleura: Small bilateral pleural effusions. Other: None IMPRESSION: INTERSTITIAL AND ALVEOLAR EDEMA WITH MILD INTERVAL WORSENING
[2018-04-28] MEDS: CMC:Pantoprazole TAB (NF) 40 MG TAB PO SCH ×3 (08:33→19:45)
[2018-04-28] MEDS ORDERED: Furosemide IV* 10 MG/ML 10 ML VIAL (100 MG) IV ONE (08:45)
[2018-04-28] MEDS ORDERED: Albuterol/Ipratropium NEB.SOL* Albuterol 2.5 MG/Ipratropium 0.5 MG 3 ML INH SCH ×2 (09:00→11:00)
[2018-04-28] MEDS: methylPREDNISolone SOD 40 MG* 1 ML VIAL IV SCH (09:17)
[2018-04-28] MEDS ORDERED: Haloperidol INJ IV/IM* 5 MG/ML AMP IV SLOW PU PRN (09:20)
[2018-04-28] MEDS ORDERED: LORazepam INJ* 2 MG/ML 1 ML VIAL IV PUSH PRN (09:21)
[2018-04-28] MEDS ORDERED: Haloperidol INJ IV/IM* 5 MG/ML AMP ONE (09:24)
--- NOTE | 2018-04-28 09:26 | PN ---
Progress Note - Progress Note Date of Service: 04/28/18 Note: Progress Note -- Critical Care 24 hour events/significant events: -hypoxic overnight, increased secretions, started on NIV; restless this morning ; on NIV, mild tachypnea but no acc muscles, follows commands, awake -echo being done -hypertensive+, mild tachycardia -rodriguez placed, making urine -given lasix 60mg iv last night -afebrile Tele: Nsr, some tachycardia Vitals: O2/Vent: NIV 08/03 100% Infusions: - Medications: Acetaminophen (Tylenol Tab*) 650 mg PO Q6H PRN PRN Reason: PAIN Al Hydrox/Mg Hydrox/Simethicone (Maalox Plus*) 30 ml PO ONCE PRN PRN Reason: INDIGESTION Last Admin: 04/27/18 04:11 Dose: 30 ml Albuterol/Ipratropium (Duoneb (Albuterol 2.5 Mg/Ipratropium 0.5 Mg)) 1 neb INH Q4H [facility] Amlodipine Besylate (Norvasc Tab*) 5 mg PO DAILY [facility] Aspirin (Aspirin Ec Tab*) 81 mg PO DAILY [facility] Last Admin: 04/27/18 09:03 Dose: 81 mg Calcium Carbonate (Tums*) 500 mg PO Q4H PRN PRN Reason: INDIGESTION Carvedilol (Coreg Tab*) 6.25 mg PO BID [facility] Last Admin: 04/27/18 20:06 Dose: 6.25 mg Clopidogrel Bisulfate (Plavix Tab*) 75 mg PO DAILY [facility] Last Admin: 04/27/18 09:03 Dose: 75 mg Furosemide (Lasix Iv*) 60 mg IV Q8H [facility] Haloperidol Lactate (Haldol Inj Iv/Im*) 5 mg IV SLOW PU Q4H PRN PRN Reason: AGITATION Haloperidol Lactate (Haldol Inj Iv/Im*) 2.5 mg IV SLOW PU ONCE LETICIA Insulin Human Regular (Insulin Regular Ivpb) 100 units in 100 mls @ 6.713 mls/ hr IVPB .(INITIAL RATE) [facility]; Protocol Nitroglycerin/Dextrose (Nitroglycerin Drip*) 25,000 mcg in 250 mls @ 6 mls/hr IV .PER PARAMETERS [facility]; Protocol Last Admin: 04/23/18 15:18 Dose: 3 mls/hr Nicardipine/Sodium Chloride (Cardene 0.1mg/Ml Ivpremix*) 20 mg in 200 mls @ 50 mls/hr IV .(as Initial Rate) [facility] Last Admin: 04/26/18 20:30 Dose: 50 mls/hr Metronidazole/Sodium Chloride (Flagyl 500 Mg Ivpb*) 500 mg in 100 mls @ 100 mls /hr IVPB Q12H [facility] Last Admin: 04/28/18 01:18 Dose: 100 mls/hr Ceftriaxone Sodium 1 gm/ (Sodium Chloride) 50 mls @ 200 mls/hr IVPB Q24H [facility] Last Admin: 04/27/18 12:36 Dose: 200 mls/hr Insulin Glargine (Lantus(*)) 10 units SUBCUT Q24H [facility] Last Admin: 04/28/18 01:18 Dose: 10 unit Insulin Human Lispro (Humalog*) 0 units SUBCUT Q4H [facility]; Protocol Last Admin: 04/28/18 09:21 Dose: 1 unit Lorazepam (Ativan Inj*) 1 mg IV PUSH Q4H PRN PRN Reason: ANXIETY Methylprednisolone Sodium Succinate (Solu-Medrol 40 Mg) 40 mg IV Q12H [facility] Last Admin: 04/28/18 09:17 Dose: 40 mg Metoprolol Tartrate (Lopressor Iv*) 2.5 mg IV Q6H [facility] Last Admin: 04/28/18 03:55 Dose: 2.5 mg Morphine Sulfate (Morphine Inj ((Syringe))*) 4 mg IV Q2H PRN PRN Reason: PAIN Last Admin: 04/28/18 03:26 Dose: 4 mg Nitroglycerin (Nitroglycerin Tab 0.4 Mg*) 0.4 mg SL Q5M PRN PRN Reason: ANGINA Ondansetron HCl (Zofran Inj*) 4 mg IV Q4H [facility] Last Admin: 04/28/18 05:22 Dose: Not Given Pantoprazole Sodium (Protonix Tab (Nf)) 40 mg PO BID [facility] Last Admin: 04/27/18 20:44 Dose: 40 mg Polyethylene Glycol/Electrolytes (Miralax*) 17 gm PO BID [facility] Last Admin: 04/27/18 21:06 Dose: Not Given Prochlorperazine Edisylate (Compazine Inj*) 5 mg IV Q6H PRN PRN Reason: NAUSEA/VOMITING Last Admin: 04/27/18 02:28 Dose: 5 mg Physical Exam: General: awake, alert, mild resp distress, no diaphoresis Head: normocephalic, atraumatic HEENT: no pallor, no icterus, moist mucous membranes Neck: soft, supple, no jvd, no stridor CVS: tachy, regular, no murmur Resp: bilateral air entry, +rhales, no wheeze, +rhonchi, no acc muscle use Abdomen: soft, NT, nondistended, bowel sounds present Ext: pulses+, warm, no edema Skin: intact Neuro: awake, alert, orientedx3, moving all extremities, no gross focal deficit Labs: Laboratory Results - last 24 hr 04/24/18 04/27/18 04/27/18 12:30 03:10 03:10 WBC RBC Hgb Hct MCV MCH MCHC RDW Plt Count MPV Patient Temperature ABG pH ABG pH (Temp Correct) ABG pCO2 ABG pCO2 (Temp Corrct ABG pO2 ABG pO2 (Temp Correct ABG HCO3 ABG O2 Saturation ABG Base Excess Respiration Rate O2 Delivery Device Ventilator Type Vent Mode FiO2 Inspiratory Time PEEP Pressure Support Pressure Control EPAP IPAP BiPAP Sodium 134 L Potassium 4.5 Chloride 103 Carbon Dioxide 19 L Anion Gap 12 H BUN 78 H Creatinine 4.29 H Est GFR ( Amer) 16.5 Est GFR (Non-Af Amer) 13.6 BUN/Creatinine Ratio 18.2 Glucose 118 H POC Glucose (mg/dL) Calcium 8.0 L Total Bilirubin 0.60 AST 27 ALT 21 Alkaline Phosphatase 62 Troponin I 8.68 H* B-Natriuretic Peptide 1794 H Total Protein 6.0 L Albumin 3.4 Globulin 2.6 Albumin/Globulin Ratio 1.3 Amylase 31 Lipase 14 Blood Type Antibody Screen Crossmatch See Detail 04/27/18 04/27/18 04/27/18 03:10 08:53 12:48 WBC RBC Hgb Hct MCV MCH MCHC RDW Plt Count MPV Patient Temperature ABG pH ABG pH (Temp Correct) ABG pCO2 ABG pCO2 (Temp Corrct ABG pO2 ABG pO2 (Temp Correct ABG HCO3 ABG O2 Saturation ABG Base Excess Respiration Rate O2 Delivery Device Ventilator Type Vent Mode FiO2 Inspiratory Time PEEP Pressure Support Pressure Control EPAP IPAP BiPAP Sodium Potassium Chloride Carbon Dioxide Anion Gap BUN Creatinine Est GFR ( Amer) Est GFR (Non-Af Amer) BUN/Creatinine Ratio Glucose POC Glucose (mg/dL) 155 H 161 H Calcium Total Bilirubin AST ALT Alkaline Phosphatase Troponin I B-Natriuretic Peptide Total Protein Albumin Globulin Albumin/Globulin Ratio Amylase Lipase Blood Type O Positive Antibody Screen Negative Crossmatch See Detail 04/27/18 04/27/18 04/27/18 16:10 16:16 20:40 WBC RBC Hgb Hct MCV MCH MCHC RDW Plt Count MPV Patient Temperature Not Reportable ABG pH 7.30 L ABG pH (Temp Correct) Not Reportable ABG pCO2 38 ABG pCO2 (Temp Corrct Not Reportable ABG pO2 61 L ABG pO2 (Temp Correct Not Reportable ABG HCO3 19.3 ABG O2 Saturation 91.1 L ABG Base Excess -7.1 L Respiration Rate Not Reportable O2 Delivery Device Ventilator Type Not Reportable Vent Mode Not Reportable FiO2 70 Inspiratory Time Not Reportable PEEP Not Reportable Pressure Support Not Reportable Pressure Control Not Reportable EPAP Not Reportable IPAP Not Reportable BiPAP Not Reportable Sodium Potassium Chloride Carbon Dioxide Anion Gap BUN Creatinine Est GFR ( Amer) Est GFR (Non-Af Amer) BUN/Creatinine Ratio Glucose POC Glucose (mg/dL) 164 H 180 H Calcium Total Bilirubin AST ALT Alkaline Phosphatase Troponin I B-Natriuretic Peptide Total Protein Albumin Globulin Albumin/Globulin Ratio Amylase Lipase Blood Type Antibody Screen Crossmatch 04/28/18 04/28/18 04/28/18 00:30 01:53 03:51 WBC RBC Hgb Hct MCV MCH MCHC RDW Plt Count MPV Patient Temperature Not Reportable ABG pH 7.31 L ABG pH (Temp Correct) Not Reportable ABG pCO2 39 ABG pCO2 (Temp Corrct Not Reportable ABG pO2 63 L ABG pO2 (Temp Correct Not Reportable ABG HCO3 20.0 ABG O2 Saturation 93.4 L ABG Base Excess -6.2 L Respiration Rate 12 O2 Delivery Device bipap Ventilator Type Not Reportable Vent Mode Not Reportable FiO2 100 Inspiratory Time Not Reportable PEEP Not Reportable Pressure Support Not Reportable Pressure Control Not Reportable EPAP 6 IPAP 12 BiPAP s/t Sodium Potassium Chloride Carbon Dioxide Anion Gap BUN Creatinine Est GFR ( Amer) Est GFR (Non-Af Amer) BUN/Creatinine Ratio Glucose POC Glucose (mg/dL) 158 H 129 H Calcium Total Bilirubin AST ALT Alkaline Phosphatase Troponin I B-Natriuretic Peptide Total Protein Albumin Globulin Albumin/Globulin Ratio Amylase Lipase Blood Type Antibody Screen Crossmatch 04/28/18 04/28/18 04/28/18 05:45 05:45 08:05 WBC 8.2 RBC 3.89 L Hgb 11.3 L Hct 34 L MCV 87 MCH 29 MCHC 34 RDW 16 H Plt Count 211 MPV 9.3 Patient Temperature ABG pH ABG pH (Temp Correct) ABG pCO2 ABG pCO2 (Temp Corrct ABG pO2 ABG pO2 (Temp Correct ABG HCO3 ABG O2 Saturation ABG Base Excess Respiration Rate O2 Delivery Device Ventilator Type Vent Mode FiO2 Inspiratory Time PEEP Pressure Support Pressure Control EPAP IPAP BiPAP Sodium 134 L Potassium 4.4 Chloride 101 Carbon Dioxide 20 L Anion Gap 13 H BUN 93 H Creatinine 4.51 H Est GFR ( Amer) 15.5 Est GFR (Non-Af Amer) 12.8 BUN/Creatinine Ratio 20.6 H Glucose 108 H POC Glucose (mg/dL) 132 H Calcium 8.5 L Total Bilirubin AST ALT Alkaline Phosphatase Troponin I B-Natriuretic Peptide Total Protein Albumin Globulin Albumin/Globulin Ratio Amylase 33 Lipase 14 Blood Type Antibody Screen Crossmatch Imaging: LE duplex 04/24 negative dvt TTE 04/24 LVEF 40-45%, posterior wall hypokinesis cxr 04/24 pulm congestion+ cxr 04/28 - bilateral pulmonary edema++ Assessment: 73y M pmhx of DM, HTN, smoker, CKD3, Lymphoma; comes to ER for respiratory distress, hypoxia, suspected COPD exacerbation. Noted to have elevated troponins. 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 In ICU, developed lower GI bleed, s/p 2 prbc. -Acute hypoxic respiratory failure -pulmonary edema -acute decompensated LV systolic heart failure -NSTEMI, s/p PCI to RCA x2 -Ischemic CMP -Lower GI bleeding -acute blood loss anemia -hypertension -KATIE on CKD3 -Bronchospasm Plan: Neuro- mild delirium, likely from hypoxic/metabolic causes, nonfocal findings otherwise; delirium prec. CVS- may require restart of cardene for BP control; cont coreg 6.25mg bid; norvasc 10mg daily. hold acei/arb due to CKD. CXR with pulm edema; start lasix 60mg IV TID. ECHO done, pending read. keep SBP <140. cont asa/plavix for CAD. Statin held for now. hg stable. Resp- CXR with pulm edema, IV lasix TID. NIV for now, increase peep to allow for recruitement. No intubation at this time. PRN ativan/haldol for distress/ restlessness. no cough, mild clearish sputum; rhonchi+. decrease steroids, bronchodilators q4h. ID- afebrile. wbc 11, decreasing. nontoxic appearing. CXR pulm congestion. culture neg. empiric ceftriaxone/flagyl thought for possible pneumonia, will continue for today, if improving chest xray, will possible d/c tomorrow. GI- -NPO on NIV. nausea+, vom improved. no bleeding noted further. zofran/compazine prn. PPI PO bid. hg 11, s/p 2 prbc. -s/p EGD 04/25 with old gastritis only. Renal- KATIE on CKD 3; Cr still rising, 4.5. K 4.4, mild nongap acidosis. CXR pulm edema, fluid overload. Start lasix 60mg IV TID -mulitfactorial etiology of KATIE - GI bleed, GI loss from vomitting, CHF exacc, NSTEMI requiring cath and some degree of DANIEL developing; no evidence of shock -no karl/arbs; adjust meds for GFR. Heme- hg stable now 11s, no further bleeding noted. plt okay, on DAPT for coronary stents. Endo- fingersticks, insulin protocol Musculsk- pressure ulcer prophylaxis. oob to chair Wounds- none Nutrition- clear liquid diet as tolerated off NIV DVT prophylaxis: scds GI prophylaxis: ppi Central Line: no Arterial Line: no Rodriguez Cathetor: yes Disposition: ICU Code Status: full code Total critical care time 40 min, not including procedures/teaching Robert Helms MD Executive Creative Director (Electronically Signed)
[2018-04-28] MEDS ORDERED: Metoprolol Tartrate IV* 1 MG/ML 5 ML VIAL IV PRN (09:53)
[2018-04-28] MEDS ORDERED: Albuterol/Ipratropium NEB.SOL* Albuterol 2.5 MG/Ipratropium 0.5 MG 3 ML INH PRN (09:54)
[2018-04-28] MEDS ORDERED: Haloperidol INJ IV/IM* 5 MG/ML AMP IV SLOW PU ONE (10:00)
--- NOTE | 2018-04-28 10:44 | ECHO ---
Patient: ARNULFO LEW [facility] Rec#: [id number] : 1945 Date: 04/28/2018 Age: 73y Height: 173 cm / 68.1 in Weight: 72.2 kg / 159.1 lbs Sex: M BSA: 1.86 Room#: [facility] Admit Date#: 04/23/2018 Type: Inpatient Referring: Berhane Olson MD Reading: Ryan De Santiago DO [employer] L[employer] Supervisor: Clara Rodriguez RDCS CC: Jignesh Mcleod MD Transthoracic Echocardiogram Indication: Myocardial Infarction, respiratory distress. BP: 130/116 HR: 88 Rhythm: NSR Findings History: COPD, smoker, HTN, HLD, DMII, CKDIII, s/p PCI with 2 stents placed. Technical Comments: The study quality is fair. The study is technically limited due to poor acoustic windows. Completed at 0945. Left Ventricle: The left ventricular chamber size is normal. Mild concentric left ventricular hypertrophy is observed. There is a focal wall motion abnormality present. There is mildly decreased left ventricular systolic function. The estimated ejection fraction is 45-50%. Abnormal left ventricular diastolic function is observed. The basal inferior, mid inferior, and apical inferior wall segments are hypokinetic (score 2). The mid inferolateral wall segment is akinetic (score 3). Overall wallmotion score index is 2.25 Left Atrium: The left atrium is mildly dilated. Right Ventricle: The right ventricular chamber size and systolic function are within normal limits. Right Atrium: The right atrial cavity size is normal. Aortic Valve: The aortic valve is trileaflet. The aortic valve leaflets are moderately thickened. Mild aortic leaflet calcification is visualized. There is no evidence of aortic regurgitation. There is no evidence of aortic stenosis. Mitral Valve: The mitral valve leaflets are mildly thickened. Mild mitral leaflet calcification is visualized. There is mild mitral regurgitation. There is no evidence of mitral stenosis. Tricuspid Valve: The tricuspid valve leaflets are normal. There is trace tricuspid regurgitation. Unable to estimate the right ventricular systolic pressure. There is no tricuspid stenosis. Pulmonic Valve: The pulmonic valve structure is not well visualized. There is no pulmonic stenosis. Pericardium: There is no significant pericardial effusion. Aorta: The ascending aorta is not well visualized. The aortic arch is not well visualized. The aortic root is normal in size. Pulmonary Artery: The main pulmonary artery is not well visualized. Venous: The inferior vena cava is dilated. There is less than 50% respiratory change in the inferior vena cava dimension. Conclusions The left ventricular chamber size is normal. Mild concentric left ventricular hypertrophy is observed. There is mildly decreased left ventricular systolic function. The estimated ejection fraction is 45-50%. There is hypokinesis to akinesis of the inferior/inferolateral rangel The left atrium is mildly dilated. The right ventricular chamber size and systolic function are within normal limits. There is mild mitral regurgitation. Compared to prior study from 04/23/2018, no clinically significant changes noted, LVEF previously 40-45%. Measurements Name Value Normal Range RVIDd (AP) 2D 2.3 cm (0.9 - 2.6) RVDdMajor (2D) 4.4 cm (2.2 - 4.4) RAd ISD 4CH 4.8 cm (3.4 - 4.9) RA (A4C)W 4.6 cm (2.9 - 4.6) IVSd (2D) 1.2 cm (0.6 - 1) LVPWd (2D) 1.1 cm (0.6 - 1) LVIDd (2D) 4.5 cm (3.6 - 5.4) LVIDs (2D) 3.3 cm - LV FS (2D) 27 % (25 - 45) Aortic Annulus 1.7 cm (1.4 - 2.6) Ao root diameter (2D) 3.2 cm (2.1 - 3.5) LA dimension (AP) 2D 3.8 cm (2.3 - 3.8) LAd ISD 4CH 6.2 cm (2.9 - 5.3) LA ISD 4CH W 5 cm (2.5 - 4.5) Name Value Normal Range LA ESV BP (A/L) index 50 ml/m2 - Name Value Normal Range MV E-wave Vmax 1.3 m/sec - MV deceleration time 141 msec - MV A-wave Vmax 0.74 m/sec - MV E:A ratio 1.8 ratio - LV septal e' Vmax 0.05 m/sec - LV lateral e' Vmax 0.15 m/sec - LV E:e' septal ratio 26 ratio - LV E:e' lateral ratio 8.67 ratio - Name Value Normal Range AV Vmax 1.1 m/sec - AV VTI 21.2 cm - AV peak gradient 4 mmHg - AV mean gradient 2 mmHg - LVOT Vmax 1 m/sec - LVOT VTI 19.7 cm - LVOT peak gradient 4 mmHg - LVOT mean gradient 2 mmHg - Name Value Normal Range MR Vmax 5.8 m/sec - MR VTI 183 cm - MR flow (PISA) 52.9 ml/sec - MR ERO 0.09 cm2 - MR PISA radius 0.5 cm - MR alias Vmax 33.7 cm/sec - Name Value Normal Range IVC diameter 2.11 cm - Name Value Normal Range PV Vmax 1.35 m/sec - PV peak gradient 7 mmHg - Wallmotion BAS Not Seen BA Not Seen BAL Not Seen VINNIE Not Seen BI Hypokinetic BIS Not Seen MAS Not Seen MA Not Seen MAL Not Seen MIL Akinetic MO Hypokinetic MIS Not Seen Not Seen AA Not Seen AL Not Seen AI Hypokinetic APEX Not Seen
[2018-04-28] MEDS: Dexmedetomidine* 400 MCG in NS 0.9% 100 ML* 96 ML IVPB SCH (11:09)
[2018-04-28] MEDS: Polyethylene Glycol 3350* 17 GM PACKET PO SCH ×2 (11:20→21:09)
[2018-04-28] MEDS: cefTRIAXone(*) 1 GM in NS 0.9% 50 ML* 50 ML IVPB SCH (12:05)
[2018-04-28] MEDS: nitroGLYCERIN DRIP* 25,000 MCG/250 ML BTL IV SCH (12:05)
[2018-04-28] MEDS: Furosemide IV* 10 MG/ML 10 ML VIAL (100 MG) IV SCH (17:28)
[2018-04-28 21:28] LABS: EGFR Non-African American 12.2 (>60)
[2018-04-29] MEDS: nitroGLYCERIN DRIP* 25,000 MCG/250 ML BTL IV SCH ×5 (00:08→22:52)
[2018-04-29] MEDS: Furosemide IV* 10 MG/ML 10 ML VIAL (100 MG) IV SCH ×3 (01:03→16:16)
[2018-04-29] MEDS: metroNIDAZOLE IV 500 MG/100ML* 500 MG/100 ML BAG IVPB SCH ×2 (01:03→12:13)
[2018-04-29] MEDS: Insulin LISPRO* 1 UNITS UNIT SUBCUT SCH ×6 (01:03→22:12)
[2018-04-29] MEDS: Insulin GLARGINE(*) 1 UNITS UNIT SUBCUT SCH (01:03)
[2018-04-29] MEDS: Dexmedetomidine* 400 MCG in NS 0.9% 100 ML* 96 ML IVPB SCH ×2 (04:58→15:27)
[2018-04-29] MEDS: Ondansetron INJ* 2 MG/ML VIAL IV SCH ×2 (05:18→09:02)
[2018-04-29 06:37] LABS: Hematocrit 28 % (42-52); Hemoglobin 9.5 g/dl (14.0-18.0); Mean Corpuscular HGB Conc 34 g/dl (31-36); Mean Corpuscular Hemoglobin 29 pg (27-31); Mean Corpuscular Volume 87 fL (80-94); Mean Platelet Volume 9.4 um3 (7.4-10.4); Platelet Count 193 10^3/ul (150-450); Red Blood Count 3.23 10^6/ul (4.00-5.40); Red Cell Distribution Width 16 % (10.5-15); White Blood Count 9.6 10^3/ul (3.5-10.8)
[2018-04-29 06:54] LABS: EGFR Non-African American 12.1 (>60)
[2018-04-29] MEDS: Polyethylene Glycol 3350* 17 GM PACKET PO SCH ×2 (08:48→21:59)
[2018-04-29] MEDS ORDERED: methylPREDNISolone SOD 40 MG* 1 ML VIAL IV SCH (09:00)
[2018-04-29] MEDS: Clopidogrel TAB* 75 MG PO SCH (09:01)
[2018-04-29] MEDS: amLODIPine TAB* 5 MG PO SCH ×3 (09:01→22:12)
[2018-04-29] MEDS: Aspirin EC TAB* 81 MG TAB.EC PO SCH (09:02)
[2018-04-29] MEDS: Carvedilol TAB* 6.25 MG PO SCH ×3 (09:02→19:22)
[2018-04-29] MEDS ORDERED: Carvedilol TAB* 6.25 MG PO SCH ×2 (10:00)
[2018-04-29] MEDS: Lansoprazole susp Kit 3 MG/ML (30 MG = 10 ML) PO SCH ×2 (10:07→22:56)
--- NOTE | 2018-04-29 10:09 | RAD ---
Indication: Pulmonary edema. Cardiac disease. COPD. Comparison: April 28, 2018 Technique: Upright AP 0615 hours Report: Negative for cardiomegaly. Prominent ill-defined central pulmonary vasculature with mild perihilar alveolar opacities and diffuse mild prominence of interstitial markings. Grossly clear pleural spaces. Negative for pneumothorax. Nasogastric tube in place coursing outside the [id number] caudally. IMPRESSION: #. Alveolar and interstitial pulmonary edema with interval improvement compared with the exam of one day prior.
[2018-04-29] MEDS ORDERED: Ondansetron INJ* 2 MG/ML VIAL IV PRN (11:25)
--- NOTE | 2018-04-29 11:33 | PN ---
Date of Service: 04/29/18 Critical Care Services: 73M with htn, hld, dm, cad, ckd, undiagnosed copd, admitted for presumed copd exacerbation, developed AMI and was taken to [facility] s/p PCI x2. Developed subsequent GI bleed. Now volume overloaded in respiratory failure on bipap. 04/29: Hgb slightly lower. UOP 3L on lasix. Remains on biapap. Vital Signs: Temp Pulse Resp BP SpO2 FiO2 98.8 F 94 15 160/123 98 70 04/29/18 10:00 04/29/18 10:04/29/18 10:00 04/29/18 10:00 04/29/18 10:00 04/29 08:00 Physical Exam: Gen - Acutely Ill HEENT - ncat, eomi, perrl, +NGT Neck - no jvd CV - s1/s2, no murmur Lungs - + diffuse wheezing Abd - soft, nt Ext - no edema Neuro - Awake, following commands Fluid Balance (Past 24 Hours): I= O= Net Intake & Output 04/27/18 04/28/18 04/29/18 04/30/18 06:59 06:59 06:59 06:59 Intake Total 1117 1010 921.0 Output Total 858 736 7045 655 Balance 477 385 -2939.0 -655 Weight 72.2 kg 70.6 kg 79.6 kg Intake: IV Fluids 2.4 NS (0.9%) 2.4 IVPB 350 349 ABX - CEFTRIAXONE 50 64 ABX - FLAGYL 300 215 NS (0.9%) 70 Medicated IV 1027 469.6 CC - Nicarpidine/Cardene 861 CC - Nitroglycerine/ 392.6 Tridil Precedex 77 Protonix 166 Oral 90 360 Packed Cells 300 NG Tube Irrigate Amount 100 Output: Urine 640 625 Rodriguez 3860 655 Other: Estimated Void Large # Bowel Movements 1 1 Estimated Stool Amount Small Small Large Other Amount Description Urine output reflects an 8 hr period # Voids 3 Labs: Laboratory Results - last 24 hr 04/28/18 04/28/18 04/28/18 12:08 16:53 19:55 WBC RBC Hgb Hct MCV MCH MCHC RDW Plt Count MPV Sodium Potassium Chloride Carbon Dioxide Anion Gap BUN Creatinine Est GFR ( Amer) Est GFR (Non-Af Amer) BUN/Creatinine Ratio Glucose POC Glucose (mg/dL) 117 H 111 H 140 H Calcium 04/28/18 04/29/18 04/29/18 20:55 00:00 05:15 WBC RBC Hgb Hct MCV MCH MCHC RDW Plt Count MPV Sodium 137 Potassium 4.0 Chloride 101 Carbon Dioxide 19 L Anion Gap 17 H BUN 108 H Creatinine 4.71 H Est GFR ( Amer) 14.8 Est GFR (Non-Af Amer) 12.2 BUN/Creatinine Ratio 22.9 H Glucose 121 H POC Glucose (mg/dL) 133 H 112 H Calcium 8.3 L 04/29/18 04/29/18 04/29/18 06:20 06:20 08:32 WBC 9.6 RBC 3.23 L Hgb 9.5 L Hct 28 L MCV 87 MCH 29 MCHC 34 RDW 16 H Plt Count 193 MPV 9.4 Sodium 138 Potassium 3.9 Chloride 101 Carbon Dioxide 22 Anion Gap 15 H BUN 114 H Creatinine 4.74 H Est GFR ( Amer) 14.7 Est GFR (Non-Af Amer) 12.1 BUN/Creatinine Ratio 24.1 H Glucose 105 H POC Glucose (mg/dL) 128 H Calcium 8.2 L Studies: CXR 04/29 IMPRESSION: #. Alveolar and interstitial pulmonary edema with interval improvement compared with the exam of one day prior. Impression: 73M with htn, hld, dm, cad, ckd, undiagnosed copd, admitted for presumed copd exacerbation, developed AMI and was taken to [facility] s/p PCI x2. Developed subsequent GI bleed. Now volume overloaded in respiratory failure on bipap. Plan: Neuro - delirium - haldol/ativan prn - precedex CV - acute [place], CAD, htn, hld, volume overload - s/p LCH with PCI x 2 - lasix q8 - coreg, norvasc, nitro gtt for bp control - asa/plavix for cad - start statin - tte with ef 45-50% Pulm - hypoxic respiratory failure - multifactorial 2/2 volume overload/copd/pna - wean bipap as tolerated - nebs q4 prn - solumedrol taper ID - aspiration pna? - on ceftriaxone/flagyl - f/u cultures - serial lactates GI - gi bleed - s/p egd - monitor for continued bleeding - may need colonoscopy Renal - acute on chronic renal failure - 2/2 gi bleed/DANIEL - monitor renal function - monitor lytes Heme - anemia - 2/2 gi bleed - s/p 3 unit prbc - serial cbc Endo - dm - check fs, niss, lantus Lines - piv, rodriguez PPx - gi/dvt Critical Care Time: 55 mins
[2018-04-29] MEDS: cefTRIAXone(*) 1 GM in NS 0.9% 50 ML* 50 ML IVPB SCH (11:52)
[2018-04-29] MEDS: hydrALAZINE TAB* 25 MG PO SCH ×3 (12:49→22:12)
[2018-04-29 13:05] LABS: EGFR Non-African American 12.6 (>60)
[2018-04-29 13:33] LABS: ABS Basophils 0 10^3/ul (0-0.2); ABS Eosinophils 0 10^3/ul (0-0.6); ABS Lymphocytes 0.2 10^3/ul (1.0-4.8); ABS Monocytes 0.3 10^3/ul (0-0.8); ABS Neutrophils 10.3 10^3/ul (1.5-7.7); ABS Nucleated RBC 0 10^3/ul; Eosinophil % 0 % (0-6); Hematocrit 29 % (42-52); Hemoglobin 9.6 g/dl (14.0-18.0); Lymphocyte % 1.6 % (25-47); Mean Corpuscular HGB Conc 34 g/dl (31-36); Mean Corpuscular Hemoglobin 29 pg (27-31); Mean Corpuscular Volume 86 fL (80-94); Mean Platelet Volume 9.2 um3 (7.4-10.4); Nucleated Red Blood Cells % 0.1; Platelet Count 211 10^3/ul (150-450); Red Blood Count 3.32 10^6/ul (4.00-5.40); Red Cell Distribution Width 16 % (10.5-15); White Blood Count 10.7 10^3/ul (3.5-10.8)
--- NOTE | 2018-04-29 14:48 | PN ---
AMENDED REPORT NOW INCLUDES DATE OF SERVICE PROGRESS NOTE: DATE OF SERVICE: 04/29/18 HISTORY OF PRESENT ILLNESS: Mr. Damon feels about the same as yesterday, while his breathing is no worse, it is no better. He is having no chest pain, no nausea, no vomiting, but he does have an NG tube in place. Apparently he is having some difficulty with swallowing. While he is in negative fluid balance by couple of liters yesterday, his weight is up 9 kg, somehow, I have a feeling that 9 kg weight gain is wrong. His blood pressure is 164/61 with a pulse of 74 , respirations of 13. His chest reveals some wheezing. I did not hear any rales. But that is about the same as I heard the other day. The heart revealed regular rhythm. I did not hear any murmurs. He had no edema. His laboratory values are significant in that his rate of rise of creatinine had markedly diminished. Serum creatinine today is 4.74 only, up from 4.71 yesterday. So, that is essentially the same number. His electrolytes are within normal limits. IMPRESSION: Acute on chronic renal insufficiency. I would not change therapy at the present time at all. I did discuss this case with Dr. Ley. [id number]/[facility] #: [id number] MANGO
[2018-04-29] MEDS: Atorvastatin* 20 MG TAB PO SCH (16:17)
[2018-04-29] MEDS ORDERED: Doxazosin TAB* 2 MG PO ONE (19:00)
[2018-04-30] MEDS: Furosemide IV* 10 MG/ML 10 ML VIAL (100 MG) IV SCH ×3 (01:21→17:41)
[2018-04-30] MEDS: metroNIDAZOLE IV 500 MG/100ML* 500 MG/100 ML BAG IVPB SCH (01:21)
[2018-04-30] MEDS: Insulin LISPRO* 1 UNITS UNIT SUBCUT SCH ×5 (01:22→21:45)
[2018-04-30] MEDS: Insulin GLARGINE(*) 1 UNITS UNIT SUBCUT SCH ×2 (01:22→22:28)
[2018-04-30] MEDS: nitroGLYCERIN DRIP* 25,000 MCG/250 ML BTL IV SCH ×3 (02:40→12:46)
[2018-04-30] MEDS: Dexmedetomidine* 400 MCG in NS 0.9% 100 ML* 96 ML IVPB SCH (03:44)
[2018-04-30 05:39] LABS: Hematocrit 29 % (42-52); Hemoglobin 9.7 g/dl (14.0-18.0); Mean Corpuscular HGB Conc 34 g/dl (31-36); Mean Corpuscular Hemoglobin 29 pg (27-31); Mean Corpuscular Volume 87 fL (80-94); Mean Platelet Volume 9.1 um3 (7.4-10.4); Platelet Count 190 10^3/ul (150-450); Red Blood Count 3.31 10^6/ul (4.00-5.40); Red Cell Distribution Width 16 % (10.5-15); White Blood Count 9.6 10^3/ul (3.5-10.8)
[2018-04-30] MEDS: Carvedilol TAB* 6.25 MG PO SCH ×2 (05:52→17:41)
[2018-04-30 05:55] LABS: EGFR Non-African American 12.7 (>60)
--- NOTE | 2018-04-30 08:59 | PN ---
Date of Service: 04/30/18 Critical Care Services: 73M with htn, hld, dm, cad, ckd, undiagnosed copd, admitted for presumed copd exacerbation, developed AMI and was taken to [facility] s/p PCI x2. Developed subsequent GI bleed. Complicated by volume overload and respiratory failure. 04/29: Hgb slightly lower. UOP 3L on lasix. Remains on biapap. 04/30: Diuresing well. BP improving. Now on nasal cannula. Vital Signs: Temp Pulse Resp BP SpO2 FiO2 98.2 F 71 15 139/53 95 60 04/30/18 06:30 04/30/18 06:30 04/30/18 06:30 04/30/18 06:30 04/30/18 06:30 04/30 07:25 Physical Exam: Gen - NAD HEENT - ncat, eomi, perrl, +NGT Neck - no jvd CV - s1/s2, no murmur Lungs - improved air entry Abd - soft, nt Ext - no edema Neuro - Awake, following commands Fluid Balance (Past 24 Hours): I= O= Net Intake & Output 04/28/18 04/29/18 04/30/18 05/01/18 06:59 06:59 06:59 06:59 Intake Total 1010 921.0 2900.1 Output Total 625 3860 2798 Balance 385 -2939.0 102.1 Weight 70.6 kg 79.6 kg 79.6 kg Intake: IV Fluids 2.4 103.6 ABX - CEFTRIAXONE 28 ABX - FLAGYL 9 NS (0.9%) 2.4 66.6 IVPB 350 349 327 ABX - CEFTRIAXONE 50 64 61 ABX - FLAGYL 300 215 266 NS (0.9%) 70 Medicated IV 469.6 1379.5 CC - Nitroglycerine/ 392.6 1269 Tridil Precedex 77 110.5 Oral 360 830 Tube Feeding Flush Amount 260 Packed Cells 300 NG Tube Irrigate Amount 100 Output: Urine 625 Rodriguez 3860 2798 Other: Estimated Void Large Date of Last Bowel 04/30/18 Movement # Bowel Movements 1 1 1 Estimated Stool Amount Small Large Small Small Other Amount Description Urine output reflects an 8 hr period # Voids 3 Labs: Laboratory Results - last 24 hr 04/29/18 04/29/18 04/29/18 12:39 12:42 13:24 WBC 10.7 RBC 3.32 L Hgb 9.6 L Hct 29 L MCV 86 MCH 29 MCHC 34 RDW 16 H Plt Count 211 MPV 9.2 Neut % (Auto) 95.9 H Lymph % (Auto) 1.6 L [place] % (Auto) 2.4 Eos % (Auto) 0 Baso % (Auto) 0.1 Absolute Neuts (auto) 10.3 H Absolute Lymphs (auto) 0.2 L Absolute Monos (auto) 0.3 Absolute Eos (auto) 0 Absolute Basos (auto) 0 Absolute Nucleated RBC 0 Nucleated RBC % 0.1 Patient Temperature ABG pH ABG pH (Temp Correct) ABG pCO2 ABG pCO2 (Temp Corrct ABG pO2 ABG pO2 (Temp Correct ABG HCO3 ABG O2 Saturation ABG Base Excess Respiration Rate O2 Delivery Device Ventilator Type Vent Mode FiO2 Inspiratory Time PEEP Pressure Support Pressure Control EPAP IPAP BiPAP Sodium 136 Potassium 4.0 Chloride 100 L Carbon Dioxide 25 Anion Gap 11 BUN 110 H Creatinine 4.60 H Est GFR ( Amer) 15.2 Est GFR (Non-Af Amer) 12.6 BUN/Creatinine Ratio 23.9 H Glucose 151 H POC Glucose (mg/dL) 159 H Calcium 8.0 L Magnesium 2.6 04/29/18 04/29/18 04/29/18 13:40 15:59 21:38 WBC RBC Hgb Hct MCV MCH MCHC RDW Plt Count MPV Neut % (Auto) Lymph % (Auto) [place] % (Auto) Eos % (Auto) Baso % (Auto) Absolute Neuts (auto) Absolute Lymphs (auto) Absolute Monos (auto) Absolute Eos (auto) Absolute Basos (auto) Absolute Nucleated RBC Nucleated RBC % Patient Temperature Not Reportable ABG pH 7.40 ABG pH (Temp Correct) Not Reportable ABG pCO2 40 ABG pCO2 (Temp Corrct Not Reportable ABG pO2 81 ABG pO2 (Temp Correct Not Reportable ABG HCO3 24.9 ABG O2 Saturation 96.3 ABG Base Excess 0 Respiration Rate Not Reportable O2 Delivery Device vapo Ventilator Type Not Reportable Vent Mode Not Reportable FiO2 80 Inspiratory Time Not Reportable PEEP Not Reportable Pressure Support Not Reportable Pressure Control Not Reportable EPAP Not Reportable IPAP Not Reportable BiPAP Not Reportable Sodium Potassium Chloride Carbon Dioxide Anion Gap BUN Creatinine Est GFR ( Amer) Est GFR (Non-Af Amer) BUN/Creatinine Ratio Glucose POC Glucose (mg/dL) 214 H 320 H Calcium Magnesium 04/30/18 04/30/18 04/30/18 00:56 05:20 05:20 WBC 9.6 RBC 3.31 L Hgb 9.7 L Hct 29 L MCV 87 MCH 29 MCHC 34 RDW 16 H Plt Count 190 MPV 9.1 Neut % (Auto) Lymph % (Auto) [place] % (Auto) Eos % (Auto) Baso % (Auto) Absolute Neuts (auto) Absolute Lymphs (auto) Absolute Monos (auto) Absolute Eos (auto) Absolute Basos (auto) Absolute Nucleated RBC Nucleated RBC % Patient Temperature ABG pH ABG pH (Temp Correct) ABG pCO2 ABG pCO2 (Temp Corrct ABG pO2 ABG pO2 (Temp Correct ABG HCO3 ABG O2 Saturation ABG Base Excess Respiration Rate O2 Delivery Device Ventilator Type Vent Mode FiO2 Inspiratory Time PEEP Pressure Support Pressure Control EPAP IPAP BiPAP Sodium Potassium Chloride Carbon Dioxide Anion Gap BUN Creatinine Est GFR ( Amer) Est GFR (Non-Af Amer) BUN/Creatinine Ratio Glucose POC Glucose (mg/dL) 216 H 80 Calcium Magnesium 04/30/18 05:22 WBC RBC Hgb Hct MCV MCH MCHC RDW Plt Count MPV Neut % (Auto) Lymph % (Auto) [place] % (Auto) Eos % (Auto) Baso % (Auto) Absolute Neuts (auto) Absolute Lymphs (auto) Absolute Monos (auto) Absolute Eos (auto) Absolute Basos (auto) Absolute Nucleated RBC Nucleated RBC % Patient Temperature ABG pH ABG pH (Temp Correct) ABG pCO2 ABG pCO2 (Temp Corrct ABG pO2 ABG pO2 (Temp Correct ABG HCO3 ABG O2 Saturation ABG Base Excess Respiration Rate O2 Delivery Device Ventilator Type Vent Mode FiO2 Inspiratory Time PEEP Pressure Support Pressure Control EPAP IPAP BiPAP Sodium 134 L Potassium 3.6 Chloride 96 L Carbon Dioxide 25 Anion Gap 13 H BUN 116 H Creatinine 4.56 H Est GFR ( Amer) 15.3 Est GFR (Non-Af Amer) 12.7 BUN/Creatinine Ratio 25.4 H Glucose 69 L POC Glucose (mg/dL) Calcium 7.8 L Magnesium 2.4 Studies: CXR 04/29 IMPRESSION: #. Alveolar and interstitial pulmonary edema with interval improvement compared with the exam of one day prior. Impression: 73M with htn, hld, dm, cad, ckd, undiagnosed copd, admitted for presumed copd exacerbation, developed AMI and was taken to [facility] s/p PCI x2. Developed subsequent GI bleed. Complicated by volume overload and respiratory failure. Plan: Neuro - delirium - improving - stop precedex CV - acute [place], CAD, htn, hld, volume overload - s/p LCH with PCI x 2 - lasix q8 - coreg, norvasc, - hydralazine added - wean nitro gtt - asa/plavix/statin for cad - tte with ef 45-50% Pulm - hypoxic respiratory failure - multifactorial 2/2 volume overload/copd/pna - now on nasal cannula - taper steroids - nebs prn ID - aspiration pna? - resp status improving - willl stop abx - f/u cultures GI - gi bleed - s/p egd - hgb stable Renal - acute on chronic renal failure - 2/2 gi bleed/DANIEL - monitor renal function - monitor lytes Heme - anemia - 2/2 gi bleed - s/p 3 unit prbc - hgb stable Endo - dm - check fs, niss, lantus Lines - piv, rodriguez PPx - gi/dvt Critical Care Time: 40 mins
[2018-04-30] MEDS ORDERED: Doxazosin TAB* 2 MG PO ONE (09:00)
[2018-04-30] MEDS ORDERED: Potassium Chloride LIQUID* 20 MEQ PACKET PO ONE (09:00)
[2018-04-30] MEDS: Aspirin EC TAB* 81 MG TAB.EC PO SCH (09:41)
[2018-04-30] MEDS: amLODIPine TAB* 5 MG PO SCH ×2 (09:41→21:45)
[2018-04-30] MEDS: Clopidogrel TAB* 75 MG PO SCH (09:41)
[2018-04-30] MEDS: hydrALAZINE TAB* 25 MG PO SCH ×4 (09:41→21:45)
[2018-04-30] MEDS: methylPREDNISolone SOD 40 MG* 1 ML VIAL IV SCH (09:41)
[2018-04-30] MEDS: Polyethylene Glycol 3350* 17 GM PACKET PO SCH ×2 (09:42→19:52)
[2018-04-30] MEDS: Lansoprazole susp Kit 3 MG/ML (30 MG = 10 ML) PO SCH (14:46)
[2018-04-30 14:48] LABS: EGFR Non-African American 12.8 (>60)
[2018-04-30] MEDS: Atorvastatin* 20 MG TAB PO SCH (17:40)
[2018-04-30] MEDS: Pantoprazole IV* 40 MG IV SCH (21:45)
[2018-05-01] MEDS: Furosemide IV* 10 MG/ML 10 ML VIAL (100 MG) IV SCH ×4 (00:53→20:43)
[2018-05-01 05:59] LABS: ABS Basophils 0 10^3/ul (0-0.2); ABS Eosinophils 0.1 10^3/ul (0-0.6); ABS Lymphocytes 0.7 10^3/ul (1.0-4.8); ABS Monocytes 1.1 10^3/ul (0-0.8); ABS Neutrophils 9.1 10^3/ul (1.5-7.7); ABS Nucleated RBC 0 10^3/ul; Eosinophil % 0.6 % (0-6); Hematocrit 32 % (42-52); Hemoglobin 10.8 g/dl (14.0-18.0); Lymphocyte % 6.6 % (25-47); Mean Corpuscular HGB Conc 33 g/dl (31-36); Mean Corpuscular Hemoglobin 29 pg (27-31); Mean Corpuscular Volume 87 fL (80-94); Mean Platelet Volume 9.5 um3 (7.4-10.4); Nucleated Red Blood Cells % 0.1; Platelet Count 207 10^3/ul (150-450); Red Blood Count 3.71 10^6/ul (4.00-5.40); Red Cell Distribution Width 16 % (10.5-15)
[2018-05-01] MEDS: Carvedilol TAB* 6.25 MG PO SCH (06:03)
[2018-05-01 06:16] LABS: EGFR Non-African American 13.4 (>60)
[2018-05-01] MEDS: Insulin LISPRO* 1 UNITS UNIT SUBCUT SCH ×4 (08:21→21:11)
[2018-05-01] MEDS ORDERED: hydrALAZINE TAB* 25 MG PO ONE (09:33)
[2018-05-01] MEDS: amLODIPine TAB* 5 MG PO SCH ×2 (09:51→20:44)
[2018-05-01] MEDS: Aspirin EC TAB* 81 MG TAB.EC PO SCH (09:51)
[2018-05-01] MEDS: Clopidogrel TAB* 75 MG PO SCH (09:51)
[2018-05-01] MEDS: Polyethylene Glycol 3350* 17 GM PACKET PO SCH ×2 (09:52→20:45)
--- NOTE | 2018-05-01 09:55 | PN ---
Date of Service: 05/01/18 Critical Care Services: 73M with htn, hld, dm, cad, ckd, undiagnosed copd, admitted for presumed copd exacerbation, developed AMI and was taken to [facility] s/p PCI x2. Developed subsequent GI bleed. Complicated by volume overload and respiratory failure. 04/29: Hgb slightly lower. UOP 3L on lasix. Remains on biapap. 04/30: Diuresing well. BP improving. Now on nasal cannula. 05/01: Renal function improving. Continues to diurese. BP improved. Vital Signs: Temp Pulse Resp BP SpO2 FiO2 98.1 F 69 22 145/79 93 75 05/01/18 09:00 05/01/18 09:00 05/01/18 09:00 05/01/18 09:00 05/01/18 09:00 04/30 08:00 Physical Exam: Gen - NAD HEENT - ncat, eomi, perrl, +NGT Neck - no jvd CV - s1/s2, no murmur Lungs - dec bs r > l Abd - soft, nt Ext - no edema Neuro - Awake, following commands Fluid Balance (Past 24 Hours): I= O= Net Intake & Output 04/29/18 04/30/18 05/01/18 05/02/18 06:59 06:59 06:59 06:59 Intake Total 921.0 2900.1 1875 300 Output Total 3860 2798 2910 295 Balance -2939.0 102.1 -1035 5 Weight 79.6 kg 79.6 kg 79.6 kg Intake: IV Fluids 2.4 103.6 40 ABX - CEFTRIAXONE 28 ABX - FLAGYL 9 NS (0.9%) 2.4 66.6 40 IVPB 349 327 ABX - CEFTRIAXONE 64 61 ABX - FLAGYL 215 266 NS (0.9%) 70 Medicated IV 469.6 1379.5 420 CC - Nitroglycerine/ 392.6 1269 408 Tridil Precedex 77 110.5 12 Oral 830 1415 300 Tube Feeding Flush Amount 260 NG Tube Irrigate Amount 100 Output: Rodriguez 3860 2798 2910 295 Other: Date of Last Bowel 04/30/18 04/30/18 Movement # Bowel Movements 1 1 1 Estimated Stool Amount Large Small Medium Labs: Laboratory Results - last 24 hr 04/30/18 04/30/18 04/30/18 08:54 12:51 14:25 WBC RBC Hgb Hct MCV MCH MCHC RDW Plt Count MPV Neut % (Auto) Lymph % (Auto) [place] % (Auto) Eos % (Auto) Baso % (Auto) Absolute Neuts (auto) Absolute Lymphs (auto) Absolute Monos (auto) Absolute Eos (auto) Absolute Basos (auto) Absolute Nucleated RBC Nucleated RBC % Sodium 127 L Potassium 4.8 Chloride 92 L Carbon Dioxide 23 Anion Gap 12 H BUN 117 H Creatinine 4.52 H Est GFR ( Amer) 15.5 Est GFR (Non-Af Amer) 12.8 BUN/Creatinine Ratio 25.9 H Glucose 410 H POC Glucose (mg/dL) 105 H 353 H Calcium 7.7 L Magnesium 2.4 04/30/18 04/30/18 05/01/18 16:42 21:39 05:43 WBC RBC Hgb Hct MCV MCH MCHC RDW Plt Count MPV Neut % (Auto) Lymph % (Auto) [place] % (Auto) Eos % (Auto) Baso % (Auto) Absolute Neuts (auto) Absolute Lymphs (auto) Absolute Monos (auto) Absolute Eos (auto) Absolute Basos (auto) Absolute Nucleated RBC Nucleated RBC % Sodium 132 L Potassium 3.8 Chloride 93 L Carbon Dioxide 27 Anion Gap 12 H BUN 112 H Creatinine 4.35 H Est GFR ( Amer) 16.2 Est GFR (Non-Af Amer) 13.4 BUN/Creatinine Ratio 25.7 H Glucose 224 H POC Glucose (mg/dL) 345 H 346 H Calcium 8.0 L Magnesium 2.4 05/01/18 05:43 WBC 11.0 H RBC 3.71 L Hgb 10.8 L Hct 32 L MCV 87 MCH 29 MCHC 33 RDW 16 H Plt Count 207 MPV 9.5 Neut % (Auto) 82.7 Lymph % (Auto) 6.6 L [place] % (Auto) 10.0 H Eos % (Auto) 0.6 Baso % (Auto) 0.1 Absolute Neuts (auto) 9.1 H Absolute Lymphs (auto) 0.7 L Absolute Monos (auto) 1.1 H Absolute Eos (auto) 0.1 Absolute Basos (auto) 0 Absolute Nucleated RBC 0 Nucleated RBC % 0.1 Sodium Potassium Chloride Carbon Dioxide Anion Gap BUN Creatinine Est GFR ( Amer) Est GFR (Non-Af Amer) BUN/Creatinine Ratio Glucose POC Glucose (mg/dL) Calcium Magnesium Studies: CXR 04/29 IMPRESSION: #. Alveolar and interstitial pulmonary edema with interval improvement compared with the exam of one day prior. Impression: 73M with htn, hld, dm, cad, ckd, undiagnosed copd, admitted for presumed copd exacerbation, developed AMI and was taken to [facility] s/p PCI x2. Developed subsequent GI bleed. Complicated by volume overload and respiratory failure. Plan: Neuro - delirium - improved CV - acute [place], CAD, htn, hld, volume overload - s/p LCH with PCI x 2 - c/w asa/statin/plavix for CAD - bp improved - still with pleural effusion on right - c/w lasix Pulm - hypoxic respiratory failure - multifactorial 2/2 volume overload/copd - now on nasal cannula - taper steroids - nebs prn - diuresis ID - aspiration pna? - resp status improving - abx stopped - f/u cultures GI - gi bleed - s/p egd - hgb stable Renal - acute on chronic renal failure - 2/2 gi bleed/DANIEL - renal function improving slowly - c/w lasix for now - monitor lytes Heme - anemia - 2/2 gi bleed - s/p 3 unit prbc - hgb stable Endo - dm - check fs, niss - increase lantus to 20 Lines - piv, rodriguez PPx - gi/dvt Full Code Case discussed with Renal and Cardiology Critical Care Time: 50 mins
--- NOTE | 2018-05-01 10:13 | RAD ---
Indication: CHF. Single frontal view of the chest performed at 0943 hours was reviewed. Comparison is made with previous exam dated April 29, 2018. Cardiomegaly is noted. Right pleural effusion is noted. Left pleural effusion is noted. These are new since previous exam. I cannot totally exclude consolidation in the right base. IMPRESSION: PROGRESSIVE BILATERAL PLEURAL EFFUSION WITH CONSOLIDATION IN THE RIGHT LUNG BASE.
[2018-05-01] MEDS: CMC:Pantoprazole TAB (NF) 40 MG TAB PO SCH (10:42)
[2018-05-01] MEDS: Carvedilol TAB* 25 MG PO SCH ×2 (10:42→17:16)
[2018-05-01] MEDS: Pantoprazole IV* 40 MG IV SCH (11:48)
[2018-05-01] MEDS: hydrALAZINE TAB* 25 MG PO SCH ×2 (11:48→20:44)
[2018-05-01] MEDS: methylPREDNISolone SOD 40 MG* 1 ML VIAL IV SCH (11:48)
[2018-05-01] MEDS: Atorvastatin* 20 MG TAB PO SCH (17:16)
[2018-05-01] MEDS: Insulin GLARGINE(*) 1 UNITS UNIT SUBCUT SCH (21:12)
[2018-05-02 05:41] LABS: ABS Basophils 0 10^3/ul (0-0.2); ABS Eosinophils 0.2 10^3/ul (0-0.6); ABS Lymphocytes 0.7 10^3/ul (1.0-4.8); ABS Neutrophils 8.5 10^3/ul (1.5-7.7); ABS Nucleated RBC 0 10^3/ul; Eosinophil % 2.3 % (0-6); Hematocrit 33 % (42-52); Hemoglobin 11.2 g/dl (14.0-18.0); Mean Corpuscular HGB Conc 34 g/dl (31-36); Mean Corpuscular Hemoglobin 29 pg (27-31); Mean Corpuscular Volume 87 fL (80-94); Mean Platelet Volume 9.3 um3 (7.4-10.4); Nucleated Red Blood Cells % 0; Platelet Count 219 10^3/ul (150-450); Red Blood Count 3.85 10^6/ul (4.00-5.40); Red Cell Distribution Width 16 % (10.5-15); White Blood Count 10.4 10^3/ul (3.5-10.8)
[2018-05-02] MEDS: Carvedilol TAB* 25 MG PO SCH ×2 (05:50→17:14)
[2018-05-02 05:58] LABS: EGFR Non-African American 15.1 (>60)
[2018-05-02] MEDS: Insulin LISPRO* 1 UNITS UNIT SUBCUT SCH ×4 (08:20→21:57)
[2018-05-02] MEDS: Polyethylene Glycol 3350* 17 GM PACKET PO SCH (08:21)
[2018-05-02] MEDS: CMC:Pantoprazole TAB (NF) 40 MG TAB PO SCH (09:19)
[2018-05-02] MEDS: Clopidogrel TAB* 75 MG PO SCH (09:19)
[2018-05-02] MEDS: amLODIPine TAB* 5 MG PO SCH (09:19)
[2018-05-02] MEDS: hydrALAZINE TAB* 25 MG PO SCH ×2 (09:19→21:55)
[2018-05-02] MEDS: Aspirin EC TAB* 81 MG TAB.EC PO SCH (09:19)
[2018-05-02] MEDS: Furosemide IV* 10 MG/ML 10 ML VIAL (100 MG) IV SCH (09:19)
--- NOTE | 2018-05-02 11:50 | PN ---
Subjective Date of Service: 05/02/18 Interval History: Pain with BM, having several per day. Objective Active Medications: Acetaminophen (Tylenol Tab*) 650 mg PO Q6H PRN PRN Reason: PAIN Last Admin: 05/01/18 00:53 Dose: 650 mg Albuterol/Ipratropium (Duoneb (Albuterol 2.5 Mg/Ipratropium 0.5 Mg)) 1 neb INH Q4H PRN PRN Reason: SHORTNESS OF BREATH Last Admin: 04/30/18 16:04 Dose: 1 neb Amlodipine Besylate (Norvasc Tab*) 5 mg PO BID [facility] Last Admin: 05/02/18 09:19 Dose: 5 mg Aspirin (Aspirin Ec Tab*) 81 mg PO DAILY [facility] Last Admin: 05/02/18 09:19 Dose: 81 mg Atorvastatin Calcium (Lipitor*) 20 mg PO 1700 [facility] Last Admin: 05/01/18 17:16 Dose: 20 mg Calcium Carbonate (Tums*) 500 mg PO Q4H PRN PRN Reason: INDIGESTION Carvedilol (Coreg Tab*) 25 mg PO BID@0600,1800 [facility] Last Admin: 05/02/18 05:50 Dose: 25 mg Clopidogrel Bisulfate (Plavix Tab*) 75 mg PO DAILY [facility] Last Admin: 05/02/18 09:19 Dose: 75 mg Furosemide (Lasix Iv*) 60 mg IV BID [facility] Last Admin: 05/02/18 09:19 Dose: 60 mg Hydralazine HCl (Apresoline Tab*) 75 mg PO BID [facility] Last Admin: 05/02/18 09:19 Dose: 75 mg Insulin Glargine (Lantus(*)) 10 units SUBCUT 2100 [facility] Last Admin: 05/01/18 21:12 Dose: 10 units Insulin Human Lispro (Humalog*) 0 units SUBCUT ACHS [facility]; Protocol Last Admin: 05/02/18 08:20 Dose: 2 unit Nitroglycerin (Nitroglycerin Tab 0.4 Mg*) 0.4 mg SL Q5M PRN PRN Reason: ANGINA Ondansetron HCl (Zofran Inj*) 4 mg IV Q4H PRN PRN Reason: EMESIS Pantoprazole Sodium (Protonix Tab (Nf)) 40 mg PO BID [facility] Torsemide (Demadex*) 40 mg PO DAILY [facility] Vital Signs - 8 hr 09/04/18 09/04/18 07:10 07:33 Temperature 98.1 F Pulse Rate 67 Respiratory 20 20 Rate Blood Pressure 133/43 (mmHg) O2 Sat by Pulse 94 Oximetry Oxygen Devices in Use Now: None Appearance: Alert, in a chair. In fair spirits. Looks comfortable. Eyes: No Scleral Icterus Neck: NL Appearance and Movements; NL JVP, No Thyroid Enlargement, Masses Respiratory: Symmetrical Chest Expansion and Respiratory Effort, Clear to Auscultation, Clear to Percussion Cardiovascular: NL Sounds; No Murmurs; No JVD, RRR, No Edema, - Extremities: No Edema, No Clubbing, Cyanosis, - Skin: No Rash or Ulcers, No Nodules or Sclerosis, - Neurological: Alert and Oriented x 3, NL Sensation Result Diagrams: 05/02/18 05:31 05/02/18 05:31 Additional Lab and Data: Lab Results 04/23/18 Range/Units 07:32 WBC 13.6 H (3.5-10.8) 10^3/ul RBC 3.18 L (4.00-5.40) 10^6/ul Hgb 9.5 L (14.0-18.0) g/dl Hct 30 L (42-52) % MCV 95 H (80-94) fL MCH 30 (27-31) pg MCHC 31 (31-36) g/dl RDW 14 (10.5-15) % Plt Count 297 (150-450) 10^3/ul MPV 9.5 (7.4-10.4) um3 Neut % (Auto) 56.4 (38-83) % Lymph % (Auto) 33.2 (25-47) % [place] % (Auto) 6.9 (0-7) % Eos % (Auto) 3.1 (0-6) % Baso % (Auto) 0.4 (0-2) % Absolute Neuts (auto) 7.7 (1.5-7.7) 10^3/ul Absolute Lymphs (auto) 4.5 (1.0-4.8) 10^3/ul Absolute Monos (auto) 0.9 H (0-0.8) 10^3/ul Absolute Eos (auto) 0.4 (0-0.6) 10^3/ul Absolute Basos (auto) 0.1 (0-0.2) 10^3/ul Absolute Nucleated RBC 0 10^3/ul Nucleated RBC % 0.1 Microbiology and Other Data: Microbiology 04/24/18 22:00 Transfusion Reaction Culture - Final Blood Bag No Growth Day 5 Transfusion Reaction Gram Stain - Final 04/23/18 08:20 Aerobic Blood Culture - Final Blood Venous No Growth Day 5 Anaerobic Blood Culture - Final No Growth Day 5 04/23/18 08:14 Aerobic Blood Culture - Final Blood Venous No Growth Day 5 Anaerobic Blood Culture - Final No Growth Day 5 04/25/18 08:30 Gastric Occult Blood - Final Gastric Fluid 04/23/18 14:35 Urine Culture - Final Urine No Growth (<1,000 CFU/mL) 04/24/18 12:30 Stool Occult Blood (BRISA) - Final Stool 04/23/18 15:34 Nasal Screen MRSA (PCR) - Final Nasal Mrsa Not Detected Assess/Plan/Problems-Billing Assessment: - Patient Problems (1) ACS (acute coronary syndrome) Current Visit: Yes Status: Acute Code(s): I24.9 - ACUTE ISCHEMIC HEART DISEASE, UNSPECIFIED SNOMED Code(s): 941511867 Comment: AMI with troponin >78. S/P stent x 2 04/23/18. Continue clopidogrel , ASA, statin. (2) GI bleed Current Visit: Yes Status: Acute Code(s): K92.2 - GASTROINTESTINAL HEMORRHAGE, UNSPECIFIED SNOMED Code(s): 51087835 Comment: Erosive esophagitis on EGD. Diverticulosis on colonoscopy 2016. Pantoprazole 40 mg po bid. Hct up to 33 on 05/02. (3) HTN (hypertension) Current Visit: No Status: Chronic Priority: Medium Code(s): I10 - ESSENTIAL (PRIMARY) HYPERTENSION SNOMED Code(s): 36726059 Comment: Reduce amlodipine to 5 mg daily 05/02. (4) Diabetes Current Visit: No Status: Chronic Priority: Medium Code(s): E11.9 - TYPE 2 DIABETES MELLITUS WITHOUT COMPLICATIONS SNOMED Code(s): 85499938 Comment: Increase glargine insulin to 20 U 2100 hrs start 05/02. HISS. CC diet. (5) Debility Current Visit: Yes Status: Acute Code(s): R53.81 - OTHER MALAISE SNOMED Code(s): 66340206 Comment: Patient appropriate for STR. PMRU eval requested.
[2018-05-02] MEDS: Nicotine PATCH 7 MG/24 HR* PATCH TRANSDERM SCH (14:13)
--- NOTE | 2018-05-02 16:51 | PN ---
Progress Note - Progress Note Date of Service: 05/02/18 Note: Time spent on discharge 45 minutes, including exam of patient, discussion with patient, nurse, CM, review of EMR and preparation of discharge documents.
[2018-05-02] MEDS: Atorvastatin* 20 MG TAB PO SCH (17:14)
[2018-05-02] MEDS ORDERED: Insulin GLARGINE(*) 1 UNITS UNIT SUBCUT SCH (21:00)
[2018-05-02] MEDS ORDERED: CMC: Pantoprazole TAB (NF) 40 MG TAB PO SCH (21:00)
[2018-05-02] MEDS: Pantoprazole TAB (NF) 40 MG TAB PO SCH (21:56)
--- NOTE | 2018-05-02 23:57 | TRS ---
CC: Dr[facility] Mcleod; [facility] * TRANSFER SUMMARY: DATE OF ADMISSION: DATE OF TRANSFER: 05/03/18 This is being dictated in advance. HOSPITAL COURSE: This 73-year-old man presented with shortness of breath. Admitting provider noted that the patient was on BiPAP in the emergency room. The patient was felt to have acute hypoxemic respiratory failure, quickly it became evident that he had acute coronary syndrome. His troponin lows rapidly and peaked at over 78. He was brought to the cardiac clinical lab clerk on 04/23/18 the same day as admission, 2 coronary stents were placed. He was on BiPAP for a period of time. He required diuresis for congestive heart failure. His echocardiogram showed ejection fraction of 45% to 50% on 04/28/18. The first echocardiogram on 04/23/18 showed ejection fraction of 40% to 45%, so there was an improvement of about 5% in the ejection fraction in a few days time after stenting. The patient had GI bleeding and endoscopy was performed. He had erosive esophagitis and noted he had a colonoscopy about a year ago. He was given 4 units of packed cells, 2 on the 04/24/18 and 2 units on 04/27/18. He was given intravenous proton pump inhibitor. He is being changed from omeprazole to pantoprazole to prevent interaction with clopidogrel. The clopidogrel was given at the time of stenting and will need to be continued after discussion of the retail associate. He was started on Lantus and insulin lispro coverage for treatment of his diabetes. I note that the patient states he has given himself insulin injections in the past. FINAL DIAGNOSES: 1. Acute coronary syndrome. 2. Gastrointestinal bleed due to erosive esophagitis. 3. Hypertension. 4. Diabetes. 5. Debility. 6. Tobacco use disorder. 7. Advanced kidney disease. MEDICATIONS ON TRANSFER: 1. Acetaminophen 650 mg every 6 hours p.r.n. 2. Albuterol ipratropium 1 nebulizer every 4 hours p.r.n. 3. Amlodipine 5 mg daily. 4. Aspirin 81 mg daily. 5. Atorvastatin 20 mg daily at 5 p.m. 6. Calcium carbonate 500 mg every 4 hours p.r.n. 7. Carvedilol 25 mg b.i.d. 8. Clopidogrel 75 mg daily. 9. Hydralazine 75 mg b.i.d. 10. Glargine insulin 20 units subcu at 9 p.m. daily. 11. Lispro by sliding scale a.c. and h.s. 12. Nicotine patch 7 mg per day. 13. Nitroglycerin 0.4 mg sublingual every 5 minutes p.r.n. 14. Pantoprazole 40 mg b.i.d. for 1 month once daily. 15. Torsemide 40 mg daily. 16. Calcitriol 0.25 mcg daily. I recommend that the patient have a BMP 2 days after arrival, which would be 03/15. He should have daily weights. I am not sure what his maintenance dose of torsemide will end up being, but this can be evaluated with close followup. CONDITION ON TRANSFER: Stable. DISPOSITION: Transfer to [facility], 05/03/18. [id number]/[facility] #: [id number] MTDD
[2018-05-03] MEDS: Carvedilol TAB* 25 MG PO SCH (05:55)
[2018-05-03 08:01] VITALS: BP 123/44
[2018-05-03] MEDS: Pantoprazole TAB (NF) 40 MG TAB PO SCH (08:02)
[2018-05-03] MEDS: Clopidogrel TAB* 75 MG PO SCH (08:02)
[2018-05-03] MEDS: hydrALAZINE TAB* 25 MG PO SCH (08:02)
[2018-05-03] MEDS: Aspirin EC TAB* 81 MG TAB.EC PO SCH (08:02)
[2018-05-03] MEDS: Nicotine PATCH 7 MG/24 HR* PATCH TRANSDERM SCH (08:02)
[2018-05-03] MEDS: Insulin LISPRO* 1 UNITS UNIT SUBCUT SCH (08:13)
[2018-05-03] MEDS ORDERED: Torsemide TAB* 20 MG PO SCH (09:00)
[2018-05-03] MEDS ORDERED: amLODIPine TAB* 5 MG PO SCH (09:00)
== END 2018-05-03 10:24 | DRG 246 ==
LOC: ED 07:25 → ICU 10:46 → MEDTELE 05-01 12:20
PROVIDERS: ADMIT Internal Medicine Critical Care Medicine; ATTEND Internal Medicine
PROC: 027035Z Dilation of Coronary Artery, One Artery with Two Drug-eluting Intraluminal Devices, Percutaneous Approach (ICD-10-PCS; 2018-04-23)
PROC: 4A023N7 Measurement of Cardiac Sampling and Pressure, Left Heart, Percutaneous Approach (ICD-10-PCS; 2018-04-23)
PROC: B2111ZZ Fluoroscopy of Multiple Coronary Arteries using Low Osmolar Contrast (ICD-10-PCS; 2018-04-23)
PROC: 5A09457 Assistance with Respiratory Ventilation, 24-96 Consecutive Hours, Continuous Positive Airway Pressure (ICD-10-PCS; 2018-04-23)
PROC: 4A033BC Measurement of Arterial Pressure, Coronary, Percutaneous Approach (ICD-10-PCS; 2018-04-23)
PROC: 30233N1 Transfusion of Nonautologous Red Blood Cells into Peripheral Vein, Percutaneous Approach (ICD-10-PCS; principal; 2018-04-23 15:00)
PROC: 0DJ08ZZ Inspection of Upper Intestinal Tract, Via Natural or Artificial Opening Endoscopic (ICD-10-PCS; 2018-04-25)
DX: I21.4 Non-ST elevation (NSTEMI) myocardial infarction (principal); J96.01 Acute respiratory failure with hypoxia; E11.10 Type 2 diabetes mellitus with ketoacidosis without coma; K22.11 Ulcer of esophagus with bleeding; I50.23 Acute on chronic systolic (congestive) heart failure; J44.1 Chronic obstructive pulmonary disease with (acute) exacerbation; E87.2 Acidosis; I45.2 Bifascicular block; I13.0 Hypertensive heart and chronic kidney disease with heart failure and stage 1 through stage 4 chronic kidney disease, or unspecified chronic kidney disease; N18.4 Chronic kidney disease, stage 4 (severe); D62 Acute posthemorrhagic anemia; N17.9 Acute kidney failure, unspecified; I25.10 Atherosclerotic heart disease of native coronary artery without angina pectoris; F17.210 Nicotine dependence, cigarettes, uncomplicated; E78.5 Hyperlipidemia, unspecified; K21.9 Gastro-esophageal reflux disease without esophagitis; G43.909 Migraine, unspecified, not intractable, without status migrainosus; F32.9 Major depressive disorder, single episode, unspecified; F41.9 Anxiety disorder, unspecified; E11.22 Type 2 diabetes mellitus with diabetic chronic kidney disease; I16.0 Hypertensive urgency; I25.5 Ischemic cardiomyopathy; R63.0 Anorexia; K59.00 Constipation, unspecified; R53.81 Other malaise; E11.51 Type 2 diabetes mellitus with diabetic peripheral angiopathy without gangrene; K57.90 Diverticulosis of intestine, part unspecified, without perforation or abscess without bleeding; J98.01 Acute bronchospasm; R41.0 Disorientation, unspecified; Z88.1 Allergy status to other antibiotic agents; Z88.0 Allergy status to penicillin; Z87.442 Personal history of urinary calculi; Z95.828 Presence of other vascular implants and grafts; Z98.42 Cataract extraction status, left eye; Z98.41 Cataract extraction status, right eye; Z83.79 Family history of other diseases of the digestive system; Z72.89 Other problems related to lifestyle; Z95.5 Presence of coronary angioplasty implant and graft; Z85.72 Personal history of non-Hodgkin lymphomas; Z82.49 Family history of ischemic heart disease and other diseases of the circulatory system; Z79.82 Long term (current) use of aspirin; Z79.4 Long term (current) use of insulin; Z68.21 Body mass index [BMI] 21.0-21.9, adult; Z79.02 Long term (current) use of antithrombotics/antiplatelets
CPT/HCPCS: 36415; 36600; 71045; 74018; 80048; 80053; 80061; 81003; 81015; 82150; 82270; 82271; 82550; 82553; 82803; 83605; 83690; 83735; 83880; 84100; 84484; 85014; 85018; 85025; 85027; 85347; 85610; 85730; 86078; 86140; 86850; 86900; 86901; 86922; 87040; 87086; 87641; 93005; 93306; 93458; 93970; 94640; 94660; 99156; 99157; 99285; A9270-GY; C1725; C1769; C1876; C1887; C8929; C9600-RC; G8978-GP-CJ; G8979-GP-CI; G8987-GO-CI; G8988-GO-CI; J0456; J0696; J0780; J1630; J1644; J1815; J1940; J2060; J2250; J2270; J2405; J2920; J2930; J3010; J3370; J3490; P9040

== ENCOUNTER 2019-06-25 15:00 | Emergency (ER) | payer MEDICARE ==
--- NOTE | 2019-06-25 15:01 | ED ---
Respiratory - HPI Summary HPI Summary: 74 yo female presents [place] [facility] via EMS with noxious gas exposure. Pt tells me that he was cleaning his bathroom with an ammonia based solution and then added bleach - a plume of gas went up in the air and he inhaled this for 3-5 seconds before exiting and coughing. He neutralized the mixture with water and went outside to get fresh air. He started wheezing and feeling SOB, therefore called EMS. En route his O2% was around 90% and he was placed on 2L NC and O2% increased to 99%. Currently pt admits to wheezing and feeling congested in his lungs with tightness in his chest. He does smoke daily and has a hx of COPD, but takes no inhalers for this. He denies fever, sore throat, edema, chest pain , abdominal pain, n/v. He does have an extensive hx of MT with stenting, DM2, and HTN. He has not taken his medications yet today. He denies headache, dizziness, vision changes, numbness, or tingling. - History of Current Complaint Stated Complaint: SOB PER EMS Time Seen by Provider: 06/25/19 15:00 Hx Obtained From: Patient Onset/Duration: Sudden Onset Initial Severity: Moderate Current Severity: Mild Pain Intensity: 3 Character: Wheezing - Allergy/Home Medications Allergies/Adverse Reactions: Allergies Allergy/AdvReac Type Severity Reaction Status Date / Time levofloxacin Allergy Hives/Diff. Verified 04/23/18 07:36 Breathing/I tching Penicillins Allergy Rash Verified 04/23/18 07:36 Home Medications: Home Medications Atorvastatin* [Lipitor 20 MG*] 20 mg PO DAILY 06/25/19 [History Confirmed ] Carvedilol TAB* [Coreg TAB*] 25 mg PO DAILY 06/25/19 [History Confirmed 06/25/19 ] Ferrous Sulfate TAB* 325 mg PO DAILY 06/25/19 [History Confirmed 06/25/19] Insulin Detemir [Levemir Flextouch] 30 unit SUBCUT QAM 06/25/19 [History Confirmed 06/25/19] Insulin Lispro [Humalog Kwikpen U-100] 0 - 9 unit SUBCUT BID 06/25/19 [History Confirmed 06/25/19] Nitroglycerin TAB 0.4 MG* 0.4 mg SL Q5M PRN 06/25/19 [History Confirmed 06/25/19 ] hydrALAZINE TAB* [Apresoline TAB*] 75 mg PO QAM 06/25/19 [History Confirmed ] PMH/Surg Hx/FS Hx/Imm Hx Endocrine/Hematology History: Reports: Hx Diabetes Cardiovascular History: Reports: Hx Hypertension, Other Cardiovascular Problems/ Disorders - HIGH CHOLESTEROL Respiratory History: Reports: Hx Chronic Obstructive Pulmonary Disease (COPD), Other Respiratory Problems/Disorders - ASPIRATION Denies: Hx Asthma GI History: Reports: Hx Gastroesophageal Reflux Disease Denies: Other GI Disorders History: Reports: Hx Chronic Renal Failure - stage IV since 2012, Hx Kidney Stones - current Denies: Hx Dialysis, Other Problems/Disorders Musculoskeletal History: Denies: Other Musculoskeletal History Sensory History: Reports: Hx Cataracts - VINNIE Denies: Hx Contacts or Glasses - GLASSES, Hx Hearing Aid Opthamlomology History: Reports: Hx Cataracts - VINNIE Denies: Hx Contacts or Glasses - GLASSES Neurological History: Reports: Hx Migraine - IN THE PAST Denies: Hx Dementia, Hx Seizures, Other Neuro Impairments/Disorders Psychiatric History: Reports: Hx Anxiety - PAST, Hx Depression - PAST - Surgical History Surgery Procedure, Year, and Place: LEFT SHOULDER , 1990, [facility]. [place]ACT[place] [facility]. HYDROCELE REPAIR, 1970S. ARM FX, 1954. TONSILECTOMY A CHILD WITH ADENOIDECTOMY. URETERAL STENT 02/2016, [facility] RIGHT SIDE Hx Anesthesia Reactions: No - Family History Known Family History: Positive: Other Family History: hiatal hernia - mother - Social History Alcohol Use: Rare Alcohol Amount: 3 PER YEAR Hx Substance Use: No Substance Use Type: Reports: None Hx Tobacco Use: Yes Smoking Status (MU): Heavy Every Day Tobacco Smoker Type: Cigarettes Amount Used/How Often: 2 PACKS A DAY Length of Time of Smoking/Using Tobacco: pack and a half a day Have You Smoked in the Last Year: Yes Review of Systems Constitutional: Negative Eyes: Negative ENT: Negative Cardiovascular: Negative Positive: Shortness Of Breath, Cough Gastrointestinal: Negative Genitourinary: Negative Musculoskeletal: Negative Skin: Negative Neurological: Negative Psychological: Normal All Other Systems Reviewed And Are Negative: No Physical Exam - Summary Physical Exam Summary: GENERAL: NAD. WDWN. No pain distress. SKIN: No rashes, sores, lesions, or open wounds. HEENT: Head: AT/NC Eyes: Conjunctiva clear without inflammation or discharge. Ears: Hearing grossly normal. TMs intact, no bulging, erythema, or edema. Nose: Nasal mucosa pink and moist. NTTP maxillary and frontal sinus. Throat: Posterior oropharynx without exudates, erythema, or tonsillar enlargement. Uvula midline. NECK: Supple. Nontender. No lymphadenopathy. CHEST: Moderate wheezing throughout. No r/r. No accessory muscle use. Breathing comfortably and in no distress. CV: RRR. Pulses intact. Cap refill <2seconds NEURO: Alert. PSYCH: Age appropriate behavior. Triage Information Reviewed: Yes Vital Signs On Initial Exam: Vital Signs (72 hours) 06/25/19 06/25/19 06/25/19 15:01 15:06 15:07 Temperature 98.1 F Pulse Rate 71 72 71 Respiratory 18 Rate Blood Pressure 228/107 228/107 (mmHg) O2 Sat by Pulse 97 97 98 Oximetry 06/25/19 06/25/19 06/25/19 15:39 15:51 15:59 Temperature Pulse Rate 71 74 72 Respiratory 15 14 Rate Blood Pressure 213/77 (mmHg) O2 Sat by Pulse 100 97 100 Oximetry 06/25/19 06/25/19 06/25/19 16:00 16:04 16:07 Temperature Pulse Rate 72 74 Respiratory Rate Blood Pressure 199/85 206/74 (mmHg) O2 Sat by Pulse 100 99 Oximetry 06/25/19 06/25/19 06/25/19 16:37 17:00 17:06 Temperature Pulse Rate 75 77 76 Respiratory Rate Blood Pressure 144/60 138/49 (mmHg) O2 Sat by Pulse 99 99 99 Oximetry Vital Signs Reviewed: Yes Procedures - Sedation Patient Received Moderate/Deep Sedation with Procedure: No Diagnostics - Laboratory Lab Results: Laboratory Tests 06/25/19 06/25/19 06/25/19 17:05 17:05 17:05 WBC 7.0 RBC 2.79 L Hgb 9.2 L Hct 28 L MCV 100 H MCH 33 H MCHC 33 RDW 15 Plt Count 157 MPV 9.6 Neut % (Auto) 85.4 Lymph % (Auto) 8.9 [place] % (Auto) 4.3 Eos % (Auto) 1.0 Baso % (Auto) 0.4 Absolute Neuts (auto) 6.0 Absolute Lymphs (auto) 0.6 L Absolute Monos (auto) 0.3 Absolute Eos (auto) 0.1 Absolute Basos (auto) 0.0 Absolute Nucleated RBC 0.0 Nucleated RBC % 0.0 D-Dimer, Quantitative Sodium 138 Potassium 4.8 Chloride 110 Carbon Dioxide 20 L Anion Gap 8 BUN 45 H Creatinine 2.95 H Est GFR ( Amer) 25.3 Est GFR (Non-Af Amer) 20.9 BUN/Creatinine Ratio 15.3 Glucose 134 H Lactic Acid 0.6 Calcium 9.5 Magnesium 1.9 Total Bilirubin 0.40 AST 21 ALT 21 Alkaline Phosphatase 74 Troponin I 0.02 Total Protein 7.0 Albumin 3.9 Globulin 3.1 Albumin/Globulin Ratio 1.3 06/25/19 06/25/19 17:05 18:54 WBC RBC Hgb Hct MCV MCH MCHC RDW Plt Count MPV Neut % (Auto) Lymph % (Auto) [place] % (Auto) Eos % (Auto) Baso % (Auto) Absolute Neuts (auto) Absolute Lymphs (auto) Absolute Monos (auto) Absolute Eos (auto) Absolute Basos (auto) Absolute Nucleated RBC Nucleated RBC % D-Dimer, Quantitative 232 H Sodium Potassium Chloride Carbon Dioxide Anion Gap BUN Creatinine Est GFR ( Amer) Est GFR (Non-Af Amer) BUN/Creatinine Ratio Glucose Lactic Acid Calcium Magnesium Total Bilirubin AST ALT Alkaline Phosphatase Troponin I 0.01 Total Protein Albumin Globulin Albumin/Globulin Ratio Result Diagrams: 06/25/19 17:05 06/25/19 17:05 Lab Statement: Any lab studies that have been ordered have been reviewed, and results considered in the medical decision making process. - Radiology CXR Radiology Interpretation Completed By: Radiologist Summary of Radiographic Findings: IMPRESSION: HYPERINFLATION, CONSISTENT WITH COPD. NO ACTIVE CARDIOPULMONARY DISEASE. - EKG 1 EKG Comparison: Other Summary of EKG Findings: 71 bpm NSR. RBBB. No STEMI as read by Dr. Blackwell Disposition - Course Course Of Treatment: Discussed case with Poison Control and they recommend supportive treatment and/or albuterol. EKG obtained and no STEMI. CXR as above. He was given duoneb treatment x2 and had significant improvement of his wheezing and breathing. He was weaned off O2 and remained with O% ~98% on RA. He continued to complain of chest tightness and feeling tired. I discussed the case with Dr. Blackwell and he recommends cardiac workup. BP was elevated today, pt states he did not take his medications this morning - thus he was given 10mg of hydralazine in the ED with great improvement of his BP. Labs reveal chronic anemia - pt does not take his iron supplement because he forgets...encouraged to take this as prescribed. Renal function chronic and appears to be his baseline. Troponin negative x2. Pt remained >98% on RA without resp distress or wheezing. Chest tightness improved. He is feeling better. Advised to rest and refrain from using bleach and ammonia together. Recheck with PCP this week. - Diagnoses Provider Diagnoses: Chlorine gas exposure, Wheezing, Chest tightness Discharge ED - Sign-Out/Discharge Documenting (check all that apply): Patient Departure - Discharge Plan Condition: Stable Disposition: HOME Patient Education Materials: Bronchospasm (ED) Referrals: Jignesh Mcleod MD [Primary Care Provider] - Additional Instructions: If you develop a fever, shortness of breath, chest pain, new or worsening symptoms - please call your PCP or go to the ED immediately. Your blood pressure was high at todays visit. Please see your primary provider within 4 weeks for recheck and re-evaluation. Your labwork today showed that you have nursing home anemia - I recommend that you remember to take your iron supplements as prescribed. Please rest and take deep breaths. Avoid mixing bleach and ammonia. I recommend that you schedule an appointment for a recheck with your primary doctor this week - Billing Disposition and Condition Condition: STABLE Disposition: Home
[2019-06-25] MEDS ORDERED: Albuterol/Ipratropium NEB.SOL* Albuterol 2.5 MG/Ipratropium 0.5 MG 3 ML INH ONE ×2 (15:05→15:42)
[2019-06-25] MEDS ORDERED: hydrALAZINE IV* 20 MG/ML VIAL IV SLOW PU ONE (15:15)
[2019-06-25] MEDS ORDERED: NS 0.9% 1000 ML** 1,000 ML IV ONE (16:48)
[2019-06-25 17:14] LABS: ABS Eosinophils 0.1 10^3/ul (0-0.6); ABS Lymphocytes 0.6 10^3/ul (1.0-4.8); ABS Monocytes 0.3 10^3/ul (0-0.8); Hematocrit 28 % (42-52); Hemoglobin 9.2 g/dL (14.0-18.0); Lymphocyte % 8.9 %; Mean Corpuscular HGB Conc 33 g/dL (31-36); Mean Corpuscular Hemoglobin 33 pg (27-31); Mean Corpuscular Volume 100 fL (80-94); Mean Platelet Volume 9.6 fL (7.4-10.4); Platelet Count 157 10^3/uL (150-450); Red Blood Count 2.79 10^6 /uL (4.18-5.48); Red Cell Distribution Width 15 % (10-15)
[2019-06-25 17:44] LABS: Albumin 3.9 g/dL (3.2-5.2); Albumin/Globulin Ratio 1.3 (1-3); BUN/Creatinine Ratio 15.3 (8-20); Calcium 9.5 mg/dL (8.6-10.3); EGFR African American 25.3 (>60); EGFR Non-African American 20.9 (>60); Globulin 3.1 g/dL (2-4); Magnesium 1.9 mg/dL (1.9-2.7); Potassium 4.8 mmol/L (3.5-5.0); Total Bilirubin 0.4 mg/dL (0.2-1.0)
[2019-06-25 17:45] LABS: Troponin I 0.02 ng/mL (<0.04)
[2019-06-25 19:43] VITALS: BP 175/60
== END 2019-06-25 19:42 | disposition home or self-care (01) ==
LOC: ED 15:00
DX: T54.3X1A Toxic effect of corrosive alkalis and alkali-like substances, accidental (unintentional), initial encounter (principal); R06.2 Wheezing; R07.89 Other chest pain; Y92.002 Bathroom of unspecified non-institutional (private) residence as the place of occurrence of the external cause; E11.22 Type 2 diabetes mellitus with diabetic chronic kidney disease; I12.9 Hypertensive chronic kidney disease with stage 1 through stage 4 chronic kidney disease, or unspecified chronic kidney disease; N18.4 Chronic kidney disease, stage 4 (severe); E78.00 Pure hypercholesterolemia, unspecified; J44.9 Chronic obstructive pulmonary disease, unspecified; K21.9 Gastro-esophageal reflux disease without esophagitis; F41.9 Anxiety disorder, unspecified; F32.9 Major depressive disorder, single episode, unspecified; F17.210 Nicotine dependence, cigarettes, uncomplicated; Z79.4 Long term (current) use of insulin; Z79.899 Other long term (current) drug therapy; Z88.1 Allergy status to other antibiotic agents; Z88.0 Allergy status to penicillin
CPT/HCPCS: 36415; 71046; 80053; 83605; 83735; 84484; 85025; 85379; 93005; 96374; 99284; A9270-GY; J0360

== ENCOUNTER 2019-10-10 21:12 | Inpatient (IN) | payer MEDICARE ==
--- NOTE | 2019-10-10 21:46 | ED ---
Shortness of Breath - HPI Summary HPI Summary: This pt is a 74 Y/O M brought to [facility] by EMS for a CC of SOB that has been present since waking up. He states that he had a fever, chills, nausea, and decreased appetite. He also states that his cough has been productive with think mucus. He states that he is fatigued from his inability to breath. Per EMS his O2 SAT was at 77% on arrival to [facility]. He states that he was present at [facility] and was discharged on Tuesday10/08/2019 after being admitted. He denies any vomiting, CP, headaches, and edema. He has no aggravating factors. He states that the increase to 15L O2 has been alleviating his factors. He has a PMHx of CHF, CAD, and COPD. - History of Current Complaint Chief Complaint: EDShortnessOfBreath Time Seen by Provider: 10/10/19 21:36 Hx Obtained From: Patient Onset/Duration: Sudden Onset, Still Present Timing: Constant Current Severity: Severe Dyspnea At: Rest Aggravating Factors: Nothing Alleviating Factors: Oxygen - 15 L Associated Signs & Symptoms: Negative - vomiting, CP, headaches, and edema., Cough (Productive), Fever, Chills Related History: Similar Episode - was dischargedd on 10/08/2019 for a similar Sx. - Allergy/Home Medications Allergies/Adverse Reactions: Allergies Allergy/AdvReac Type Severity Reaction Status Date / Time levofloxacin Allergy Hives/Diff. Verified 04/23/18 07:36 Breathing/I tching Penicillins Allergy Rash Verified 04/23/18 07:36 Home Medications: Home Medications Calcitriol CAP* [Rocaltrol CAP*] 0.25 mcg PO DAILY 10/10/19 [History Confirmed 10/10/19] Omeprazole CAP (NF) [Prilosec CAP* 20 MG] 20 mg PO DAILY 10/10/19 [History Confirmed 10/10/19] PMH/Surg Hx/FS Hx/Imm Hx Previously Healthy: Yes Endocrine/Hematology History: Reports: Hx Diabetes Denies: Hx Thyroid Disease, Hx Anemia Cardiovascular History: Reports: Hx Congestive Heart Failure, Hx Coronary Artery Disease, Hx Hypercholesterolemia, Hx Hypertension, Hx Myocardial Infarction, Other Cardiovascular Problems/Disorders - HIGH CHOLESTEROL Denies: Hx Aneurysm, Hx Angina, Hx Angioplasty, Hx Auto Implanted Cardiovert Defib, Hx Cardiac Arrest, Hx Cardiomegaly, Hx Congenital Heart Disease, Hx Deep Vein Thrombosis, Hx Embolism, Hx Peripheral Vascular Disease Respiratory History: Reports: Hx Chronic Obstructive Pulmonary Disease (COPD), Other Respiratory Problems/Disorders - ASPIRATION, respiratory failure Denies: Hx Asthma GI History: Reports: Hx Gastroesophageal Reflux Disease Denies: Other GI Disorders History: Reports: Hx Chronic Renal Failure - stage IV since 2012, Hx Kidney Stones - current Denies: Hx Dialysis, Other Problems/Disorders Musculoskeletal History: Denies: Hx Arthritis, Hx Osteoporosis, Other Musculoskeletal History Sensory History: Reports: Hx Cataracts - VINNIE, Hx Hearing Problem Denies: Hx Contacts or Glasses - GLASSES, Hx Hearing Aid Opthamlomology History: Reports: Hx Cataracts - VINNIE Denies: Hx Contacts or Glasses - GLASSES Neurological History: Reports: Hx Migraine - IN THE PAST Denies: Hx Dementia, Hx Developmental Delay, Hx Headaches, Hx Nerve Disease, Hx Seizures, Hx Spinal Cord Injury, Hx Transient Ischemic Attacks (TIA), Other Neuro Impairments/Disorders Psychiatric History: Reports: Hx Anxiety - PAST, Hx Depression - PAST - Cancer History Hx Chemotherapy: No Hx Radiation Therapy: No - Surgical History Surgical History: Yes Surgery Procedure, Year, and Place: LEFT SHOULDER , 1990, [place]. VININE CATARACTS, [facility], 2010. HYDROCELE REPAIR, 1970S. ARM FX, 1954. TONSILECTOMY A CHILD WITH ADENOIDECTOMY. URETERAL STENT 02/2016, [facility] RIGHT SIDE Hx Anesthesia Reactions: No - Immunization History Date of Influenza Vaccine: none Immunizations Up to Date: Yes Infectious Disease History: No Infectious Disease History: Denies: Traveled Outside the [place] in Last 30 Days - Family History Known Family History: Positive: Hypertension, Other Family History: hiatal hernia - mother - Social History Occupation: Retired Lives: Alone Alcohol Use: Rare Alcohol Amount: 3 PER YEAR Hx Substance Use: No Substance Use Type: Reports: None Hx Tobacco Use: Yes Smoking Status (MU): Heavy Every Day Tobacco Smoker Type: Cigarettes Amount Used/How Often: 2 PACKS A DAY Length of Time of Smoking/Using Tobacco: pack and a half a day Have You Smoked in the Last Year: Yes Review of Systems Positive: Fever, Chills Negative: Chest Pain Positive: Shortness Of Breath, Cough - productive Positive: Nausea. Negative: Vomiting Negative: Edema Negative: Headache All Other Systems Reviewed And Are Negative: Yes Physical Exam - Summary Physical Exam Summary: Appearance: Well-appearing, Well-nourished, lying in bed comfortably Skin: Warm, dry, no obvious rash Eyes: sclera anicteric, no conjunctival pallor ENT: mucous membranes moist, pharynx appears normal Neck: Supple, nontender Respiratory: Clear to auscultation, no signs of respiratory distress Cardiovascular: Normal S1, S2. No murmurs. Normal distal pulses in tibial and radial bilaterally. Abdomen: Soft, nontender, normal active bowel sounds present Musculoskeletal: Normal, Strength/ROM Intact, No peripheral edema Neurological: A&Ox3, awake and alert, mentation is normal, speech is fluent and appropriate Psychiatric: affect is normal, does not appear anxious or depressed Triage Information Reviewed: Yes Vital Signs On Initial Exam: Initial Vitals Temp Pulse Resp BP Pulse Ox 99.4 F 75 36 190/74 94 10/10/19 21:15 10/10/19 21:15 10/10/19 21:15 10/10/19 21:15 10/10/19 21:15 Vital Signs Reviewed: Yes Procedures - Sedation Patient Received Moderate/Deep Sedation with Procedure: No Diagnostics - Vital Signs Vital Signs Temp Pulse Resp BP Pulse Ox 10/10/19 21:21 76 190/74 94 10/10/19 21:18 76 96 10/10/19 21:15 99.4 F 75 36 190/74 94 - Laboratory Result Diagrams: 10/11/19 05:54 10/11/19 05:54 Lab Statement: Any lab studies that have been ordered have been reviewed, and results considered in the medical decision making process. - Radiology CXR Radiology Interpretation Completed By: ED Physician Summary of Radiographic Findings: Increased innerstitial edema when compared to previous film. Pending offical review. - EKG 2214 Cardiac Rate: NL - 72 BPM EKG Rhythm: Sinus Rhythm ST Segment: Normal Summary of EKG Findings: EKG at 2215 reveals normal sinus rhythm with rate of 72 BPM, with a RBBB and no STEMI. This EKG was reviewed and interpreted by Dr. Fox at 221710/10/2019. Course/Dx - Course Course Of Treatment: This pt is a 74 Y/O M brought to [facility] by EMS for a CC of SOB that has been present since waking up. He states that he had a fever, chills , nausea, and decreased appetite. He also states that his cough has been productive with think mucus. He states that he is fatigued from his inability to breath. Per EMS his O2 SAT was at 77% on arrival to [facility]. He states that he was present at [facility] and was discharged on Tuesday10/08/2019 after being admitted. His PE is normal and without peripheal edema. EKG at 2215 reveals normal sinus rhythm with rate of 72 BPM, with a RBBB and no STEMI. His laboratory results have abnormalities in the following areas: RBC 2.7, Hgb 8.3, Hct 26, MCV 96, RDW 16, Lymphs of .2, Sodium, Chloride 99, Carbon Dioxide 20, BUN 68, Creatinine 3.73, Glucose 349, Alkaline Phosphatase 136, and Total protein 6.1. His Troponin is a .07 and B-natriuretic peptides are over 1300. His CXR shows: Increased innerstitial edema when compared to previous film. He was admitted by Dr. Betancourt at 2332 with a Dx of CHF for further treatments. - Diagnoses Provider Diagnoses: CHF (congestive heart failure) - Physician Notifications Discussed Care of Patient With: Adan Betancourt Time Discussed With Above Provider: 23:33 Instructed by Provider To: Admit As Inpatient Admit/Transition Orders Completed By ED Provider: Yes Discharge ED - Sign-Out/Discharge Documenting (check all that apply): Patient Departure - admitted - Discharge Plan Condition: Stable Disposition: ADMITTED TO [facility] - Billing Disposition and Condition Condition: STABLE Disposition: Admitted to [facility] - Attestation Statements Document Initiated by Dao: Yes Documenting Scribe: Marv Carias Provider For Whom Dao is Documenting (Include Credential): Selvin Fox MD Scribe Attestation: Marv Alvarez scribed for Selvin Fox MD on 10/12/19 at 0236. Scribe Documentation Reviewed: Yes Provider Attestation: The documentation as recorded by the Marv fisher accurately reflects the service I personally performed and the decisions made by , Selvin Fox MD Status of Scribe Document: Viewed
--- OUTSIDE RECORDS SUMMARY | 2019-10-10 22:35 | XMS REPORT | Continuity of Care Document ---
:1945 External Reference #:[id number] Author Name Sabi Olsen MD, [facility], [facility] (transmitted by agent of provider Jocelyne Weber) Address [address] [place] [address] Problems Active Problems Provider Date Acute renal failure syndrome Rola Amezcua DO Onset: 06/17/2018 Hypo-osmolality and or hyponatremia Rola Amezcua DO Onset: 06/17/2018 Anemia Rola Amezcua DO Onset: 06/17/2018 Chronic kidney disease Rola Amezcua DO Onset: 06/17/2018 Type 2 diabetes mellitus Rola Amezcua DO Onset: 06/17/2018 Gastrointestinal hemorrhage Grant Mayo M.D. Onset: 06/18/2018 Disorder of kidney and/or ureter Grant Mayo M.D. Onset: 06/18/2018 Polymyalgia rheumatica Grant Mayo M.D. Onset: 06/18/2018 Atherosclerotic heart disease of [place] Grant Mayo M.D. Onset: 2017 coronary artery without angina pectoris Long-term current use of insulin Grant Mayo M.D. Onset: 06/18/2018 Ulcer of esophagus June Rolly, GOLF SUPERINTENDENT Onset: 06/19/2018 Chronic systolic (congestive) heart failure June Rolly, GOLF SUPERINTENDENT Onset: 2017 Chronic kidney disease stage 4 June Rolly, GOLF SUPERINTENDENT Onset: 06/19/2018 Hypertensive heart and chronic kidney disease June Rolly, GOLF SUPERINTENDENT Onset: 2017 with heart failure and stage 1 through stage 4 chronic kidney disease, or unspecified chronic kidney disease Iron deficiency anemia June Rolly, GOLF SUPERINTENDENT Onset: 06/22/2018 Social History Type Date Description Comments Sex Unknown Allergies, Adverse Reactions, Alerts Active Allergies Reaction Severity Comments Date Penicillin 05/18/2018 Levofloxacin 05/18/2018 Penicillins 07/31/2019 Medications Active Medications SIG Qnty Indications Ordering Date Provider Torsemide 2 tabs by mouth Unknown 20mg Tablets every day Pantoprazole Sodium 1 by mouth every Unknown 40mg day Tablets DR Nitroglycerin 1 tab sublingual Unknown 0.4mg for chest pain prn Tablets Sub Insulin Pen Fletcher inject 1 beneath Unknown 29GX12.7mm skin daily 29G X 12.7mm Misc Levemir Flextouch inject 10 units Unknown beneath skin once a 100Unit/ML Solution day Pen-Inject Hydralazine HCL 3 tabs PO twice a Unknown (Apresoline) day 25mg Tablets Ferrous Sulfate 1 by mouth every Unknown 325(65Fe) other day mg Tablets Clopidogrel Bisulfate 1 by mouth every Unknown day 75mg Tablets Carvedilol 1 tab by mouth Unknown 25mg Tablets twice a day w/ meals Calcitriol 1 cap by mouth Unknown 0.25mcg every day Capsules Atorvastatin Calcium take 1 tablet PO Unknown 20mg daily Tablets Aspir-81 1 by mouth every Unknown 81mg Tablets DR day Norvasc 1 by mouth every Unknown 5mg Tablets day Potassium Unknown Miralax Unknown Morphine Sulfate prn Unknown Metoprolol Tartrate 1 by mouth twice a Unknown 25mg day Tablets Albuterol Sulfate Unknown Immunizations Description No Information Available Vital Signs Date Vital Result Comment 06/05/2018 2:51pm Heart Rate 64 /min BP Systolic 140 mmHg BP Diastolic 82 mmHg Respiratory Rate 16 /min Body Temperature 96.0 F O2 % BldC Oximetry 96 % Results Description No Information Available Procedures Date Code Description Status 06/15/2017 [id number] Colonoscopy Completed 05/15/2010 [id number] Colonoscopy Completed Medical Devices Description No Information Available Encounters Description No Information Available Assessments Description No Information Available Plan of Treatment No Information Available Functional Status Description No Information Available Mental Status Description No Information Available Referrals Description No Information Available
--- OUTSIDE RECORDS SUMMARY | 2019-10-10 22:35 | XMS REPORT | Continuity of Care Document ---
:1945 External Reference #:[id number] Author Name Sabi Olsen MD, [facility], [facility] (transmitted by agent of provider Jocelyne Weber) Address [address] [place] [address] Problems Active Problems Provider Date Acute renal [...] M.D. Onset: 06/18/2018 Atherosclerotic heart disease of [place] Grant Mayo M.D. Onset: 2017 coronary artery without angina pectoris Long-term current use of insulin Grant Mayo M.D. Onset: 06/18/2018 Ulcer of esophagus June Rolly, PRIMER PRESS OPERATOR Onset: 06/19/2018 Chronic systolic (congestive) heart failure June Rolly, PRIMER PRESS OPERATOR Onset: 2017 Chronic kidney disease stage 4 June Rolly, PRIMER PRESS OPERATOR Onset: 06/19/2018 Hypertensive heart and chronic kidney disease June Rolly, PRIMER PRESS OPERATOR Onset: 2017 with heart failure and stage 1 through stage 4 chronic kidney disease, or unspecified chronic kidney disease Iron deficiency anemia June Rolly, PRIMER PRESS OPERATOR Onset: 06/22/2018 Social History Type Date Description [...] chest pain prn Tablets Sub Insulin Pen Holder inject 1 beneath Unknown 29GX12.7mm skin daily [...] Available Procedures Date Code Description Status 06/15/2017 [id number] Colonoscopy Completed 05/15/2010 [id number] Colonoscopy Completed Medical Devices Description No Information Available Encounters Description No Information Available Assessments Description No Information Available Plan of Treatment No Information Available Functional Status Description No Information Available Mental Status Description No Information Available Referrals Description No Information Available
[2019-10-10 22:51] LABS: ABS Lymphocytes 0.2 10^3/ul (1.0-4.8); ABS Monocytes 0.3 10^3/ul (0-0.8); ABS Neutrophils 4.2 10^3/ul (1.5-7.7); Hematocrit 26 % (42-52); Hemoglobin 8.3 g/dL (14.0-18.0); Lymphocyte % 4.4 %; Mean Corpuscular HGB Conc 32 g/dL (31-36); Mean Corpuscular Hemoglobin 31 pg (27-31); Mean Corpuscular Volume 96 fL (80-94); Mean Platelet Volume 10.1 fL (7.4-10.4); Platelet Count 158 10^3/uL (150-450); Red Cell Distribution Width 16 % (10-15); White Blood Count 4.8 10^3/uL (3.5-10.8)
[2019-10-10 23:09] LABS: ALT 49 U/L (7-52); AST 35 U/L (13-39); Albumin 3.5 g/dL (3.2-5.2); Albumin/Globulin Ratio 1.3 (1-3); Alkaline Phosphatase 136 U/L (34-104); BUN/Creatinine Ratio 18.2 (8-20); Blood Urea Nitrogen 68 mg/dL (6-24); CO2 Carbon Dioxide 20 mmol/L (22-32); Calcium 8.2 mg/dL (8.6-10.3); Chloride 99 mmol/L (101-111); EGFR African American 19.3 (>60); EGFR Non-African American 15.9 (>60); Globulin 2.6 g/dL (2-4); Glucose 349 mg/dL (70-100); Sodium 130 mmol/L (135-145); Total Protein 6.1 g/dL (6.4-8.9)
[2019-10-10 23:10] LABS: Anion Gap 11 mmol/L (2-11); Potassium 5.2 mmol/L (3.5-5.0)
[2019-10-10 23:14] LABS: Troponin I 0.07 ng/mL (<0.03)
[2019-10-10] MEDS ORDERED: Furosemide IV* 10 MG/ML VIAL (40 MG) IV ONE (23:28)
[2019-10-11] MEDS ORDERED: Nitroglycerin TAB 0.4 MG* 0.4 MG TAB SL PRN (00:43)
[2019-10-11 01:09] LABS: Influenza B Molecular POSITIVE (Negative)
[2019-10-11] MEDS ORDERED: Dextrose 50% Syringe 50 ML* 25 GM/50 ML SYRINGE IV PUSH PRN (01:09)
[2019-10-11] MEDS ORDERED: Ferric Gluconate IV* 125 MG in NS 0.9% 100 ML* 100 ML IVPB ONE (02:00)
--- NOTE | 2019-10-11 03:52 | HP ---
CC: Dr. Jignesh Mcleod; Dr. Daniel Beck * ADMISSION HISTORY AND PHYSICAL: DATE OF ADMISSION: 10/11/19 PRIMARY CARE PHYSICIAN: Dr. Jignesh Mcleod. SHOT LIGHTER: Dr. Daniel Beck. CHIEF COMPLAINT: Shortness of breath. HISTORY OF PRESENT ILLNESS: This is a 74-year-old gentleman with past medical history of COPD, secondary to smoking; diabetes; hypertension; ischemic cardiomyopathy with history of PCI in the past; congestive heart failure with last EF noted to be 40% to 45%, who was recently discharged 2 days ago with congestive heart failure with palliative care followup. The patient lives alone and this morning he woke up and stated that he was having severe shortness of breath. Upon further questioning, he states that his shortness of breath was present even on the day of discharge, but it is much worse today. He has been having cough, which is productive of thick mucus. He denies any other fever, chills, but does state that his mobility is limited due to his severe shortness of breath and feels much more fatigued and weak. He denies any other chest pain at this point. He was noted to be severely hypoxic by the EMS. The patient otherwise denies any nausea, vomiting, any abdominal pain, any diarrhea or change in bowel habit, any urinary burning sensation or pain with urination. PAST MEDICAL HISTORY: As mentioned, 1. History of hypertension. 2. Diabetes. 3. PCI in 2018. 4. Congestive heart failure with EF of 40% to 45% with inferior wall motion abnormality. 5. He also has history of lymphoma. PAST SURGICAL HISTORY: Includes, 1. Cataract surgery. 2. PCIs as mentioned. HOME MEDICATIONS: 1. Atorvastatin 20 mg oral daily. 2. Calcitriol 0.25 mcg oral daily. 3. Coreg 25 mg oral daily. 4. Ferrous sulfate 325 mg oral daily. 5. Hydralazine 75 mg every morning. 6. Levemir 30 units subcutaneous daily. 7. Lispro sliding scale. 8. Nitroglycerin sublingual on a p.r.n. basis. 9. Amlodipine 5 mg oral daily. 10. Furosemide 20 mg every other day. 11. Omeprazole 20 mg p.o. b.i.d.. ALLERGIES: The patient is documented to be allergic to LEVOFLOXACIN and PENICILLIN. FAMILY HISTORY: The patient has family history of 2 sisters with diabetes. Brother, age 79, has no coronary artery disease. Father in his 60s and mother in the 70s; both also had diabetes. SOCIAL HISTORY: He lives alone and has a drapery inspector who brings him food, Landy Combs. He is single, never . His closest relative is Danielle Bonilla, who is his sister, and he designates her as healthcare proxy. He had previously signed a DNR/DNI and limited interventions including no feeding tube , but okay with use of antibiotics and sending to the hospital, which was done last week on 10/03/19 and he still agrees with the same exact end of life care. REVIEW OF SYSTEMS: A 14-point review of systems did not reveal any new information other than what is mentioned in the HPI. PHYSICAL EXAMINATION VITAL SIGNS: Temperature was recorded at 99.4, BP was noted to be 169/58, heart rate 67, respiration rate 22, saturating 97% on 6 L nasal cannula. GENERAL: The patient is awake, alert and oriented x3, was noted to be in moderate respiratory distress. HEENT: Atraumatic, normocephalic. Bilateral pupils reactive. Oral mucosa was moist. NECK: Supple. No jugular venous distention. HEART EXAM: S1, S2. Regular rate and rhythm. LUNGS: The patient had bibasilar crackles. ABDOMEN: Soft, nontender, nondistended. EXTREMITIES: I did not appreciate any cyanosis, clubbing, or edema. LABORATORY DATA: CBC shows normal white count. Hemoglobin and hematocrit shows mild anemia with hemoglobin of 8.3, hematocrit of 26, platelet count was normal at 128. Comprehensive metabolic panel shows elevated potassium at 5.2, sodium decreased at 130, bicarb noted to be low at 20, BUN elevated at 68, creatinine 3.73, random glucose elevated at 349. Troponin was minimally elevated at 0.07. B- MATT was noted be elevated at greater than 1300. LFTs within normal limits. Influenza A and B are both pending. Portable chest x-ray shows some congestive changes, more prominent on the right base, but also present bilaterally. When compared to his previous x-ray, the congestion seems to be minimally improved. Official read by Radiology is still pending. EKG shows sinus rhythm at 72 beats per minute without any ST elevation. When compared to his old EKG from 12/01/18, essentially unchanged. IMPRESSION: This is a 74-year-old gentleman with history of systolic heart failure, hypertension, chronic obstructive pulmonary disease, diabetes, chronic renal insufficiency stage 4, came in due to worsening shortness of breath. ASSESSMENT AND PLAN: 1. Acute on chronic systolic heart failure with questionable noncompliance. Overall prognosis is still poor. We will start the patient on Lasix. The patient is still requesting evaluation by Palliative Care and was interested in placement at hospice facility as overall prognosis is still very poor in this patient and he also still continues to refuse any dialysis and refuses any cardiac cath as well. 2. Uncontrolled diabetes. We will restart his diabetic regimen and continue with fingerstick monitoring and the fingerstick sliding scale. 3. History of dyslipidemia. Restart home medications. 4. History of hypertension with uncontrolled blood pressure. We will restart his home blood pressure medications. 5. Chronic kidney disease, stage 4. Creatinine stable with minimally elevated potassium. We will add furosemide, which should improve the potassium. 6. Elevated troponin. Likely due to congestive heart failure. When compared to his old troponin from last visit, it is overall much improved. 7. Anemia. Likely anemia of chronic disease with a component of severe iron deficiency anemia based on his old labs showing iron saturation of roughly 10%. We will restart his iron and also add one time use of ferrous gluconate. 8. DVT prophylaxis. We will start the patient on sequential compression device. As he is very anemic, heparin would be avoided. 9. Code status. DNR/DNI. We will consider palliative consult and case management evaluation for discharge planning. [id number]/[facility] #: [id number] MANGO
[2019-10-11 06:27] LABS: ABS Lymphocytes 0.6 10^3/ul (1.0-4.8); ABS Monocytes 0.4 10^3/ul (0-0.8); ABS Neutrophils 3.5 10^3/ul (1.5-7.7); Eosinophil % 0.1 %; Hematocrit 25 % (42-52); Hemoglobin 8.2 g/dL (14.0-18.0); Lymphocyte % 13.4 %; Mean Corpuscular HGB Conc 33 g/dL (31-36); Mean Corpuscular Hemoglobin 32 pg (27-31); Mean Corpuscular Volume 96 fL (80-94); Mean Platelet Volume 9.8 fL (7.4-10.4); Platelet Count 146 10^3/uL (150-450); Red Blood Count 2.59 10^6 /uL (4.18-5.48); Red Cell Distribution Width 16 % (10-15); White Blood Count 4.5 10^3/uL (3.5-10.8)
[2019-10-11 06:46] LABS: BUN/Creatinine Ratio 17.5 (8-20); EGFR African American 19.4 (>60); Potassium 4.5 mmol/L (3.5-5.0)
[2019-10-11] MEDS ORDERED: Furosemide IV* 10 MG/ML VIAL (40 MG) IV SLOW PU SCH (08:00)
[2019-10-11] MEDS: Insulin LISPRO* 1 UNITS UNIT SUBCUT SCH ×4 (08:54→20:58)
[2019-10-11] MEDS: Pantoprazole TAB * 40 MG TAB PO SCH (08:55)
[2019-10-11] MEDS: Oseltamivir CAP* 30 MG CAP PO SCH ×2 (08:55→09:08)
[2019-10-11] MEDS: Ferrous Sulfate TAB* 325 MG PO SCH (08:56)
[2019-10-11] MEDS: hydrALAZINE TAB* 25 MG PO SCH (08:56)
[2019-10-11] MEDS: amLODIPine TAB* 5 MG PO SCH (08:56)
[2019-10-11] MEDS: Atorvastatin* 20 MG TAB PO SCH (08:56)
[2019-10-11] MEDS: Calcitriol CAP* 0.25 MCG PO SCH (08:56)
[2019-10-11] MEDS: Carvedilol TAB* 25 MG PO SCH (08:57)
--- NOTE | 2019-10-11 09:24 | PN ---
Subjective Date of Service: 10/11/19 Interval History: Pt stated that we gave him the flu in this hospital , because we insisted on flu vaccine last time he was there. C/o SOB and cough Objective Active Medications: Amlodipine Besylate (Norvasc Tab*) 5 mg PO DAILY [facility] Last Admin: 10/11/19 08:56 Dose: 5 mg Atorvastatin Calcium (Lipitor*) 20 mg PO DAILY [facility] Last Admin: 10/11/19 08:56 Dose: 20 mg Calcitriol (Rocaltrol Cap*) 0.25 mcg PO DAILY [facility] Last Admin: 10/11/19 08:56 Dose: 0.25 mcg Carvedilol (Coreg Tab*) 25 mg PO DAILY [facility] Last Admin: 10/11/19 08:57 Dose: 25 mg Dextrose (D50w Syringe 50 Ml*) 12.5 gm IV PUSH .FOR FS < 60 - SS PRN PRN Reason: FS < 60 Ferrous Sulfate (Ferrous Sulfate Tab*) 325 mg PO DAILY [facility] Last Admin: 10/11/19 08:56 Dose: 325 mg Furosemide (Lasix Iv*) 40 mg IV SLOW PU 0800,1700 [facility] Last Admin: 10/11/19 08:55 Dose: 40 mg Hydralazine HCl (Apresoline Tab*) 75 mg PO QAM [facility] Last Admin: 10/11/19 08:56 Dose: 75 mg Insulin Glargine (Lantus(*)) 12 units SUBCUT QPM [facility] Insulin Human Lispro (Humalog*) 0 units SUBCUT ACHS [facility]; Protocol Last Admin: 10/11/19 08:54 Dose: 3 units Nitroglycerin (Nitroglycerin Tab 0.4 Mg*) 0.4 mg SL Q5M PRN PRN Reason: ANGINA Oseltamivir Phosphate (Tamiflu Cap*) 30 mg PO DAILY [facility] Last Admin: 10/11/19 09:08 Dose: Not Given Pantoprazole Sodium (Protonix Tab*) 40 mg PO DAILY [facility] Last Admin: 10/11/19 08:55 Dose: 40 mg Vital Signs - 8 hr 10/11/19 10/11/19 10/11/19 02:00 02:36 07:39 Temperature 98.1 F 98.1 F 97.6 F Pulse Rate 67 67 57 Respiratory 21 20 16 Rate Blood Pressure 162/72 160/49 145/51 (mmHg) O2 Sat by Pulse 93 95 99 Oximetry 10/11/19 10/11/19 07:56 08:57 Temperature Pulse Rate 61 Respiratory 16 Rate Blood Pressure (mmHg) O2 Sat by Pulse Oximetry Oxygen Devices in Use Now: Nasal Cannula Appearance: 74 yo m in nAD, aAOx3 Eyes: No Scleral Icterus, PERRLA Ears/Nose/Mouth/Throat: NL Teeth, Lips, Gums, Mucous Membranes Moist Neck: NL Appearance and Movements; NL JVP, Trachea Midline Respiratory: Symmetrical Chest Expansion and Respiratory Effort, - - rhonchi at b.l bases L>R Cardiovascular: NL Sounds; No Murmurs; No JVD Abdominal: NL Sounds; No Tenderness; No Distention, No Hepatosplenomegaly Lymphatic: No Cervical Adenopathy Extremities: No Edema Skin: No Rash or Ulcers Neurological: Alert and Oriented x 3, NL Muscle Strength and Tone Result Diagrams: 10/11/19 05:54 10/11/19 05:54 Assess/Plan/Problems-Billing Assessment: This is a 74 year old male with h/o CAD, CKD, chronic GI bleed, with recent hospital stay d/c 10/08/19 for CHF and HTN urgency, now with influenza B - Patient Problems (1) Influenza B Comment: acute , resulting in acute hypoxemic repiratory failure cont renal dosing of Tamiflu (2) Anemia of unknown etiology Current Visit: No Comment: - due to a combination of CKD and h/o chronic GI bleed-stool heme + one week ago , but pt denies BRBPR or melena -due to CKD and troponin of 0.5 when vomiting one week ago-pt is not a good candidate for precedures(EGD, colonoscopy) unless it is in face od acute bleed -last transfusion of 3 U PRBC on 10/03/19 (3) Debility Comment: PT/OT eval requested (4) Nausea & vomiting Comment: intermittent, chronic, ? gastroparesis -cont Reglan prn (5) CKD (chronic kidney disease) stage 4, GFR 15-29 ml/min Comment: - At baseline (6) DM2 (diabetes mellitus, type 2) Comment: - Continue lantus with lispro SS (7) Systolic heart failure, chronic Comment: - EF 40-45% -cont PO Lasix 20 mg every other day (8) DVT prophylaxis Comment: - Heparin SQ stopped due to significant anemia Status and Disposition: inpatient due to readmission, CKD, CAD -palliative consult requested
[2019-10-11] MEDS ORDERED: Metoclopramide IV* 5 MG/ML 2 ML VIAL IV PRN (09:30)
--- NOTE | 2019-10-11 15:19 | PN ---
Progress Note - Progress Note Date of Service: 10/11/19 Note: Pt resting attempted to wake him but he wants to talk tomorrow.
[2019-10-11] MEDS ORDERED: Insulin GLARGINE(*) 1 UNITS UNIT SUBCUT SCH (18:00)
[2019-10-12 06:39] LABS: ABS Lymphocytes 1.2 10^3/ul (1.0-4.8); ABS Monocytes 0.4 10^3/ul (0-0.8); ABS Neutrophils 2.1 10^3/ul (1.5-7.7); Eosinophil % 0.8 %; Hematocrit 22 % (42-52); Hemoglobin 7.6 g/dL (14.0-18.0); Lymphocyte % 32.7 %; Mean Corpuscular HGB Conc 34 g/dL (31-36); Mean Corpuscular Hemoglobin 32 pg (27-31); Mean Corpuscular Volume 94 fL (80-94); Mean Platelet Volume 9.7 fL (7.4-10.4); Platelet Count 151 10^3/uL (150-450); Red Blood Count 2.39 10^6 /uL (4.18-5.48); Red Cell Distribution Width 15 % (10-15); White Blood Count 3.7 10^3/uL (3.5-10.8)
[2019-10-12 06:59] LABS: Calcium 7.8 mg/dL (8.6-10.3)
[2019-10-12 07:05] LABS: BUN/Creatinine Ratio 18.3 (8-20); EGFR Non-African American 15.7 (>60)
[2019-10-12] MEDS ORDERED: Magnesium Hydroxide LIQ* 30 ML UDC PO PRN (07:27)
[2019-10-12] MEDS ORDERED: Polyethylene Glycol 3350* 17 GM PACKET PO PRN (07:27)
[2019-10-12] MEDS ORDERED: Senna TAB 8.6 mg* TAB PO PRN (07:27)
[2019-10-12] MEDS ORDERED: guaiFENesin 100 mg/5 ml LIQ unit dose cup PO PRN (07:51)
--- NOTE | 2019-10-12 07:55 | PN ---
Subjective Date of Service: 10/12/19 Interval History: Pt c/o coughing up "phlegm". Less SOB today Objective Active Medications: Amlodipine Besylate (Norvasc Tab*) 5 mg PO DAILY [facility] Last Admin: 10/11/19 08:56 Dose: 5 mg Atorvastatin Calcium (Lipitor*) 20 mg PO DAILY [facility] Last Admin: 10/11/19 08:56 Dose: 20 mg Calcitriol (Rocaltrol Cap*) 0.25 mcg PO DAILY [facility] Last Admin: 10/11/19 08:56 Dose: 0.25 mcg Carvedilol (Coreg Tab*) 25 mg PO DAILY [facility] Last Admin: 10/11/19 08:57 Dose: 25 mg Dextrose (D50w Syringe 50 Ml*) 12.5 gm IV PUSH .FOR FS < 60 - SS PRN PRN Reason: FS < 60 Docusate Sodium (Colace Cap*) 100 mg PO BID [facility] Ferrous Sulfate (Ferrous Sulfate Tab*) 325 mg PO DAILY [facility] Last Admin: 10/11/19 08:56 Dose: 325 mg Furosemide (Lasix Tab*) 40 mg PO DAILY [facility] Hydralazine HCl (Apresoline Tab*) 75 mg PO QAM [facility] Last Admin: 10/11/19 08:56 Dose: 75 mg Insulin Glargine (Lantus(*)) 15 units SUBCUT QPM [facility] Insulin Human Lispro (Humalog*) 0 units SUBCUT ACHS [facility]; Protocol Last Admin: 10/11/19 20:58 Dose: 2 units Magnesium Hydroxide (Milk Of Magnesia Liq*) 30 ml PO BID [facility] Magnesium Hydroxide (Milk Of Magnesia Liq*) 30 ml PO BID PRN PRN Reason: CONSTIPATION Metoclopramide HCl (Reglan Iv*) 5 mg IV Q6H PRN PRN Reason: NAUSEA/VOMITING Nitroglycerin (Nitroglycerin Tab 0.4 Mg*) 0.4 mg SL Q5M PRN PRN Reason: ANGINA Oseltamivir Phosphate (Tamiflu Cap*) 30 mg PO DAILY [facility] Last Admin: 10/11/19 09:08 Dose: Not Given Pantoprazole Sodium (Protonix Tab*) 40 mg PO DAILY [facility] Last Admin: 10/11/19 08:55 Dose: 40 mg Polyethylene Glycol/Electrolytes (Miralax (17 Gm Dose Ze)) 17 gm PO DAILY PRN PRN Reason: CONSTIPATION Senna (Senokot 8.6 Mg Tab*) 1 tab PO BEDTIME PRN PRN Reason: CONSTIPATION Vital Signs - 8 hr 10/12/19 03:24 Temperature 98.6 F Pulse Rate 62 Respiratory 16 Rate Blood Pressure 154/46 (mmHg) O2 Sat by Pulse 96 Oximetry Oxygen Devices in Use Now: Nasal Cannula Appearance: 74 yo m in nAD, aAOx3 Eyes: No Scleral Icterus, PERRLA Ears/Nose/Mouth/Throat: NL Teeth, Lips, Gums, Mucous Membranes Moist Neck: NL Appearance and Movements; NL JVP, Trachea Midline Respiratory: - - b/l mid lung rhonchi Cardiovascular: NL Sounds; No Murmurs; No JVD, RRR Abdominal: NL Sounds; No Tenderness; No Distention Lymphatic: No Cervical Adenopathy Extremities: No Edema Skin: No Rash or Ulcers Neurological: Alert and Oriented x 3, NL Muscle Strength and Tone Result Diagrams: 10/12/19 06:00 10/12/19 06:00 Microbiology and Other Data: Microbiology 10/10/19 22:39 Aerobic Blood Culture - Preliminary Blood Venous No Growth Day 1 Anaerobic Blood Culture - Preliminary No Growth Day 1 10/10/19 22:39 Aerobic Blood Culture - Preliminary Blood Venous No Growth Day 1 Anaerobic Blood Culture - Preliminary No Growth Day 1 Assess/Plan/Problems-Billing Assessment: This is a 74 year old male with h/o CAD, CKD, chronic GI bleed, with recent hospital stay d/c 10/08/19 for CHF and HTN urgency, now with influenza B - Patient Problems (1) Influenza B Comment: acute , resulting in acute hypoxemic repiratory failure cont renal dosing of Tamiflu (2) Anemia of unknown etiology Current Visit: No Comment: - due to a combination of CKD and h/o chronic GI bleed-stool heme + one week ago , but pt denies BRBPR or melena -due to CKD and troponin of 0.5 when vomiting one week ago-pt is not a good candidate for procedures(EGD, colonoscopy) unless it is in face od acute bleed -today Hb low again- spoke with pt who agrees to have GI evalauation, called Dr. Julian for consult -last transfusion of 3 U PRBC on 10/03/19 (3) Debility Comment: PT/OT eval requested (4) Nausea & vomiting Comment: intermittent, chronic, ? gastroparesis -cont Reglan prn (5) CKD (chronic kidney disease) stage 4, GFR 15-29 ml/min Comment: - At baseline (6) DM2 (diabetes mellitus, type 2) Comment: - Continue lantus with lispro SS (7) Systolic heart failure, chronic Comment: - EF 40-45% -cont PO Lasix 40 mg every day (8) DVT prophylaxis Comment: - Heparin SQ stopped due to significant anemia Status and Disposition: inpatient due to readmission, CKD, CAD -palliative consult requested
[2019-10-12] MEDS: Insulin LISPRO* 1 UNITS UNIT SUBCUT SCH ×4 (09:27→21:06)
[2019-10-12] MEDS: Magnesium Hydroxide LIQ* 30 ML UDC PO SCH ×2 (09:29→22:01)
[2019-10-12] MEDS: Oseltamivir CAP* 30 MG CAP PO SCH (09:29)
[2019-10-12] MEDS: Atorvastatin* 20 MG TAB PO SCH (09:30)
[2019-10-12] MEDS: amLODIPine TAB* 5 MG PO SCH (09:30)
[2019-10-12] MEDS: Carvedilol TAB* 25 MG PO SCH (09:30)
[2019-10-12] MEDS: Calcitriol CAP* 0.25 MCG PO SCH (09:30)
[2019-10-12] MEDS: Furosemide TAB* 40 MG PO SCH (09:30)
[2019-10-12] MEDS: Pantoprazole TAB * 40 MG TAB PO SCH ×2 (09:30→22:01)
[2019-10-12] MEDS: Ferrous Sulfate TAB* 325 MG PO SCH (09:30)
[2019-10-12] MEDS: hydrALAZINE TAB* 25 MG PO SCH (09:30)
[2019-10-12] MEDS: Docusate CAP* 100 MG PO SCH ×2 (09:37→22:01)
--- NOTE | 2019-10-12 12:39 | CONSULT ---
Palliative / Hospice Consult Ordering Provider: Joellen Ambrocio - PCP-Shani Referal Reason: Goals of care/no bowel meds/no narcotics - Subjective Code Status: Full Code-Needs Follow Up Advance Directives Location: No Advance Directives - History or Present Illness History or Present Illness: 74yo male with CHF and CKD stage 3 presents to ER with SOB. PMH is significant for CHF EF 40-45%, CKD stage 3, COPD, DM, HTN, ischemic cardiomyopathy with PCI 2018, h/o lymphoma, and chronic GI bleed. PSCm lives on his own, not , no children, ex tob, no etoh, no drug use, involved in a local [employer], used to eat daily in diner at [address] now the felton Combs provides meals for him and has agreed to be his HCP. Studies CXR-pul edema with small pleural effusion on R, ekg-nsr, H/H 8.2/25, plt 146, BUN/Cr 65/3.72, egfr 16, alb 2.5, BNP >1300 , troponin .07 and Ca 8. Pt admitted with acute on chronic CHF, CKD stage 3 and chronic GI blood loss with anemia. Pt has 1 prior hospitalization and ER visit. All history is from pt and medical record. Lab Values: Abnormal Lab Results 10/11/19 10/11/19 10/11/19 16:22 16:26 16:45 WBC RBC Hgb Hct MCV MCH MCHC RDW Plt Count MPV Neut % (Auto) Lymph % (Auto) Drew % (Auto) Eos % (Auto) Baso % (Auto) Absolute Neuts (auto) Absolute Lymphs (auto) Absolute Monos (auto) Absolute Eos (auto) Absolute Basos (auto) Absolute Nucleated RBC Nucleated RBC % Sodium Potassium Chloride Carbon Dioxide Anion Gap BUN Creatinine Est GFR ( Amer) Est GFR (Non-Af Amer) BUN/Creatinine Ratio Glucose POC Glucose (mg/dL) > 444 H* > 444 H* Glucose Meter Confirm 379 H Calcium 10/11/19 10/12/19 10/12/19 20:19 06:00 06:00 WBC 3.7 RBC 2.39 L Hgb 7.6 L Hct 22 L MCV 94 MCH 32 H MCHC 34 RDW 15 Plt Count 151 MPV 9.7 Neut % (Auto) 55.5 Lymph % (Auto) 32.7 Drew % (Auto) 10.7 Eos % (Auto) 0.8 Baso % (Auto) 0.3 Absolute Neuts (auto) 2.1 Absolute Lymphs (auto) 1.2 Absolute Monos (auto) 0.4 Absolute Eos (auto) 0.0 Absolute Basos (auto) 0.0 Absolute Nucleated RBC 0.0 Nucleated RBC % 0.0 Sodium 135 Potassium 4.0 Chloride 103 Carbon Dioxide 24 Anion Gap 8 BUN 69 H Creatinine 3.78 H Est GFR ( Amer) 19.0 Est GFR (Non-Af Amer) 15.7 BUN/Creatinine Ratio 18.3 Glucose 141 H POC Glucose (mg/dL) 210 H Glucose Meter Confirm Calcium 7.8 L 10/12/19 10/12/19 07:21 11:25 WBC RBC Hgb Hct MCV MCH MCHC RDW Plt Count MPV Neut % (Auto) Lymph % (Auto) Drew % (Auto) Eos % (Auto) Baso % (Auto) Absolute Neuts (auto) Absolute Lymphs (auto) Absolute Monos (auto) Absolute Eos (auto) Absolute Basos (auto) Absolute Nucleated RBC Nucleated RBC % Sodium Potassium Chloride Carbon Dioxide Anion Gap BUN Creatinine Est GFR ( Amer) Est GFR (Non-Af Amer) BUN/Creatinine Ratio Glucose POC Glucose (mg/dL) 163 H 143 H Glucose Meter Confirm Calcium Laboratory Last Values WBC 3.7 10^3/uL (3.5-10.8) 10/12/19 06:00 RBC 2.39 10^6 /uL (4.18-5.48) L 10/12/19 06:00 Hgb 7.6 g/dL (14.0-18.0) L 10/12/19 06:00 Hct 22 % (42-52) L 10/12/19 06:00 MCV 94 fL (80-94) 10/12/19 06:00 MCH 32 pg (27-31) H 10/12/19 06:00 MCHC 34 g/dL (31-36) 10/12/19 06:00 RDW 15 % (10-15) 10/12/19 06:00 Plt Count 151 10^3/uL (150-450) 10/12/19 06:00 MPV 9.7 fL (7.4-10.4) 10/12/19 06:00 Neut % (Auto) 55.5 % 10/12/19 06:00 Lymph % (Auto) 32.7 % 10/12/19 06:00 Drew % (Auto) 10.7 % 10/12/19 06:00 Eos % (Auto) 0.8 % 10/12/19 06:00 Baso % (Auto) 0.3 % 10/12/19 06:00 Absolute Neuts (auto) 2.1 10^3/ul (1.5-7.7) 10/12/19 06:00 Absolute Lymphs (auto) 1.2 10^3/ul (1.0-4.8) 10/12/19 06:00 Absolute Monos (auto) 0.4 10^3/ul (0-0.8) 10/12/19 06:00 Absolute Eos (auto) 0.0 10^3/ul (0-0.6) 10/12/19 06:00 Absolute Basos (auto) 0.0 10^3/ul (0-0.2) 10/12/19 06:00 Absolute Nucleated RBC 0.0 10^3/ul 10/12/19 06:00 Nucleated RBC % 0.0 10/12/19 06:00 Sodium 135 mmol/L (135-145) 10/12/19 06:00 Potassium 4.0 mmol/L (3.5-5.0) 10/12/19 06:00 Chloride 103 mmol/L (101-111) 10/12/19 06:00 Carbon Dioxide 24 mmol/L (22-32) 10/12/19 06:00 Anion Gap 8 mmol/L (2-11) 10/12/19 06:00 BUN 69 mg/dL (6-24) H 10/12/19 06:00 Creatinine 3.78 mg/dL (0.67-1.17) H 10/12/19 06:00 Est GFR ( Amer) 19.0 (>60) 10/12/19 06:00 Est GFR (Non-Af Amer) 15.7 (>60) 10/12/19 06:00 BUN/Creatinine Ratio 18.3 (8-20) 10/12/19 06:00 Glucose 141 mg/dL (70-100) H 10/12/19 06:00 POC Glucose (mg/dL) 143 mg/dL (70-100) H 10/12/19 11:25 Glucose Meter Confirm 379 mg/dL (70-100) H 10/11/19 16:45 Lactic Acid 0.9 mmol/L (0.5-2.0) 10/10/19 22:39 Calcium 7.8 mg/dL (8.6-10.3) L 10/12/19 06:00 Total Bilirubin 0.60 mg/dL (0.2-1.0) 10/10/19 22:20 AST 35 U/L (13-39) 10/10/19 22:20 ALT 49 U/L (7-52) 10/10/19 22:20 Alkaline Phosphatase 136 U/L (34-104) H 10/10/19 22:20 Troponin I 0.07 ng/mL (<0.03) H* 10/10/19 22:20 B-Natriuretic Peptide > 1300 pg/mL (<=100) H 10/10/19 22:39 Total Protein 6.1 g/dL (6.4-8.9) L 10/10/19 22:20 Albumin 3.5 g/dL (3.2-5.2) 10/10/19 22:20 Globulin 2.6 g/dL (2-4) 10/10/19 22:20 Albumin/Globulin Ratio 1.3 (1-3) 10/10/19 22:20 Influenza A (Rapid) Not Reportable 10/11/19 00:54 Influenza B (Rapid) Positive (Negative) H 10/11/19 00:54 - Objective Active Medications: Amlodipine Besylate (Norvasc Tab*) 5 mg PO DAILY [facility] Last Admin: 10/12/19 09:30 Dose: 5 mg Atorvastatin Calcium (Lipitor*) 20 mg PO DAILY [facility] Last Admin: 10/12/19 09:30 Dose: 20 mg Calcitriol (Rocaltrol Cap*) 0.25 mcg PO DAILY [facility] Last Admin: 10/12/19 09:30 Dose: 0.25 mcg Carvedilol (Coreg Tab*) 25 mg PO DAILY [facility] Last Admin: 10/12/19 09:30 Dose: 25 mg Dextrose (D50w Syringe 50 Ml*) 12.5 gm IV PUSH .FOR FS < 60 - SS PRN PRN Reason: FS < 60 Docusate Sodium (Colace Cap*) 100 mg PO BID [facility] [place] Last Admin: 10/12/19 09:37 Dose: 100 mg Ferrous Sulfate (Ferrous Sulfate Tab*) 325 mg PO DAILY [facility] Last Admin: 10/12/19 09:30 Dose: 325 mg Furosemide (Lasix Tab*) 40 mg PO DAILY [facility] Last Admin: 10/12/19 09:30 Dose: 40 mg Guaifenesin (Robitussin 100 Mg/5ml Liq) 5 ml PO Q4H PRN PRN Reason: COUGH Hydralazine HCl (Apresoline Tab*) 75 mg PO QAM [facility] Last Admin: 10/12/19 09:30 Dose: 75 mg Insulin Glargine (Lantus(*)) 15 units SUBCUT QPM [facility] Insulin Human Lispro (Humalog*) 0 units SUBCUT ACHS [facility]; Protocol Last Admin: 10/12/19 11:40 Dose: Not Given Magnesium Hydroxide (Milk Of Magnesia Liq*) 30 ml PO BID [facility] Last Admin: 10/12/19 09:29 Dose: 30 ml Magnesium Hydroxide (Milk Of Magnesia Liq*) 30 ml PO BID PRN PRN Reason: CONSTIPATION Metoclopramide HCl (Reglan Iv*) 5 mg IV Q6H PRN PRN Reason: NAUSEA/VOMITING Nitroglycerin (Nitroglycerin Tab 0.4 Mg*) 0.4 mg SL Q5M PRN PRN Reason: ANGINA Oseltamivir Phosphate (Tamiflu Cap*) 30 mg PO DAILY [facility] Last Admin: 10/12/19 09:29 Dose: 30 mg Pantoprazole Sodium (Protonix Tab*) 40 mg PO BID [facility] Polyethylene Glycol/Electrolytes (Miralax (17 Gm Dose Ze)) 17 gm PO DAILY PRN PRN Reason: CONSTIPATION Last Admin: 10/12/19 09:28 Dose: 17 gm Senna (Senokot 8.6 Mg Tab*) 1 tab PO BEDTIME PRN PRN Reason: CONSTIPATION Vital Signs: Vital Signs: Temp Pulse Resp BP Pulse Ox 98.5 F 59 20 128/34 91 10/12/19 11:37 10/12/19 11:37 10/12/19 11:37 10/12/19 11:37 10/12/19 11:37 Patient Weight: Weight 58.74 kg Intake and Output: Intake & Output 10/10/19 10/11/19 10/12/19 10/13/19 06:59 06:59 06:59 06:59 Intake Total 98 1040 Output Total 300 Balance -202 1040 Weight 58.74 kg Intake: IV Fluids 98 Ferric Gluconate 98 Oral 0 1040 Output: Urine 300 Other: # Voids 2 ADLs: Meal Record Start: 10/11/19 01: 27 Freq: DAILY@0900,1400,1800 Status: Active Protocol: Created 10/11/19 01:27 System (Rec: 10/11/19 01:27 System [id number]) Document 10/11/19 09:00 [id number] (Rec: 10/11/19 09:43 [id number] TELE-C11) Document 10/11/19 14:00 [id number] (Rec: 10/11/19 14:11 [id number] TELE-C11) Document 10/11/19 18:00 [id number] (Rec: 10/11/19 18:01 [id number] TELE-C01) Intake and Output Start: 10/10/19 21: 21 Freq: Status: Active Protocol: Created 10/10/19 21:21 System (Rec: 10/10/19 21:21 System [id number]) Document 10/11/19 01:01 [id number] (Rec: 10/11/19 01:26 [id number] [id number]) Intake and Output Start: 10/11/19 01: 27 Freq: DAILY@0600,1400,2200 Status: Active Protocol: Created 10/11/19 01:27 System (Rec: 10/11/19 01:27 System [email or web address]) Document 10/11/19 04:59 [id number] (Rec: 10/11/19 05:00 [id number] TELE-C07) Document 10/11/19 14:00 [id number] (Rec: 10/11/19 14:12 [id number] TELE-C11) Document 10/11/19 14:13 [id number] (Rec: 10/11/19 14:13 [id number] [facility]- [id number]) Document 10/11/19 22:00 [id number] (Rec: 10/12/19 00:24 [id number] TELE-C09) Document 10/12/19 06:00 [id number] (Rec: 02/14/20 06:32 [id number] TELE-C09) Eyes: No Scleral Icterus, PERRLA Ears/Nose/Mouth/Throat: NL Teeth, Lips, Gums, Mucous Membranes Moist Neck: NL Appearance and Movements; NL JVP, Trachea Midline Cardiovascular: NL Sounds; No Murmurs; No JVD, RRR Respiratory: Clear to Auscultation Abdominal: NL Sounds; No Tenderness; No Distention Extremities: No Edema Neurological: Alert and Oriented x 3, NL Muscle Strength and Tone - Assessment Assessment: 74yo male with acute on chronic CHF, CKD stage 3 presents with flu - Plan Consult Plan (MU): Palliative Plan: Long discussion with pt about goals of care. Pt was recently hospitalized 09/30- and was readmitted 10/11. He thinks he was discharged too soon. Pt lives on his own and wants to go back to his home. He is agreeable to REMY at to get stronger so he can return home. Also discussed HCP and he wants Landy Combs who provides meals for him to be his HCP. Paperwork signed. Contacted Landy and she is agreeable to be his HCP. She said pt has family but doesn't like to involve them. Also discussed hospice as best way to remain at home. Information/ brochure given. Explained he may not qualify yet but if he deteriorates after rehab he should call them. Pt doesn't want to be chronically vented and says he is ready to and has lived a full life. We discussed [facility] as giving the hospital directions on how to care for him but he doesn't want to sign it, would rather try CPR. [place] he was coerced into signing the MOL[facility] last time. Hospice eligibility based on CHF, CKD stage 3, COPD and chronic GI blood loss. KPS 60%, PPS 60%. - Time On Unit Date of Evaluation: 10/12/19 Hospice Consult Time in: 11:30 Hospice Consult Time Out: 12:30 Hospice Consult Time Total: 60 > 50% of Time Spend In Counseling or Coordinating Care: Yes
[2019-10-12] MEDS ORDERED: fentaNYL* 50 MCG/ML 2 ML VIAL (100 MCG VIAL) ONE (16:53)
[2019-10-12] MEDS ORDERED: Midazolam* 1 MG/ML 10 ML VIAL (10 MG) ONE (16:53)
[2019-10-12] MEDS ORDERED: Insulin GLARGINE(*) 1 UNITS UNIT SUBCUT SCH (18:00)
--- NOTE | 2019-10-12 18:22 | PN ---
Progress Note - Progress Note Date of Service: 10/12/19 Note: GI Brief EGD Note E: nml G: nml D: nml No fresh or old blood Rec: Advance diet Monitor Hgb Anemia likely multifactorial Outpatient follow up with Dr. Rajan to consider colon/capsule vs. conservative approach with iron supplementation. Likely has component of GI loss from AVMs given cardiac and renal disease. Merlin Julian DO 10/12/19 1822
--- NOTE | 2019-10-12 21:07 | CONS ---
CC: Dr. Jignesh Mcleod CONSULTATION REPORT: DATE OF CONSULT: 10/12/19 REQUESTING PHYSICIAN: Dr. Joellen Ambrocio. REASON FOR CONSULT: Anemia. HISTORY OF PRESENT ILLNESS: This is a 74-year-old male with a past medical history of COPD, diabetes , hypertension, ischemic cardiomyopathy, congestive heart failure, presenting to the emergency room w ith shortness of breath. He had been having a productive cough at home and was diagnosed with Influe nza B. He was also found to be more anemic than previously during his laboratory workup. He denies any gross black or blood in the stool. He states he does have dysphagia, solids greater than liquids . He also states he has had epigastric reflux pain, worse after meals, better without eating. He de nies any nausea, vomiting, diarrhea or constipation on a regular basis. He had a upper endoscopy and colonoscopy with the colonoscopy being in May of 2017 where he was found to have diverticulosis, internal hemorrhoids, and a few small polyps. He had an upper endoscopy with Dr. Rajan in March of 2018 that revealed erosive esophagitis. He denies any weight loss or weight gain. The remainder of the 14-point review of systems is grossly negative except for as described in the HPI. PAST MEDICAL HISTORY: 1. Hypertension. 2. Diabetes. 3. PCI. 4. Congestive heart failure. 5. Lymphoma. PAST SURGICAL HISTORY: Cataracts and PCI. MEDICATIONS: Home medications include: 1. Atorvastatin. 2. Calcitriol. 3. Coreg. 4. Ferrous sulfate. 5. Hydralazine. 6. Levemir. 7. Lispro sliding scale. 8. Nitroglycerin. 9. Amlodipine. 10. Furosemide. 11. Omeprazole. ALLERGIES: LEVOFLOXACIN and PENICILLIN. FAMILY HISTORY: No family history of GI cancer or inflammatory bowel disease. SOCIAL HISTORY: Positive tobacco. No alcohol use. REVIEW OF SYSTEMS: The remainder of the 14-point review of systems is grossly negative except for as described in the HPI. PHYSICAL EXAM: Vital Signs: Blood pressure is 141/42, pulse is 63, respiratory rate is 18, he is 98 % on room air, temperature is 97.6. General: Alert, and oriented x3, in no acute distress. HEENT: Atraumatic, normocephalic. Pupils equal, round, reactive to light. Extraocular movements intact. Conjunctivae are pink. Sclerae are anicteric. Cardiovascular: Regular rate and rhythm. S1, S2. Re spiratory: Trace rales at the base, but otherwise fair aeration. Abdomen: Soft, nontender, nondiste nded. Bowel sounds positive. Extremities: No clubbing, no cyanosis, no edema. Psych: Approximate mood and affect.. LABORATORY DATA: Hemoglobin 7.6, previous 8.3. BUN 69, creatinine 3.78. Also of note, he is positi ve for Influenza B. ASSESSMENT AND PLAN: This is a 74-year-old male presenting with cnpra-fy-bpyctre anemia with positiv e occult blood testing. 1. Fcmsn-nj-eefupin anemia. No evidence of overt gastrointestinal bleeding. He does have dysphagia and worsening of reflux. Given this and the drop in his hemoglobin today, I discussed the risks, be nefits, and alternatives and he would like to proceed with upper endoscopy. His lung pedersen are much better today and he has good aeration and he is maintaining a good SpO2. We discussed that given th e overt signs of gastrointestinal loss, if this is negative, we would recommend outpatient followup w chalo Rajan for consideration for either colonoscopy or capsule endoscopy. Interestingly, his he moglobin has been in the 7 to 8 range over the last 3 years with occasional highs up to 11, but seems to hold within this area. Previous colonoscopy revealed diverticulosis and a few small polyps, but no evidence of any etiology of the anemia. With his coronary disease and renal disease, it is certai nly possible that he has evidence of small bowel arteriovenous malformations that may occasionally oo ze from time to time. The best approach may be to optimize him with iron therapy. His anemia is lik marilyn multifactorial with the worsening of his renal insufficiency. 2. History of erosive esophagitis. Continue PPI, it is worthwhile to increase to b.i.d. 3. Influenza B. Per primary team. [id number]/[facility] #: [id number]
--- NOTE | 2019-10-13 02:49 | PRO ---
CC: Dr. Mcleod ESOPHAGOGASTRODUODENOSCOPY REPORT: DATE OF PROCEDURE: 10/12/19 INDICATION FOR PROCEDURE: Iron-deficiency anemia. PROCEDURE PERFORMED: Complete esophagogastroduodenoscopy. MEDICATIONS GIVEN: Include 4 mg IV midazolam. DESCRIPTION OF PROCEDURE: After the EGD procedure including the risks, benefits, and alternatives wi th the risks not limited to perforation, surgery, missed lesions, and/or were explained to the patient, written informed consent was obtained, IV medication was given, and a bite-block was placed between the teeth. The adult Olympus gastroscope was then inserted into the patient's oropharynx into the tubular esophagus. Tubular esophagus was normal in appearance with an intact GE junction. The scope was advanced through lower esophageal sphincter into the stomach. Direct views are normal. On retroflexion, views are normal as well. The scope was then advanced through a widely patent pylorus into the duodenal bulb, C- loop, distal duodenum. These were normal in appearance. There was no fr esh or old blood on the entire exam. The scope was then removed from the patient. He tolerated the procedure well. He returned to the recovery room in stable condition. IMPRESSION: 1. Complete esophagogastroduodenoscopy with biopsies. 2. Essentially normal esophagogastroduodenoscopy. RECOMMENDATIONS: No evidence of overt GI loss at this time. Recommend monitoring hemoglobin. If re maining stable, would consider outpatient followup with Dr. Rajan for consideration of repeat colon oscopy versus capsule endoscopy. Suspect of anemia is multifactorial, but certainly a component of r enal insufficiency contributing. Of note, his hemoglobin has been 7 to 8 for about the last 3 years and the previous colonoscopy in 2017 did not yield the source of diverticulosis and internal hemorrho ids. It is certainly possible that he could have small bowel AVMs and the best treatment for that wo uld be optimizing his iron stores. [id number]/[facility] #: [id number]
[2019-10-13 05:14] LABS: ABS Lymphocytes 0.9 10^3/ul (1.0-4.8); ABS Monocytes 0.4 10^3/ul (0-0.8); ABS Neutrophils 2.4 10^3/ul (1.5-7.7); Eosinophil % 0.8 %; Hematocrit 23 % (42-52); Hemoglobin 7.9 g/dL (14.0-18.0); Lymphocyte % 24.3 %; Mean Corpuscular HGB Conc 34 g/dL (31-36); Mean Corpuscular Hemoglobin 32 pg (27-31); Mean Corpuscular Volume 95 fL (80-94); Mean Platelet Volume 8.9 fL (7.4-10.4); Platelet Count 163 10^3/uL (150-450); Red Blood Count 2.46 10^6 /uL (4.18-5.48); Red Cell Distribution Width 15 % (10-15); White Blood Count 3.7 10^3/uL (3.5-10.8)
[2019-10-13 05:39] LABS: Calcium 7.9 mg/dL (8.6-10.3); Potassium 4.3 mmol/L (3.5-5.0)
[2019-10-13 05:44] LABS: BUN/Creatinine Ratio 16.8 (8-20); EGFR African American 19.6 (>60); EGFR Non-African American 16.2 (>60)
[2019-10-13] MEDS: Insulin LISPRO* 1 UNITS UNIT SUBCUT SCH ×4 (07:47→22:49)
[2019-10-13] MEDS: Furosemide TAB* 40 MG PO SCH (07:49)
[2019-10-13] MEDS: Atorvastatin* 20 MG TAB PO SCH (07:49)
[2019-10-13] MEDS: Calcitriol CAP* 0.25 MCG PO SCH (07:49)
[2019-10-13] MEDS: amLODIPine TAB* 5 MG PO SCH (07:49)
[2019-10-13] MEDS: Pantoprazole TAB * 40 MG TAB PO SCH ×2 (07:49→22:50)
[2019-10-13] MEDS: hydrALAZINE TAB* 25 MG PO SCH (07:49)
[2019-10-13] MEDS: Carvedilol TAB* 25 MG PO SCH (07:49)
[2019-10-13] MEDS: Ferrous Sulfate TAB* 325 MG PO SCH (07:49)
[2019-10-13] MEDS: Oseltamivir CAP* 30 MG CAP PO SCH (07:49)
[2019-10-13] MEDS: Docusate CAP* 100 MG PO SCH ×2 (07:52→20:03)
[2019-10-13] MEDS: Magnesium Hydroxide LIQ* 30 ML UDC PO SCH ×2 (07:52→20:05)
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
[2019-10-13] MEDS: Insulin GLARGINE(*) 1 UNITS UNIT SUBCUT SCH (17:03)
[2019-10-13] MEDS ORDERED: Albuterol/Ipratropium NEB.SOL* Albuterol 2.5 MG/Ipratropium 0.5 MG 3 ML INH PRN (17:43)
[2019-10-13] MEDS: Lactobacillus Acidophilus* 1 TAB PO SCH (22:50)
[2019-10-14] MEDS: Insulin LISPRO* 1 UNITS UNIT SUBCUT SCH ×4 (07:19→21:26)
[2019-10-14] MEDS: Calcitriol CAP* 0.25 MCG PO SCH (07:45)
[2019-10-14] MEDS: Pantoprazole TAB * 40 MG TAB PO SCH ×2 (07:45→21:25)
[2019-10-14] MEDS: Furosemide TAB* 40 MG PO SCH (07:46)
[2019-10-14] MEDS: amLODIPine TAB* 5 MG PO SCH (07:46)
[2019-10-14] MEDS: Ferrous Sulfate TAB* 325 MG PO SCH (07:46)
[2019-10-14] MEDS: Carvedilol TAB* 25 MG PO SCH (07:46)
[2019-10-14] MEDS: Atorvastatin* 20 MG TAB PO SCH (07:46)
[2019-10-14] MEDS: Lactobacillus Acidophilus* 1 TAB PO SCH (07:46)
[2019-10-14] MEDS: Oseltamivir CAP* 30 MG CAP PO SCH (07:46)
[2019-10-14] MEDS: Docusate CAP* 100 MG PO SCH ×2 (07:46→21:25)
[2019-10-14] MEDS: hydrALAZINE TAB* 25 MG PO SCH ×2 (07:46→21:26)
--- NOTE | 2019-10-14 09:55 | PN ---
Subjective Date of Service: 10/14/19 Interval History: Pt initially did not have any complaints however with ROS he did express chest discomfort, states "it feels like a rock", nothing makes it better or worse, not reproducible, no radiating or other pain. Denies SOB although he does appear to have a slight increase in respiratory effort, on RA. Noted 96% on RA this morning. EKG and troponins ordered, duoneb encouraged from nursing, pt agreeable. States that he has had a headache and feels exceptionally tired. HH ordered. States his vision may be more blurry than usual but thinks it is in relation to his headache. Denies any swelling or unusual numbness/tingling. Objective Active Medications: Albuterol/Ipratropium (Duoneb (Albuterol 2.5 Mg/Ipratropium 0.5 Mg)) 1 neb INH Q6H PRN PRN Reason: SOB/WHEEZING Amlodipine Besylate (Norvasc Tab*) 5 mg PO DAILY [facility] Last Admin: 10/14/19 07:46 Dose: 5 mg Atorvastatin Calcium (Lipitor*) 20 mg PO DAILY [facility] Last Admin: 10/14/19 07:46 Dose: 20 mg Calcitriol (Rocaltrol Cap*) 0.25 mcg PO DAILY [facility] Last Admin: 10/14/19 07:45 Dose: 0.25 mcg Carvedilol (Coreg Tab*) 25 mg PO DAILY [facility] Last Admin: 10/14/19 07:46 Dose: 25 mg Dextrose (D50w Syringe 50 Ml*) 12.5 gm IV PUSH .FOR FS < 60 - SS PRN PRN Reason: FS < 60 Docusate Sodium (Colace Cap*) 100 mg PO BID [facility] Last Admin: 10/14/19 07:46 Dose: Not Given Ferrous Sulfate (Ferrous Sulfate Tab*) 325 mg PO DAILY [facility] Last Admin: 10/14/19 07:46 Dose: 325 mg Furosemide (Lasix Tab*) 40 mg PO DAILY [facility] Last Admin: 10/14/19 07:46 Dose: 40 mg Guaifenesin (Robitussin 100 Mg/5ml Liq) 5 ml PO Q4H PRN PRN Reason: COUGH Hydralazine HCl (Apresoline Tab*) 75 mg PO QAM [facility] Last Admin: 10/14/19 07:46 Dose: 75 mg Insulin Glargine (Lantus(*)) 17 units SUBCUT QPM [facility] Last Admin: 10/13/19 17:03 Dose: 17 unit Insulin Human Lispro (Humalog*) 0 units SUBCUT ACHS [facility]; Protocol Last Admin: 10/14/19 07:19 Dose: Not Given Lactobacillus Rhamnosus (Lactobacillus Acidophilus*) 1 tab PO DAILY [facility] Last Admin: 10/14/19 07:46 Dose: 1 tab Magnesium Hydroxide (Milk Of Juan Liq*) 30 ml PO BID PRN PRN Reason: CONSTIPATION Metoclopramide HCl (Reglan Iv*) 5 mg IV Q6H PRN PRN Reason: NAUSEA/VOMITING Nitroglycerin (Nitroglycerin Tab 0.4 Mg*) 0.4 mg SL Q5M PRN PRN Reason: ANGINA Oseltamivir Phosphate (Tamiflu Cap*) 30 mg PO DAILY [facility] Last Admin: 10/14/19 07:46 Dose: 30 mg Pantoprazole Sodium (Protonix Tab*) 40 mg PO BID [facility] Last Admin: 10/14/19 07:45 Dose: 40 mg Polyethylene Glycol/Electrolytes (Miralax (17 Gm Dose Ze)) 17 gm PO DAILY PRN PRN Reason: CONSTIPATION Last Admin: 10/12/19 09:28 Dose: 17 gm Senna (Senokot 8.6 Mg Tab*) 1 tab PO BEDTIME PRN PRN Reason: CONSTIPATION Vital Signs - 8 hr 10/14/19 10/14/19 10/14/19 03:24 07:15 07:23 Temperature 99.4 F 98.6 F Pulse Rate 64 61 Respiratory 16 16 20 Rate Blood Pressure 162/43 148/46 (mmHg) O2 Sat by Pulse 95 96 Oximetry Oxygen Devices in Use Now: None Appearance: Sitting up in bed, calm but appears to have mild discomfort, interactive and cooperative Eyes: No Scleral Icterus, - - PERRL Ears/Nose/Mouth/Throat: Mucous Membranes Moist Respiratory: - - Appears to have slightly increased respiratory effort but not exaggerated. BUL clear, RML and RLL rhonchi, LLL diminished with audible rhonchi. Coughing up thin dark yellow mucous. Cardiovascular: - - HRR, S1/S2 present, 3/6 systolic murmur noted throughout areas of auscultation, no rubs or gallops. Abdominal: - - BS throughout, SNT. Extremities: No Edema Neurological: Alert and Oriented x 3 Nutrition: Taking PO's Result Diagrams: 10/14/19 10:30 10/13/19 04:59 Additional Lab and Data: Laboratory Results - last 24 hr 10/12/19 10/12/19 10/13/19 15:37 21:03 04:59 WBC 3.7 RBC 2.46 L Hgb 7.9 L Hct 23 L MCV 95 H MCH 32 H MCHC 34 RDW 15 Plt Count 163 MPV 8.9 Neut % (Auto) 63.6 Lymph % (Auto) 24.3 [place] % (Auto) 11.1 Eos % (Auto) 0.8 Baso % (Auto) 0.2 Absolute Neuts (auto) 2.4 Absolute Lymphs (auto) 0.9 L Absolute Monos (auto) 0.4 Absolute Eos (auto) 0.0 Absolute Basos (auto) 0.0 Absolute Nucleated RBC 0.0 Nucleated RBC % 0.0 Sodium Potassium Chloride Carbon Dioxide Anion Gap BUN Creatinine Est GFR ( Amer) Est GFR (Non-Af Amer) BUN/Creatinine Ratio Glucose POC Glucose (mg/dL) 134 H 115 H Calcium 10/13/19 10/13/19 10/13/19 04:59 07:10 11:10 WBC RBC Hgb Hct MCV MCH MCHC RDW Plt Count MPV Neut % (Auto) Lymph % (Auto) [place] % (Auto) Eos % (Auto) Baso % (Auto) Absolute Neuts (auto) Absolute Lymphs (auto) Absolute Monos (auto) Absolute Eos (auto) Absolute Basos (auto) Absolute Nucleated RBC Nucleated RBC % Sodium 138 Potassium 4.3 Chloride 104 Carbon Dioxide 28 Anion Gap 6 BUN 62 H Creatinine 3.68 H Est GFR ( Amer) 19.6 Est GFR (Non-Af Amer) 16.2 BUN/Creatinine Ratio 16.8 Glucose 257 H POC Glucose (mg/dL) 260 H 303 H Calcium 7.9 L Microbiology and Other Data: Microbiology 10/10/19 22:39 Aerobic Blood Culture - Preliminary Blood Venous No Growth Day 1 Anaerobic Blood Culture - Preliminary No Growth Day 1 10/10/19 22:39 Aerobic Blood Culture - Preliminary Blood Venous No Growth Day 1 Anaerobic Blood Culture - Preliminary No Growth Day 1 Assess/Plan/Problems-Billing Assessment: This is a 74 year old male with h/o CAD, CKD, chronic GI bleed, with recent hospital stay d/c 10/08/19 for CHF and HTN urgency, now with influenza B. - Patient Problems (1) Chest pain at rest Current Visit: Yes Status: Acute Code(s): R07.9 - CHEST PAIN, UNSPECIFIED SNOMED Code(s): 0157565 Comment: states "it feels like a rock", nothing makes it better or worse, not reproducible, no radiating or other pain. Denies SOB although he does appear to have a slight increase in respiratory effort. Feels fatigued. - EKG ordered - trops ordered - duoneb encouraged - HH ordered - nitro PRN Workup unremarkable, pt denied CP later in the day (2) Influenza B Current Visit: Yes Status: Acute Code(s): J10.1 - FLU DUE TO OTH IDENT INFLUENZA VIRUS W OTH RESP MANIFEST SNOMED Code(s): 96629589 Comment: presented to ED with c/o of significant SOB and reports from EMS of O2 SAT 77% in transit, recent admission for CHF for which he was d/c on 10/08. Flu B +. - cont renal dosing of Tamiflu - O2 therapy as needed - supportive measures (3) Anemia of unknown etiology Current Visit: No Status: Acute Priority: High Code(s): D64.9 - ANEMIA, UNSPECIFIED SNOMED Code(s): 96254046 Comment: Chronic anemia dating back to at least 2014, values appear to consistently wax and wane since 2018 per prior records. RDW often high, not always. Very well with a component of chronic disease, iron deficiency, chronic slow bleed likely GI in origin. last transfusion of 3 units PRBC on 10/03/19. Stool occult blood + from 10/12. GI consult. EGD -. - GI recommends outpatient f/u with for colonoscopy/video capsule or more conservative treatment with iron replacement - trend HH - continue to monitor - (4) Systolic heart failure, chronic Current Visit: No Status: Chronic Priority: Medium Code(s): I50.22 - CHRONIC SYSTOLIC (CONGESTIVE) HEART FAILURE SNOMED Code(s): 468219538 Comment: EF 40-45%. Recent d/c from hospital on 10/08 for admission in relation to CHF. Has already had palliative care consult with in relation to poor prognosis for disease course, per her notes pt decided that he wanted to be a Full Code noting "he would rather try CPR". Last chest XRay showed pulmonary edema. Using O2 for symptomatic treatment. Denied feeling SOB during morning interview but did appear to have a slight increase in effort. Not showing clinical signs of exacerbation during exam. Na and K normalized at last draw. - continue Lasix 40mg PO daily - continue BB (5) CKD (chronic kidney disease) stage 4, GFR 15-29 ml/min Current Visit: No Status: Chronic Priority: Medium Code(s): N18.4 - CHRONIC KIDNEY DISEASE, STAGE 4 (SEVERE) SNOMED Code(s): 245970093 Comment: At baseline function per lab work - renal diet - renal dosing for necessary meds - continue to monitor for further decline (6) COPD (chronic obstructive pulmonary disease) Current Visit: Yes Status: Acute Code(s): J44.9 - CHRONIC OBSTRUCTIVE PULMONARY DISEASE, UNSPECIFIED SNOMED Code(s): 88894501 Comment: Hx of COPD dx on multiple reports, chest XRay findings do not specifically list COPD however does have findings consistent with a COPD dx. Ex- heavy smoker who has titrated down his smoking frequency over the years. Not currently being treated for COPD and states that he has never been treated. Considering this patient is often using O2, is sometimes SOB and O2 therapy relieves his symptoms, not showing exacerbation of HF at this time, COPD may very well be a component of his SOB and O2 requirement. - duoneb PRN ordered for SOB/wheezing, if pt responds well to this medication continued treatment may be considered for home use - O2 therapy as needed - continue to monitor (7) DM2 (diabetes mellitus, type 2) Current Visit: No Status: Chronic Priority: Medium Comment: Long acting insulin dosage increase on 10/12. Consistently elevated glucose levels continue, now lows. - Lantus - Conservative increase from 15un to 17un daily - Continue with lispro SS - FS monitoring ACHS - renal with consistent carb diet (8) DVT prophylaxis Current Visit: No Status: Acute Priority: High Code(s): NGZ7756 - SNOMED Code(s): 593388853 Comment: - Heparin SQ stopped due to significant anemia - SCDs Status and Disposition: Status: stable Disposition:inpatient, 4S Attending: Teresa Bang
[2019-10-14 10:52] LABS: Hematocrit 23 % (42-52); Hemoglobin 7.7 g/dL (14.0-18.0)
[2019-10-14 11:24] LABS: Troponin I 0.04 ng/mL (<0.03)
[2019-10-14 14:29] LABS: Troponin I 0.04 ng/mL (<0.03)
[2019-10-14] MEDS: Insulin GLARGINE(*) 1 UNITS UNIT SUBCUT SCH (16:56)
[2019-10-14 17:27] LABS: Troponin I 0.04 ng/mL (<0.03)
[2019-10-14] MEDS: Lisinopril TAB* 5 MG PO SCH (21:25)
[2019-10-15 06:38] LABS: Hematocrit 25 % (42-52); Hemoglobin 8.4 g/dL (14.0-18.0)
[2019-10-15 06:55] LABS: BUN/Creatinine Ratio 14.6 (8-20); EGFR African American 21.8 (>60)
[2019-10-15] MEDS: Insulin LISPRO* 1 UNITS UNIT SUBCUT SCH ×3 (08:03→17:41)
[2019-10-15] MEDS: Calcitriol CAP* 0.25 MCG PO SCH (09:36)
[2019-10-15] MEDS: Ferrous Sulfate TAB* 325 MG PO SCH (09:36)
[2019-10-15] MEDS: Oseltamivir CAP* 30 MG CAP PO SCH (09:36)
[2019-10-15] MEDS: Lisinopril TAB* 5 MG PO SCH (09:36)
[2019-10-15] MEDS: Lactobacillus Acidophilus* 1 TAB PO SCH (09:37)
[2019-10-15] MEDS: Atorvastatin* 20 MG TAB PO SCH (09:37)
[2019-10-15] MEDS: Docusate CAP* 100 MG PO SCH (09:37)
[2019-10-15] MEDS: amLODIPine TAB* 5 MG PO SCH (09:37)
[2019-10-15] MEDS: Carvedilol TAB* 25 MG PO SCH (09:37)
[2019-10-15] MEDS: hydrALAZINE TAB* 25 MG PO SCH ×2 (09:37→16:14)
[2019-10-15] MEDS: Furosemide TAB* 40 MG PO SCH (09:37)
[2019-10-15] MEDS: Pantoprazole TAB * 40 MG TAB PO SCH (09:37)
[2019-10-15] MEDS ORDERED: SPIRIVA Respimat* (tiotropium) 2.5 mcg/inh Inhaler INH SCH (10:00)
[2019-10-15] MEDS ORDERED: Ferric Gluconate IV* 125 MG in NS 0.9% 100 ML* 100 ML IVPB ONE (10:00)
[2019-10-15 15:10] VITALS: BP 120/39
[2019-10-15] MEDS: Insulin GLARGINE(*) 1 UNITS UNIT SUBCUT SCH (17:41)
--- NOTE | 2019-10-15 23:42 | DS ---
CC: Dr. Mcleod; Dr. Julian * DISCHARGE SUMMARY: DATE OF ADMISSION: 10/11/19 DATE OF DISCHARGE: 10/15/19 ATTENDING PHYSICIAN WHILE IN THE HOSPITAL: Dr. Mary Grace Munoz * (dictated by VIC Pedraza). PRIMARY CARE PROVIDER: Dr. Mcleod. CONSULTING DOUGH MIXER: Dr. Julian. PRIMARY DIAGNOSES: 1. Influenza B. 2. Acute hypoxic respiratory failure, resolved, likely related to influenza and likely underlying chronic obstructive pulmonary disease. 3. Anemia with underlying component of anemia of chronic disease as well as iron deficiency anemia. SECONDARY DIAGNOSES: 1. Tobacco use. 2. History of lymphoma. 3. Diabetes. 4. Coronary artery disease. 5. Chronic kidney disease. 6. History of gastrointestinal bleed. 7. Heart failure with reduced ejection fraction (last time ejection fraction 40 % to 45%). 8. Hypertension. PERTINENT STUDIES WHILE IN THE HOSPITAL: Chest x-ray on 10/10/19, impression: Findings were most consistent with pulmonary edema with small pleural effusion on the right. PROCEDURES WHILE IN THE HOSPITAL: Endoscopy on 10/12/[address] Julian. Significant findings: Essentially normal EGD. HISTORY OF PRESENT ILLNESS/HOSPITAL COURSE: Vasquez Damon is a 74-year-old white male with past medical history significant for coronary artery disease, diabetes, and heart failure with reduced ejection fraction, who presented to the emergency department due to shortness of breath and is admitted to the hospital on 10/11/19. The patient was found to be positive for influenza B and he was treated with Tamiflu for a total of 5 days given his renal function, this was considered a complete treatment. The patient developed acute respiratory failure and was requiring oxygen and by date of discharge, this was resolved and he was resting and ambulating with oxygen saturation well above 95% . Given that the patient has approximately 60 years of smoking history, he likely has underlying COPD which is exacerbated by influenza B. Given that the patient was afebrile during the entirety of his hospital stay, chest x-ray had no consolidation and he was without leukocytosis during entirety of his hospital stay and empiric antibiotic therapy was not given and the patient did improve greatly by the day of discharge. Smoking cessation was discussed and he was not interested at this time. The patient is known to have anemia at baseline and this did persist during his hospital stay. Due to his history of GI bleed in the past, an endoscopy was performed which was essentially normal. Dr. Julian recommended outpatient colonoscopy or possible small bowel swallow study. The patient did receive 2 IV doses of Fioricet and his H and H was minimally improved by date of discharge. His most recent hemoglobin is 8.4 and hematocrit got up to 25. Regarding his CKD, his creatinine was at 2 baseline by date of discharge. Of note, the patient had initially elevated troponin of 0.07 at discharge and later was 0.04. The patient did not have any ischemic changes to his EKG and this was likely related to some ischemic events in the setting of his acute illness. Of note, the patient was seen by our palliative care doctor, Dr. Meadows and goals of care discussion was initiated and the patient was interested in going to [facility] for rehab. He ultimately accepted at [facility] but later the patient declined and was hoping to just go home and additionally during his hospitalization, he was declining VNS or other home care services and plan for his probably hired aide to continue helping care for him. Additionally, the patient was found to be frequently hypertension during his initial days of his hospital stay and he was started on lisinopril and he had good control of his blood pressure after that point. Additionally, this will have a renoprotective effect. Additionally, the patient had his Lasix increased and this had good effect. PHYSICAL EXAMINATION ON DAY OF DISCHARGE: General: A thin elderly white male, lying upright in the hospital bed, appearing comfortable in no acute distress. Eyes: PERRLA, sclerae anicteric. Lungs: Clear to auscultation throughout. Cardio: Regular rate and rhythm without murmurs, rubs, or gallops. Abdomen: Soft, nontender, and nondistended. Extremities: No clubbing, cyanosis, or edema. Neuro: The patient is alert and oriented x3. DISCHARGE PLAN: The patient will be going home as he refused subacute rehab placement which he initially was agreeable to. As previously mentioned, it is recommended that the patient has outpatient colonoscopy or small bowel study and should have outpatient followup with GI to perform this. I advised him to follow up with his primary care provider, Dr. Mcleod, in 1 week. At this time, it will be beneficial for the patient to have repeat CBC and BMP. The patient was advised to continue taking p.r.n. cough medicine to increase his frequency of his iron supplement. The patient should return to the emergency department if he experience any fever, chills, difficulty breathing, chest pain, abdominal pain, bright red blood per rectum, or other concern especially associated with dizziness or lightheadedness. The patient would likely benefit from outpatient PFTs as well. DISCHARGE MEDICATIONS: Continued home medications: 1. Carvedilol 25 mg p.o. daily. 2. Lipitor 20 mg p.o. daily. 3. Hydralazine 75 mg p.o. daily. 4. 15 units subcu b.i.d. per sliding scale as prescribed by Dr. Mcleod. 5. Insulin detemir 15 units subcu q.p.m. 6. Amlodipine 5 mg p.o. daily. 7. Nitroglycerin 0.4 mg sublingual q.5 minutes p.r.n. angina. 8. Calcitriol 0.25 mcg p.o. daily. 9. Omeprazole 20 mg p.o. daily. New medications: 1. Robitussin 5 mL p.o. q.4 hours p.r.n. cough. 2. Tessalon 100 mg p.o. t.i.d. p.r.n. cough. 3. Lisinopril 2.5 mg p.o. daily. 4. Lasix 40 mg daily. 5. Ferrous sulfate 325 mg p.o. t.i.d. Discontinued home medications: 1. Lasix 20 mg p.o. daily. 2. Ferrous sulfate 325 mg p.o. daily. DIET: Low carbohydrate diet, heart healthy diet. ACTIVITY: Return to normal activity as tolerated. CONDITION ON DISCHARGE: Stable. DISPOSITION: Home. TIME SPENT: Approximately 35 minutes was spent on his discharge, approximately half this time was spent at the bedside evaluating the patient and discussing the plan of care. VIC PEDRAZA [id number]/CPS #: [id number] MTDD
== END 2019-10-15 19:15 | disposition home or self-care (01) | DRG 193 ==
LOC: ED 21:12 → MEDTELE 10-11 00:31
PROVIDERS: ADMIT Internal Medicine; ATTEND Internal Medicine
PROC: 0DJ08ZZ Inspection of Upper Intestinal Tract, Via Natural or Artificial Opening Endoscopic (ICD-10-PCS; principal; 2019-10-12)
DX: J10.1 Influenza due to other identified influenza virus with other respiratory manifestations (principal); J96.01 Acute respiratory failure with hypoxia; J44.1 Chronic obstructive pulmonary disease with (acute) exacerbation; I13.0 Hypertensive heart and chronic kidney disease with heart failure and stage 1 through stage 4 chronic kidney disease, or unspecified chronic kidney disease; N18.4 Chronic kidney disease, stage 4 (severe); I50.22 Chronic systolic (congestive) heart failure; E11.22 Type 2 diabetes mellitus with diabetic chronic kidney disease; I25.10 Atherosclerotic heart disease of native coronary artery without angina pectoris; E78.00 Pure hypercholesterolemia, unspecified; K21.9 Gastro-esophageal reflux disease without esophagitis; H91.90 Unspecified hearing loss, unspecified ear; G43.909 Migraine, unspecified, not intractable, without status migrainosus; F41.9 Anxiety disorder, unspecified; F17.210 Nicotine dependence, cigarettes, uncomplicated; I45.10 Unspecified right bundle-branch block; I25.5 Ischemic cardiomyopathy; Z66 Do not resuscitate; D50.9 Iron deficiency anemia, unspecified; E78.5 Hyperlipidemia, unspecified; D63.1 Anemia in chronic kidney disease; R79.89 Other specified abnormal findings of blood chemistry; F32.9 Major depressive disorder, single episode, unspecified; Z88.1 Allergy status to other antibiotic agents; Z88.0 Allergy status to penicillin; I25.2 Old myocardial infarction; Z98.42 Cataract extraction status, left eye; Z98.41 Cataract extraction status, right eye; Z85.72 Personal history of non-Hodgkin lymphomas; Z79.4 Long term (current) use of insulin; Z79.899 Other long term (current) drug therapy
CPT/HCPCS: 36415; 71046; 80048; 80053; 82272; 82947; 83605; 83880; 84484; 85014; 85018; 85025; 87040; 93005; 96374; 99156; 99284; A9270-GY; J1940; J2250; J2916; J3010; J3535

== ENCOUNTER 2021-11-18 21:21 | Inpatient (IN) ==
[2021-11-18] MEDS ORDERED: Lactated Ringers 500 ml BAG 500 ML IV ONE (21:57)
[2021-11-18 22:21] LABS: ABS Eosinophils 0.1 10^3/ul (0-0.6); ABS Lymphocytes 1.3 10^3/ul (1.0-4.8); ABS Monocytes 0.5 10^3/ul (0-0.8); ABS Neutrophils 4.7 10^3/ul (1.5-7.7); Eosinophil % 1.6 %; Hematocrit 26 % (42-52); Hemoglobin 8.6 g/dL (14.0-18.0); Lymphocyte % 19.8 %; Mean Corpuscular HGB Conc 33 g/dL (31-36); Mean Corpuscular Hemoglobin 32 pg (27-31); Mean Corpuscular Volume 98 fL (80-94); Mean Platelet Volume 8.2 fL (7.4-10.4); Platelet Count 223 10^3/uL (150-450); Red Blood Count 2.66 10^6 /uL (4.18-5.48); Red Cell Distribution Width 15 % (10-15); White Blood Count 6.6 10^3/uL (3.5-10.8)
[2021-11-18 22:28] LABS: INR 0.99 (0.86-1.15)
[2021-11-18 23:01] LABS: Albumin 3.5 g/dL (3.2-5.2); Albumin/Globulin Ratio 1.4 (1-3); Calcium 8.3 mg/dL (8.6-10.3); Globulin 2.5 g/dL (2-4); Potassium 4.2 mmol/L (3.5-5.0); Total Bilirubin 0.3 mg/dL (0.2-1.0)
[2021-11-18] MEDS ORDERED: Lactated Ringers 1000 ml BAG 1,000 ML IV ONE (23:25)
[2021-11-18 23:48] LABS: High Sensitivity Troponin 1 Hr 27 pg/mL (<20)
[2021-11-18 23:57] LABS: Magnesium 1.9 mg/dL (1.9-2.7)
[2021-11-19 00:03] LABS: Phosphorus 4.5 mg/dL (2.5-5.0)
[2021-11-19 01:23] LABS: Urine Appearance Cloudy; Urine Bilirubin Negative (Negative); Urine Blood 1+ (Negative); Urine Color Yellow; Urine Glucose Negative (Negative); Urine Ketones Negative (Negative); Urine Nitrite Negative (Negative); Urine Protein 1+(30 mg/dL) (Negative); Urine Specific Gravity 1.012 (1.002-1.030); Urine Urobilinogen Negative (Negative)
[2021-11-19 01:41] LABS: Urine Bacteria 1+ (Absent); Urine Red Blood Cell 2+(6-10/hpf) (Absent); Urine White Blood Cell 3+(>20/hpf) (Absent)
[2021-11-19] MEDS ORDERED: Magnesium Sulfate 2 gm BAG 2 GM/50 ML BAG IVPB ONE (04:47)
[2021-11-19] MEDS ORDERED: Albuterol HFA INHALER 8 gm MDI INH PRN (05:28)
[2021-11-19 06:59] LABS: ABS Eosinophils 0.2 10^3/ul (0-0.6); ABS Lymphocytes 1.7 10^3/ul (1.0-4.8); ABS Monocytes 0.6 10^3/ul (0-0.8); ABS Neutrophils 5.1 10^3/ul (1.5-7.7); Eosinophil % 2.5 %; Hematocrit 26 % (42-52); Hemoglobin 8.5 g/dL (14.0-18.0); Lymphocyte % 22.3 %; Mean Corpuscular HGB Conc 33 g/dL (31-36); Mean Corpuscular Hemoglobin 32 pg (27-31); Mean Corpuscular Volume 97 fL (80-94); Platelet Count 239 10^3/uL (150-450); Red Blood Count 2.63 10^6 /uL (4.18-5.48); Red Cell Distribution Width 15 % (10-15); White Blood Count 7.6 10^3/uL (3.5-10.8)
[2021-11-19 07:29] LABS: Calcium 8.7 mg/dL (8.6-10.3); Magnesium 2.5 mg/dL (1.9-2.7); Potassium 4.5 mmol/L (3.5-5.0); eGFR CKD-EPI 13.8 (>60)
[2021-11-19 08:42] LABS: Ferritin 199.4 ng/mL (24-336)
[2021-11-19 08:47] LABS: Folate 9.94 ng/mL (5.90-24.80)
[2021-11-19] MEDS ORDERED: Lactated Ringers 1000 ml BAG 1,000 ML IV SCH (12:00)
[2021-11-19] MEDS ORDERED: Dextrose 50% Syringe 50 ml 25 GM/50 ML SYRINGE IV PUSH PRN (16:26)
[2021-11-19] MEDS: Insulin GLARGINE 100 un/ml 10 ml VIAL SUBCUT SCH (20:34)
[2021-11-20 05:52] LABS: ABS Eosinophils 0.1 10^3/ul (0-0.6); ABS Lymphocytes 1.3 10^3/ul (1.0-4.8); ABS Monocytes 0.5 10^3/ul (0-0.8); ABS Neutrophils 4.9 10^3/ul (1.5-7.7); Eosinophil % 2.1 %; Hematocrit 22 % (42-52); Hemoglobin 7.4 g/dL (14.0-18.0); Lymphocyte % 18.3 %; Mean Corpuscular HGB Conc 33 g/dL (31-36); Mean Corpuscular Hemoglobin 32 pg (27-31); Mean Corpuscular Volume 96 fL (80-94); Mean Platelet Volume 7.7 fL (7.4-10.4); Nucleated Red Blood Cells % 0.1; Platelet Count 206 10^3/uL (150-450); Red Blood Count 2.31 10^6 /uL (4.18-5.48); Red Cell Distribution Width 15 % (10-15); White Blood Count 6.8 10^3/uL (3.5-10.8)
[2021-11-20 06:19] LABS: Calcium 8.3 mg/dL (8.6-10.3); Magnesium 2.2 mg/dL (1.9-2.7); Potassium 4.2 mmol/L (3.5-5.0); eGFR CKD-EPI 14.4 (>60)
[2021-11-20] MEDS: Pantoprazole VIAL 40 MG VIAL IV SCH ×2 (10:21→21:15)
[2021-11-20] MEDS ORDERED: fentaNYL 100 mcg/2 ml 50 MCG/ML VIAL ONE (11:46)
[2021-11-20] MEDS ORDERED: Midazolam 10 mg/10 ml VIAL 1 mg/ml 10 ml VIAL (10 mg) ONE (11:46)
[2021-11-20 16:23] LABS: Hematocrit 23 % (42-52); Hemoglobin 7.6 g/dL (14.0-18.0)
[2021-11-20] MEDS: Insulin GLARGINE 100 un/ml 10 ml VIAL SUBCUT SCH (21:15)
[2021-11-21 07:07] LABS: ABS Eosinophils 0.2 10^3/ul (0-0.6); ABS Lymphocytes 1.1 10^3/ul (1.0-4.8); ABS Monocytes 0.5 10^3/ul (0-0.8); ABS Neutrophils 6.9 10^3/ul (1.5-7.7); Eosinophil % 1.8 %; Hematocrit 25 % (42-52); Hemoglobin 8.5 g/dL (14.0-18.0); Lymphocyte % 12.3 %; Mean Corpuscular HGB Conc 34 g/dL (31-36); Mean Corpuscular Hemoglobin 33 pg (27-31); Mean Corpuscular Volume 95 fL (80-94); Mean Platelet Volume 7.7 fL (7.4-10.4); Platelet Count 190 10^3/uL (150-450); Red Cell Distribution Width 15 % (10-15); White Blood Count 8.7 10^3/uL (3.5-10.8)
[2021-11-21 07:28] LABS: Calcium 8.2 mg/dL (8.6-10.3); Potassium 4.8 mmol/L (3.5-5.0); eGFR CKD-EPI 15.1 (>60)
[2021-11-21] MEDS: Pantoprazole VIAL 40 MG VIAL IV SCH ×2 (08:02→20:45)
[2021-11-21] MEDS ORDERED: Omeprazole 20 mg CAP (NF) PO SCH (09:00)
[2021-11-21] MEDS: Insulin GLARGINE 100 un/ml 10 ml VIAL SUBCUT SCH (20:47)
[2021-11-22 05:08] LABS: ABS Eosinophils 0.1 10^3/ul (0-0.6); ABS Lymphocytes 1.3 10^3/ul (1.0-4.8); ABS Monocytes 0.6 10^3/ul (0-0.8); ABS Neutrophils 6.4 10^3/ul (1.5-7.7); Eosinophil % 1.7 %; Hematocrit 23 % (42-52); Hemoglobin 7.8 g/dL (14.0-18.0); Lymphocyte % 15.5 %; Mean Corpuscular HGB Conc 34 g/dL (31-36); Mean Corpuscular Hemoglobin 32 pg (27-31); Mean Corpuscular Volume 95 fL (80-94); Mean Platelet Volume 8.2 fL (7.4-10.4); Platelet Count 158 10^3/uL (150-450); Red Blood Count 2.42 10^6 /uL (4.18-5.48); Red Cell Distribution Width 15 % (10-15); White Blood Count 8.4 10^3/uL (3.5-10.8)
[2021-11-22] MEDS: Pantoprazole VIAL 40 MG VIAL IV SCH ×2 (08:26→21:37)
[2021-11-22 08:43] LABS: Calcium 8.1 mg/dL (8.6-10.3); Potassium 4.7 mmol/L (3.5-5.0); eGFR CKD-EPI 15.2 (>60)
[2021-11-22] MEDS: Insulin GLARGINE 100 un/ml 10 ml VIAL SUBCUT SCH (21:41)
[2021-11-23 06:23] LABS: Hematocrit 24 % (42-52)
[2021-11-23 07:36] LABS: Calcium 8.3 mg/dL (8.6-10.3); Potassium 4.7 mmol/L (3.5-5.0)
[2021-11-23 07:41] LABS: eGFR CKD-EPI 15.5 (>60)
[2021-11-23] MEDS ORDERED: Dextrose 50% Syringe 50 ml 25 GM/50 ML SYRINGE IV PUSH PRN (16:58)
[2021-11-23] MEDS: Insulin GLARGINE 100 un/ml 10 ml VIAL SUBCUT SCH (20:07)
[2021-11-23] MEDS ORDERED: Insulin GLARGINE 100 un/ml 10 ml VIAL SUBCUT SCH (21:00)
[2021-11-24 05:32] LABS: ABS Eosinophils 0.2 10^3/ul (0-0.6); ABS Lymphocytes 1.3 10^3/ul (1.0-4.8); ABS Monocytes 0.7 10^3/ul (0-0.8); ABS Neutrophils 4.9 10^3/ul (1.5-7.7); Hematocrit 23 % (42-52); Hemoglobin 7.8 g/dL (14.0-18.0); Mean Corpuscular HGB Conc 33 g/dL (31-36); Mean Corpuscular Hemoglobin 32 pg (27-31); Mean Corpuscular Volume 97 fL (80-94); Mean Platelet Volume 8.2 fL (7.4-10.4); Platelet Count 174 10^3/uL (150-450); Red Blood Count 2.42 10^6 /uL (4.18-5.48); Red Cell Distribution Width 15 % (10-15); White Blood Count 7.1 10^3/uL (3.5-10.8)
[2021-11-24 06:14] LABS: Calcium 8.7 mg/dL (8.6-10.3); Magnesium 1.7 mg/dL (1.9-2.7); Potassium 4.9 mmol/L (3.5-5.0)
[2021-11-24] MEDS: Insulin GLARGINE 100 un/ml 10 ml VIAL SUBCUT SCH ×2 (08:55→21:04)
[2021-11-24] MEDS: Iron Sucrose 200 MG in NS 0.9% 100 ml BAG 100 ML IVPB SCH (14:52)
[2021-11-25 07:06] LABS: ABS Eosinophils 0.2 10^3/ul (0-0.6); ABS Lymphocytes 1.2 10^3/ul (1.0-4.8); ABS Monocytes 0.9 10^3/ul (0-0.8); ABS Neutrophils 7.7 10^3/ul (1.5-7.7); Eosinophil % 1.7 %; Hematocrit 21 % (42-52); Lymphocyte % 12.2 %; Mean Corpuscular HGB Conc 33 g/dL (31-36); Mean Corpuscular Hemoglobin 32 pg (27-31); Mean Corpuscular Volume 97 fL (80-94); Mean Platelet Volume 8.9 fL (7.4-10.4); Platelet Count 176 10^3/uL (150-450); Red Blood Count 2.18 10^6 /uL (4.18-5.48); Red Cell Distribution Width 15 % (10-15); White Blood Count 10.1 10^3/uL (3.5-10.8)
[2021-11-25 07:27] LABS: Calcium 8.3 mg/dL (8.6-10.3); eGFR CKD-EPI 14.3 (>60)
[2021-11-25 07:28] LABS: Potassium 5.2 mmol/L (3.5-5.0)
[2021-11-25] MEDS: Insulin GLARGINE 100 un/ml 10 ml VIAL SUBCUT SCH ×2 (10:11→21:27)
[2021-11-25 11:06] LABS: Corrected Retic Count 0.6 % (0.5-1.5); Hematocrit for Retic CNT 24 % (42-52); Immature Retic Fraction 0.41; RBC Retic Count 2.43 10^6/uL (4.18-5.48)
[2021-11-25 14:57] LABS: Calcium 8.4 mg/dL (8.6-10.3); Potassium 4.7 mmol/L (3.5-5.0); eGFR CKD-EPI 14.2 (>60)
[2021-11-25 14:59] LABS: Folate 6.83 ng/mL (5.90-24.80)
[2021-11-26 06:36] LABS: Hematocrit 23 % (42-52); Hemoglobin 7.5 g/dL (14.0-18.0); Mean Corpuscular HGB Conc 33 g/dL (31-36); Mean Corpuscular Hemoglobin 32 pg (27-31); Mean Corpuscular Volume 97 fL (80-94); Mean Platelet Volume 8.6 fL (7.4-10.4); Platelet Count 162 10^3/uL (150-450); Red Blood Count 2.36 10^6 /uL (4.18-5.48); Red Cell Distribution Width 17 % (10-15); White Blood Count 8.5 10^3/uL (3.5-10.8)
[2021-11-26 06:57] LABS: Calcium 8.3 mg/dL (8.6-10.3); Magnesium 1.4 mg/dL (1.9-2.7); Potassium 5.1 mmol/L (3.5-5.0); eGFR CKD-EPI 14.1 (>60)
[2021-11-26] MEDS ORDERED: Magnesium Sulfate IV 3 GM in NS 0.9% 100 ml BAG 100 ML IVPB ONE (07:23)
[2021-11-26] MEDS ORDERED: Magnesium Sulfate 2 GM IV (Premix) IVPB ONE (08:00)
[2021-11-26 08:01] LABS: ABS Eosinophils 0.2 10^3/ul (0-0.6); ABS Lymphocytes 1.9 10^3/ul (1.0-4.8); ABS Monocytes 1.1 10^3/ul (0-0.8); ABS Neutrophils 5.2 10^3/ul (1.5-7.7); Eosinophil % 2.4 %; Lymphocyte % 22.8 %
[2021-11-26] MEDS ORDERED: SODIUM ZIRCONIUM CYCLOSILICATE 5 GM PACKET PO ONE (08:24)
[2021-11-26] MEDS ORDERED: Iron Sucrose 200 MG in NS 0.9% 100 ml BAG 100 ML IVPB SCH (09:00)
[2021-11-26] MEDS ORDERED: Magnesium Sulfate 1 GM IV 1 GM/100 ML BAG IV ONE (09:00)
[2021-11-26] MEDS: Insulin GLARGINE 100 un/ml 10 ml VIAL SUBCUT SCH ×2 (09:12→20:49)
[2021-11-26] MEDS: Iron Sucrose 200 MG in NS 0.9% 100 ml BAG 100 ML IVPB SCH (10:24)
[2021-11-26] MEDS ORDERED: Lactated Ringers 500 ml BAG 500 ML IV ONE (11:01)
[2021-11-27 00:33] VITALS: BP 137/49
[2021-11-27] MEDS ORDERED: Calcium CHLORIDE 10% SYRINGE 1 GM/10 ML ONE ×2 (04:40→05:07)
[2021-11-27] MEDS ORDERED: Sodium Bicarbonate 8.4% SYR 50 ml SYRINGE ONE ×2 (04:40→05:07)
[2021-11-27] MEDS ORDERED: EPINEPHrine SYR 0.1MG/ML 10 ml SYRINGE ONE ×3 (04:40→05:07)
[2021-11-27] MEDS ORDERED: Atropine 0.1 MG/ML 10 ml SYR (1 mg) ONE (05:07)
[2021-11-27 05:27] LABS: Calcium 9.6 mg/dL (8.6-10.3); Magnesium 2.4 mg/dL (1.9-2.7); Sodium 137 mmol/L (135-145)
[2021-11-27 05:32] LABS: Blood Urea Nitrogen 61 mg/dL (6-24); Glucose 192 mg/dL (70-100); eGFR CKD-EPI 12.1 (>60)
[2021-11-27 05:40] LABS: CO2 Carbon Dioxide 11 mmol/L (22-32)
[2021-11-27 05:44] LABS: Anion Gap 14 mmol/L (2-11); Chloride 112 mmol/L (101-111)
== END 2021-11-27 05:20 | disposition expired | DRG 369 ==
LOC: ED 21:21 → EDHOLD 11-19 03:48 → SUATTDRO 11-19 03:48 → MED 11-19 05:22 → ICU 11-27 11:30
PROVIDERS: ADMIT Internal Medicine; ATTEND Internal Medicine